=== PATIENT | female | born 1930 | race Caucasian/White ===

== ENCOUNTER 2016-10-27 22:32 | Emergency (ER) | payer OTHER ==
[~2016-10-27] VITALS: Ht 154.9 cm; Wt 76.1 kg
[~2016-10-27 22:32] MED LIST: ALPR-411 PO; ASPCH81X PO; CHLORTHALIDONE 25 MG PO; LISI10TA PO; [UNRECOGNIZED DRUG - MIXTURE] PO
[2016-10-27 22:42] VITALS: Ht 154.9 cm; Wt 76.1 kg
[2016-10-27 22:43] VITALS: O2SAT 94
[2016-10-27] MEDS ORDERED: HYG/25 PO (23:09)
[2016-10-27] MEDS ORDERED: CHOL2000 PO (23:09)
[2016-10-27] MEDS ORDERED: CALC-20 PO (23:09)
[2016-10-27] MEDS ORDERED: FSMD/70 PO (23:09)
[2016-10-27 23:35] LABS: BASO % 0.2 %; BASO ABS # 0.01 K/uL (0-0.2); COMPLETE YES; EOS % 1.1 %; HEMATOCRIT 37.3 % (37-47); IG% 0.2 %; LYMPH % 27.5 %; LYMPH ABS # 1.71 K/uL (1.2-3.4); MEAN CORPUSCULAR HEMOGLOBIN 29.6 pg (25-34); MEAN CORPUSCULAR HGB CONC 34.9 g/dl (32-36); MEAN PLATELET VOLUME 11.2 fL (7.4-10.4); MONO % 2.3 %; NEUT % 68.7 %; PLATELET COUNT 210 K/uL (130-400); RED BLOOD COUNT 4.39 M/uL (4.2-5.4); WHITE BLOOD COUNT 6.21 K/uL (4.8-10.8)
[2016-10-27 23:46] LABS: INR 0.9 (0.9-1.1); PROTHROMBIN TIME (PATIENT) 9.7 SECONDS (9.0-12.0)
[2016-10-27 23:59] LABS: ALT/SGPT 21 U/L (12-78); BLOOD UREA NITROGEN 12 mg/dl (7-18); CALCIUM 8.9 mg/dl (8.5-10.1); CARBON DIOXIDE 27 mmol/L (21-32); CHLORIDE 102 mmol/L (98-107); CREATININE 0.73 mg/dl (0.60-1.20); GLUCOSE 110 mg/dl (70-99); POTASSIUM 3.9 mmol/L (3.5-5.1); SODIUM 139 mmol/L (136-145)
[2016-10-28 00:10] LABS: ALKALINE PHOSPHATASE 144 U/L (45-117); AST/SGOT 22 U/L (15-37); CKMB/CK RATIO 1.2 (0-3.0)
[2016-10-28 00:40] LABS: URINE APPEARANCE CLEAR (CLEAR); URINE BILIRUBIN NEG (NEG); URINE COLOR YELLOW; URINE EPITHELIAL CELL AUTO 20-30 /lpf (0-5); URINE NITRITE NEG (NEG); URINE SPECIFIC GRAVITY 1.012 (1.000-1.030); UROBILINOGEN NEG (NEG)
[2016-10-28 00:41] LABS: MANUAL MICROSCOPIC REQUIRED? NO; REVIEW REQ? NO
[2016-10-28] MEDS ORDERED: LEVOFLOXACIN 250 MG TAB PO STA (00:53)
[2016-10-28] MEDS ORDERED: CEFTRIAXONE SOD INJ 1 GM ADDVIAL IV STA (00:53)
[2016-10-28] MEDS ORDERED: LEVO-366 PO (01:21)
--- NOTE | 2016-10-28 01:21 | EMERGENCY ROOM VISIT NOTE ---
History Report prepared by James: Irineo Brock Under the Supervision of: Dr. Dung Horn D.O. First contact with patient: 23:27 Chief Complaint: CARDIAC ASSESSMENT Stated Complaint: CARDIAC ASSESMENT Nursing Triage Summary: ABOUT 2144 GOT OUT OF CHAIR HAD "SHAKING " AND SUDDEN SOB. SOB WENT AWAT, FELT BETTER. DENIES CP. DENIES COUGH, HAVING SLIGHT NAUSEA THINKS IT IS HER NERVES. [facility] History of Present Illness The patient is an 86 year old female who presents to the Emergency Room for an acute cardiac assessment. The patient states that around 2144 tonight she started shaking and became short of breath. The patient is no longer short of breath and the shaking has improved. The patient's family notes that the shaking in the patient's arms was very obvious. She had some diarrhea yesterday. The patient denies recent cough, congestion, sore throat, chest pain , abdominal pain, urinary symptoms, or rashes. Per nursing staff, the patient was febrile upon arrival to the ED. Source of History: patient, family, nursing staff Onset: 2144 tonight Position: other (global) Quality: other (cardiac assessment) Timing: other (acute) Associated Symptoms: + fevers, + SOB, + diarrhea, No sorethroat, No cough, No chest pain, No abdominal pain, No urinary symptoms, No rash Review of Systems See HPI for pertinent positives & negatives. A total of 10 systems reviewed and were otherwise negative. Past Medical & Surgical Medical Problems: (1) HTN (hypertension) (2) Osteoporosis Family History Diabetes mellitus Heart disease Social History Smoking Status: Never Smoker Alcohol Use: none Current/Historical Medications Scheduled Alendronate/Cholecalciferol (Fosamax+D 70MG/2800 Iu), 1 TABLET PO WK Aspirin (Aspirin Chewable), 81 MG PO DAILY Calcium Carbonate-Vitamin D (Calcium 600 + D), 1 TAB PO DAILY Chlorthalidone (Hygroton), 12.5 MG PO DAILY Cholecalciferol (Vitamin D3), 1 CAP PO DAILY Levofloxacin (Levaquin), 500 MG PO DAILY Allergies Coded Allergies: No Known Allergies (Verified , 10/27/16) Physical Exam Vital Signs Date Time Temp Pulse Resp B/P (MAP) Pulse Ox O2 Delivery O2 Flow Rate FiO2 10/28/16 00:32 78 20 155/86 96 Room Air 10/27/16 22:43 86 10/27/16 22:43 94 Room Air 10/27/16 22:42 38.5 87 20 163/89 95 Room Air 10/27/16 22:34 94 Room Air Physical Exam CONSTITUTIONAL/VITAL SIGNS: Reviewed / noted above. GENERAL: Non-toxic in appearance. INTEGUMENTARY: Warm, dry, and [place]. HEAD: Normocephalic. EYES: without scleral icterus or trauma. ENT/OROPHARYNX: clear and moist. LYMPHADENOPATHY/NECK: Is supple without lymphadenopathy or meningismus. RESPIRATORY: Lungs clear and equal. CARDIOVASCULAR: Regular rate and rhythm. GI/ABDOMEN: Soft and nontender. No organomegaly or pulsatile mass. No rebound or guarding. Normal bowel sounds. EXTREMITIES: Warm and well perfused. BACK: No CVA tenderness. NEUROLOGICAL: Intact without focal deficits. PSYCHIATRIC: normal affect. MUSCULOSKELETAL: Normally developed with good muscle tone. Medical Decision & Procedures ER Provider Diagnostic Interpretation: X ray results and stated below per my interpretation. Chest One View Portable: No active disease, no pneumothorax or pneumonia. Laboratory Results 10/27/16 22:43 Red Blood Count 4.39, Mean Corpuscular Volume 85.0, Mean Corpuscular Hemoglobin 29.6, Mean Corpuscular Hemoglobin Concent 34.9, Mean Platelet Volume 11.2, Neutrophils (%) (Auto) 68.7, Lymphocytes (%) (Auto) 27.5, Monocytes (%) (Auto) 2.3, Eosinophils (%) (Auto) 1.1, Basophils (%) (Auto) 0.2, Neutrophils # (Auto) 4.27, Lymphocytes # (Auto) 1.71, Monocytes # (Auto) 0.14, Eosinophils # (Auto) 0.07, Basophils # (Auto) 0.01 10/27/16 22:43 Test 10/27/16 22:43 10/27/16 23:01 10/27/16 23:03 10/28/16 00:25 White Blood Count 6.21 K/uL (4.8-10.8) Red Blood Count 4.39 M/uL (4.2-5.4) Hemoglobin 13.0 g/dL (12.0-16.0) Hematocrit 37.3 % (37-47) Mean Corpuscular Volume 85.0 fL (80-100) Mean Corpuscular Hemoglobin 29.6 pg (25-34) Mean Corpuscular Hemoglobin Concent 34.9 g/dl (32-36) Platelet Count 210 K/uL (130-400) Mean Platelet Volume 11.2 fL (7.4-10.4) Neutrophils (%) (Auto) 68.7 % Lymphocytes (%) (Auto) 27.5 % Monocytes (%) (Auto) 2.3 % Eosinophils (%) (Auto) 1.1 % Basophils (%) (Auto) 0.2 % Neutrophils # (Auto) 4.27 K/uL (1.4-6.5) Lymphocytes # (Auto) 1.71 K/uL (1.2-3.4) Monocytes # (Auto) 0.14 K/uL (0.11-0.59) Eosinophils # (Auto) 0.07 K/uL (0-0.5) Basophils # (Auto) 0.01 K/uL (0-0.2) RDW Standard Deviation 39.4 fL (36.4-46.3) RDW Coefficient of Variation 12.7 % (11.5-14.5) Immature Granulocyte % (Auto) 0.2 % Immature Granulocyte # (Auto) 0.01 K/uL (0.00-0.02) Prothrombin Time 9.7 SECONDS (9.0-12.0) Prothromb Time International Ratio 0.9 (0.9-1.1) Activated Partial Thromboplast Time 25.9 SECONDS (21.0-31.0) Partial Thromboplastin Ratio 1.0 Anion Gap 10.0 mmol/L (3-11) Est Creatinine Clear Calc Drug Dose 53.5 ml/min Estimated GFR () 87.7 Estimated GFR (Non- 75.6 BUN/Creatinine Ratio 16.0 (10-20) Calcium Level 8.9 mg/dl (8.5-10.1) Total Bilirubin 0.3 mg/dl (0.2-1) Direct Bilirubin < 0.1 mg/dl (0-0.2) Aspartate Amino Transf (AST/SGOT) 22 U/L (15-37) Alanine Aminotransferase (ALT/SGPT) 21 U/L (12-78) Alkaline Phosphatase 144 U/L (45-117) Total Creatine Kinase 68 U/L (26-192) Creatine Kinase MB 0.8 ng/ml (0.5-3.6) Creatine Kinase MB Ratio 1.2 (0-3.0) Troponin I < 0.015 ng/ml (0-0.045) Total Protein 7.7 gm/dl (6.4-8.2) Albumin 3.5 gm/dl (3.4-5.0) Lipase 88 U/L (73-393) Thyroid Stimulating Hormone (TSH) 2.100 uIu/ml (0.300-4.500) Bedside Lactic Acid Venous 1.54 mmol/L (0.90-1.70) Bedside Glucose 132 mg/dl (70-90) Urine Color YELLOW Urine Appearance CLEAR (CLEAR) Urine pH 7.0 (4.5-7.5) Urine Specific [place] 1.012 (1.000-1.030) Urine Protein NEG (NEG) Urine Glucose (UA) NEG (NEG) Urine Ketones NEG (NEG) Urine Occult Blood TRACE (NEG) Urine Nitrite NEG (NEG) Urine Bilirubin NEG (NEG) Urine Urobilinogen NEG (NEG) Urine Leukocyte Esterase MODERATE (NEG) Urine WBC (Auto) 10-30 /hpf (0-5) Urine RBC (Auto) 0-4 /hpf (0-4) Urine Hyaline Casts (Auto) 0 /lpf (0-5) Urine Epithelial Cells (Auto) 20-30 /lpf (0-5) Urine Bacteria (Auto) NEG (NEG) Laboratory results as stated above per my review. Medications Administered Medications (Trade) Dose Ordered Sig/Nick Route Start Time Stop Time Status Last Admin Dose Admin Ceftriaxone Sodium (Rocephin Inj) 1 gm NOW STAT IV 10/28/16 00:53 10/28/16 00:55 DC 10/28/16 01:04 1 GM Levofloxacin (Levaquin Tab) 500 mg NOW STAT PO 10/28/16 00:53 10/28/16 00:55 DC 10/28/16 01:04 500 MG ECG Indication: SOB/dyspnea Rate (beats per minute): 86 Rhythm: normal sinus Findings: no acute ischemic change, no ectopy ED Course 0014: Previous medical records were reviewed. The patient was evaluated in room B6. A complete history and physical examination was performed. 0053: Levofloxacin 500 mg PO, Rocephin 1 gm IV. 0120: Reassessed the patient. Discussed the workup with her and the family. They verbalized understanding and agreement with the discharge instructions. The patient is ready for discharge. Medical Decision Differential includes acute coronary syndrome, myocardial infarction, CVA, TIA, anemia, infection, pneumonia, UTI, pyelonephritis, poor nutrition, dehydration, electrolyte disturbance,hypoglycemia. Medication Reconciliation: I attest that I have personally reviewed the patient' s current medication list. Blood pressure Screening: Patient was found to have an elevated blood pressure and was referred to their primary doctor for recheck and further treatment. This is an 86-year-old female who presents to the ED with a chief complaint of shaking and shivering. The patient states that she had some uncontrollable shaking shortly prior to arrival. She also reported some mild shortness of breath during the episode. She was transported here by EMS. Upon her arrival, her symptoms seemed to resolve. She did not receive treatment. The patient has no complaints right now other than feeling a little tired. She denies any upper respiratory complaints. Denies any chest pains or shortness of breath. No fever or cough. She did have a few loose bowel movements yesterday but did not have any loose bowel movements today. She denies any urinary symptoms. She has no rashes. Temperature here was 38.5. Blood pressure was elevated. Exam did not reveal any abnormalities. Chest x-ray is negative for acute disease, per my interpretation. CBC is normal. PRP is normal. Lactate level is normal. LFTs are normal. Troponin was negative. Urine is somewhat suggestive of UTI. The patient was given IV Rocephin. She was discharged on Levaquin. She was given a dose here. She is felt to be stable for discharge and outpatient follow-up. Impression Primary Impression: UTI (urinary tract infection) Scribe Attestation The scribe's documentation has been prepared under my direction and personally reviewed by me in its entirety. I confirm that the note above accurately reflects all work, treatment, procedures, and medical decision making performed by me. Departure Information Dispostion Home / Self-Care Prescriptions Levofloxacin (Levaquin) 500 Mg Tab 500 MG PO DAILY for 7 Days, #7 TAB Prov: Dung Horn D.O. 10/28/16 Referrals Jossue Camara M.D. (PCP) Forms IMPORTANT VISIT INFORMATION Patient Instructions [facility], UTI Additional Instructions Levaquin as prescribed. Follow-up with your doctor for further care and evaluation in 1-2 days. Return to the emergency department for worsening or new symptoms or any concerns. You have been examined and treated today on an emergency basis only. This is not a substitute for, or an effort to provide, complete comprehensive medical care. It is impossible to recognize and treat all injuries or illnesses in a single emergency department visit. It is therefore important that you follow up closely with your doctor. Call as soon as possible for an appointment. Problem Qualifiers Primary Impression: UTI (urinary tract infection) Indwelling urinary catheter type: unspecified Encounter type: initial encounter
[2016-10-28 01:56] VITALS: BP 134/90; PULSE 78; TEMP 37; O2SAT 96
--- NOTE | 2016-10-28 07:08 | DIAGNOSTIC IMAGING REPORT ---
CHEST ONE VIEW PORTABLE CLINICAL HISTORY: Fever. Sepsis. COMPARISON STUDY: Chest radiograph and chest CT September 18, 2012. FINDINGS: Lung volumes are at the lower limits of normal. Mild cardiomegaly is unchanged. There is no evidence of pulmonary edema. There is no consolidation to suggest pneumonia. Mild bibasilar opacities favor atelectasis. There is no consolidation to suggest pneumonia. Appearance of the chest is unchanged. IMPRESSION: No acute cardiopulmonary findings. Electronically signed by: Connor Cardenas M.D. 10/28/2016 7:07 AM Dictated Date/Time: 10/28/2016 7:05 AM
== END 2016-10-28 01:59 | disposition home or self-care (01) ==
LOC: EDBD 22:32 → C.EDB 22:33
DX: N39.0 Urinary tract infection, site not specified (principal); I10 Essential (primary) hypertension; M81.0 Age-related osteoporosis without current pathological fracture; Z79.82 Long term (current) use of aspirin

== ENCOUNTER → 2017-01-07 | Outpatient (CLI) | payer OTHER ==
[~2017-01-07] MED LIST changes: -ALPR-411 PO; +CALC-20 PO; -CHLORTHALIDONE 25 MG PO; +CHOL2000 PO; +FSMD/70 PO; +HYG/25 PO; -LISI10TA PO; -[UNRECOGNIZED DRUG - MIXTURE] PO
--- NOTE | 2017-01-07 12:39 | MAMMOGRAPHY REPORT ---
BILATERAL DIGITAL SCREENING MAMMOGRAM WITH CAD: 01/07/2017 CLINICAL HISTORY: Routine screening. Patient has no complaints. TECHNIQUE: Bilateral CC and MLO views were obtained. A repeat left cc view was performed for a skin fold. Current study was also evaluated with a Computer Aided Detection (CAD) system. COMPARISON: Comparison is made to exams dated: 01/03/2016 mammogram, 12/30/2014 mammogram, 12/14/2013 m ammogram, 12/03/2012 mammogram, 11/26/2011 mammogram, and 11/22/2010 mammogram - [facility] nter. BREAST COMPOSITION: There are scattered areas of fibroglandular density in both breasts. FINDINGS: There are moderate vascular calcifications in the breasts. Stable punctate benign-appearin g left breast microcalcifications. No new suspicious mass, architectural distortion or cluster of mi crocalcifications is seen. IMPRESSION: ACR BI-RADS CATEGORY 1: NEGATIVE There is no mammographic evidence of malignancy. A 1 year screening mammogram is recommended. The pa tient will receive written notification of the results. Approximately 10% of breast cancers are not detected with mammography. A negative mammographic report should not delay biopsy if a clinically suggestive mass is present. Yen Kwan M.D. ay/:01/07/2017 10:55:26 [employer]othermal Electrical Engineer: Angelina GRAFF)(Lazaro)([place]), [facility] letter sent: Normal 1/2 BI-RADS Code: ACR BI-RADS Category 1: Negative
== END | disposition home or self-care (01) ==
LOC: C.MAMM 09:01
PROVIDERS: ATTEND Family Medicine
DX: Z12.31 Encounter for screening mammogram for malignant neoplasm of breast (principal)

== ENCOUNTER 2021-11-19 18:34 | Inpatient (IN) ==
--- NOTE | 2021-11-19 19:10 | Emergency Department Note ---
Impression & Plan Hypoxia, SOB (shortness of breath), Hypomagnesemia, Hypercalcemia, Metastatic lung carcinoma, Hypokalemia ED Provider Note INFORMANT: Patient and family ED PROVIDER(S): Pawel Dominguez MD CHIEF COMPLAINT: Shortness of breath PLAN: Disposition: Admitted Condition: Good Outpatient prescription management: none Referral: None MEDICAL DECISION MAKING: Patient presented because of shortness of breath. Work-up initiated. She was requiring supplemental oxygen and she was mildly hypoxic. She did feel better with this. Patient had a chest x-ray performed as was very concerning with m ultiple metastatic appearing lesions. She had a unremarkable CBC. Coags were negative. Potassium was mildly low as well as magnesium. Her calcium was elevated. An ECG was performed and did show some changes inferiorly as well as Q waves septally and laterally. The patient was hydrated. She was given oral potassium as well as IV magnesium. CT imaging was performed and revealed no evidence of thromboembolic disease. There was no infiltrate noted. The patient has what appears to be extensive metastatic disease. This was described to the patient and family. Further management in the hospital will be necessary. [facility] Patient was evaluated in the ER and admitted for further management. Triage Nursing notes reviewed and agree them. Vital Signs: reviewed and remarkable for hypoxia Differential diagnosis: Reactive airway disease, pneumonia, pneumothorax, COPD, CHF, infections, cardiac ischemia, pulmonary embolism, musculoskeletal, gastrointestinal, as well as other pathologies. Diagnostics interpreted by me: ECG: Twelve-lead ECG revealed sinus tachycardia at 103 bpm. Left atrial enlargement. There are lateral Q waves as well as septal Q waves present. There is a nonspecific inferior T wave changes. No ST elevation. Cardiac Monitoring: Cardiac monitoring ordered by me: The patient was placed on continuous cardiac monitoring and observed. It revealed a tachycardic rhythm at 105 bpm. Imaging studies: Chest x-ray and CT scan as above. HPI: The patient is a 89year old female who presents to the Emergency Room with complaints of shortness of breath. This started several weeks ago and is noticeably worse over the last few days. The patient also notes the following associated symptoms, dyspnea on exertion, generalized weakness occasional cough and back pains.. The patient has found no relieving factors. Current pain is rated as 0/10. Patient has a history of throat cancer and was going through chemotherapy. She states a scan was done recently and she was found to have lung cancer. Denies any leg pain or swelling. Pt denies LOC, headache, fevers, chills, diaphoresis, visual changes, neck pain, chest pain, nausea, vomiting, abdominal pain, melena, hematochezia, urinary symptoms, numbness, lymphadenop athy, rash, or other complaints. ROS: See above HPI for pertinent positives & negatives. A total of 10 systems reviewed and were otherwise negative. PAST MEDICAL HISTORY:See Below , throat cancer PAST SURGICAL HISTORY:See Below, FAMILY HISTORY:See Below SOCIAL HISTORY:See Below, retired HOME MEDICATIONS:See Below ALLERGIES:See Below VITALS:See Below PHYSICAL EXAMINATION: GENERAL: Awake, alert, dyspneic-appearing, in no distress HENT: Normocephalic, atraumatic. Oropharynx unremarkable. EYES: Normal conjunctiva. Sclera non-icteric. NECK: Inspection normal. Non-tender. Supple. No nuchal rigidity. FROM. No masses. RESPIRATORY: Clear to auscultation. No wheezes. No rales. Increased respiratory effort. Tachypnea. CARDIAC: Normal rate. Normal rhythm. Systolic ejection murmur murmurs. No rubs. Extremities warm and well perfused. Pulses equal. No JVD. GI: Soft, non-distended. No tenderness to palpation. No rebound or guarding. No masses. RECTAL: Deferred. MUSCULOSKELETAL: Atraumatic. Chest examination reveals no tenderness. The back is symmetrical on inspection without obvious abnormality. There is no CVA tenderness to palpation. No joint edema. LOWER EXTREMITIES: Calves are equal size bilaterally and non-tender. 1+ edema. No discoloration. NEURO: Normal sensorium. No sensory or motor deficits noted. SKIN: No rash or jaundice noted. Critical CARE: I have personally spent greater than 32 minutes of critical care time in the direct management of this patient. This includes bedside care, interpretation of diagnostic studies, and testing, discussion with consultants, patient, and family members, and other required patient management activities. These minutes are in excess of all separately billable procedures. Pawel Dominguez MD Past Med/Surg History Social History Smoking Status: Never smoker Feels Safe at Home: Yes Allergies Allergies Allergy/AdvReac Type Severity Reaction Status Date / Time No Known Allergies Allergy Verified 06/25/17 23:08 Home Meds Home Medications Medication Instructions Recorded Confirmed ASPIRIN (ASPIRIN CHEWABLE) 81 mg PO DAILY ##0 06/16/09 Alendronate/Cholecalciferol 1 tab PO WK ##0 10/27/16 (Fosamax+D 70MG/2800 Iu) CALCIUM CARBONATE-VITAMIN D 1 tab PO DAILY ##0 10/27/16 (CALCIUM 600 + D) CHLORTHALIDONE (HYGROTON) 12.5 mg PO DAILY #0 tabs 10/27/16 CHOLECALCIFEROL (VITAMIN D3) 1 cap PO DAILY 90 days #90 caps 10/27/16 Results & Data (ED) Vital Signs Vital Signs - 24 hr 11/19/21 18:37 11/19/21 18:43 11/19/21 20:20 Temperature 36.8 C Temperature Source Temporal Artery Scan Pulse Rate 109 H Pulse Rate [Apical] 105 H Respiratory Rate 18 39 H Respiratory Effort / Characteristics Non-Labored Spontaneous Respiratory Depth Normal Respiratory Pattern Regular Blood Pressure 135/79 Blood Pressure [Right Arm] 168/103 H Blood Pressure Mean 97 Blood Pressure Mean [Right Arm] 124 Pulse Oximetry 87 L 87 L 93 Oxygen Delivery Method Room Air Nasal Cannula Nasal Cannula Oxygen Flow Rate 0 2 Sepsis Recent Fever Within 48 Hours No Sepsis New/Unexplained Change in Mental Status No Sepsis Action Taken by Nursing No Action Required Oxygen Flow Rate - Titration 3 Pulse Oximetry Post Tiitration 93 Laboratory Data Result diagrams: 11/19/21 19:15 11/19/21 19:15 Lab Results 11/19/21 11/19/21 11/19/21 Range/Units 16:13 19:15 19:15 WBC 9.83 (4.8-10.8) K/ul RBC 4.79 (3.93-5.22) M/uL Hgb 13.4 (12.0-16.0) g/dl Hct 40.3 (34.1-44.9) % MCV 84.1 (80.0-100.0) fL MCH 28.0 (25.0-34.0) pg MCHC 33.3 (32.0-36.0) g/dL RDW Std Deviation 45.3 (36.4-46.3) fL RDW Coeff of Darnell 14.9 H (11.5-14.5) % Plt Count 208 (130-400) K/uL MPV 11.0 (9.4-12.3) fL Immature Gran % (Auto) 0.7 % Neut % (Auto) 77.7 % Lymph % (Auto) 9.8 % Emanuel % (Auto) 11.1 % Eos % (Auto) 0.6 % Baso % (Auto) 0.1 % Neut # (Auto) 7.64 H (1.4-6.5) K/uL Lymph # (Auto) 0.96 L (1.2-3.4) K/uL Emanuel # (Auto) 1.09 H (0.24-0.82) K/uL Eos # (Auto) 0.06 (0-0.50) K/uL Baso # (Auto) 0.01 (0-0.2) K/uL Immature Gran # (Auto) 0.07 H (0.00-0.02) K/uL PT 10.2 (9.0-12.0) Seconds INR 1.0 (0.9-1.1) APTT 22.5 (21.0-31.0) Seconds PTT Ratio 0.8 Sodium (136-145) mmol/L Potassium (3.5-5.1) mmol/L Chloride (98-107) mmol/L Carbon Dioxide (21-32) mmol/L Anion Gap (3-11) BUN (6-23) mg/dl Creatinine (0.6-1.2) mg/dl Est Cr Clr Drug Dosing Est GFR ( Amer) ml/min Est GFR (Non-Af Amer) ml/min BUN/Creatinine Ratio (10-20) Glucose (70-99(Fasting)) mg/dl Calcium (8.5-10.1) mg/dl Magnesium (1.7-2.4) mg/dl Total Bilirubin (0.2-1.0) mg/dl AST (13-39) U/L ALT (7-52) U/L Alkaline Phosphatase (34-104) U/L Total Protein (6.0-8.3) gm/dl Albumin (3.4-5.0) gm/dl Globulin (2.5-4.0) gm/dl Albumin/Globulin Ratio (0.9-2) SARS-CoV-2, RNA, NAAT NEGATIVE (NEGATIVE) 11/19/21 Range/Units 19:15 WBC (4.8-10.8) K/ul RBC (3.93-5.22) M/uL Hgb (12.0-16.0) g/dl Hct (34.1-44.9) % MCV (80.0-100.0) fL MCH (25.0-34.0) pg MCHC (32.0-36.0) g/dL RDW Std Deviation (36.4-46.3) fL RDW Coeff of Darnell (11.5-14.5) % Plt Count (130-400) K/uL MPV (9.4-12.3) fL Immature Gran % (Auto) % Neut % (Auto) % Lymph % (Auto) % Emanuel % (Auto) % Eos % (Auto) % Baso % (Auto) % Neut # (Auto) (1.4-6.5) K/uL Lymph # (Auto) (1.2-3.4) K/uL Emanuel # (Auto) (0.24-0.82) K/uL Eos # (Auto) (0-0.50) K/uL Baso # (Auto) (0-0.2) K/uL Immature Gran # (Auto) (0.00-0.02) K/uL PT (9.0-12.0) Seconds INR (0.9-1.1) APTT (21.0-31.0) Seconds PTT Ratio Sodium 137 (136-145) mmol/L Potassium 3.1 L (3.5-5.1) mmol/L Chloride 96 L (98-107) mmol/L Carbon Dioxide 31 (21-32) mmol/L Anion Gap 10 (3-11) BUN 18 (6-23) mg/dl Creatinine 0.84 (0.6-1.2) mg/dl Est Cr Clr Drug Dosing Not Reportable Est GFR ( Amer) 71.4 ml/min Est GFR (Non-Af Amer) 61.6 ml/min BUN/Creatinine Ratio 21.4 H (10-20) Glucose 178 H (70-99(Fasting)) mg/dl Calcium 11.3 H (8.5-10.1) mg/dl Magnesium 1.3 L (1.7-2.4) mg/dl Total Bilirubin 0.8 (0.2-1.0) mg/dl AST 21 (13-39) U/L ALT 10 (7-52) U/L Alkaline Phosphatase 121 H (34-104) U/L Total Protein 6.6 (6.0-8.3) gm/dl Albumin 3.6 (3.4-5.0) gm/dl Globulin 3.0 (2.5-4.0) gm/dl Albumin/Globulin Ratio 1.2 (0.9-2) SARS-CoV-2, RNA, NAAT (NEGATIVE) Administered Medications Magnesium Sulfate/Dextrose (Magnesium Sulfate / D5w) 1 gm in 100 mls @ 100 mls/hr IV NOW STA Stop: 11/19/21 21:15 Last Admin: 11/19/21 20:49 Dose: 100 mls/hr Documented By: MED Discontinued Medications Sodium Chloride (Nss 1000ml) 500 mls @ 999 mls/hr IV .Q31M ONE Stop: 11/19/21 20:48 Last Admin: 11/19/21 20:53 Dose: 999 mls/hr Documented By: ANNIE Ioversol (Optiray 320 125ml) 118 ml IV ONCE ONE Stop: 11/19/21 19:51 Last Admin: 11/19/21 19:52 Dose: 118 ml Documented By: [facility] Potassium Chloride (Potassium Chloride Crtab 20 Meq Tabcr) 20 meq PO NOW STA Stop: 11/19/21 20:17 Last Admin: 11/19/21 20:50 Dose: 20 meq Documented By: ANNIE Imaging Data Radiologist's Impression: Chest X-Ray 11/19/21 18:45 SINGLE VIEW CHEST CLINICAL HISTORY: Dyspnea FINDINGS: An AP, portable, upright chest radiograph is compared to study dated 10/27/2016 and correlated with chest CT dated 09/18/2012. The heart is enlarged noting atherosclerotic calcification of the thoracic aorta. The pulmonary vasculature is noncongested. The mitral annulus is densely calcified. Large mass lesions are seen throughout both lungs, typical for multifocal metastatic disease. There is a layering left pleural effusion with associated consolidation. Scarring/atelectasis is noted at the right lung base. No pneumothorax is seen. The skeletal structures are osteopenic. The bony thorax is grossly intact. Calcific tendinopathy is noted in the right shoulder. IMPRESSION: 1. Large pulmonary mass lesions or new from previous and typical for multifocal metastatic disease. Correlate with the patient's oncological history. 2. Layering left pleural effusion with associated consolidation. 3. Cardiomegaly without radiographic evidence of congestive failure.. ACT 112: Negative or not required by law. Electronically signed by: Ludwin Merino M.D. 11/19/2021 7:48 PM Chest CTA 11/19/21 19:07 CT ANGIOGRAM OF THE CHEST CLINICAL HISTORY: Dyspnea COMPARISON STUDY: Chest x-ray dated 11/19/2021. Chest CT dated 09/18/2012. TECHNIQUE: Following the IV administration of 118 cc of Optiray 320, CT angiogram of the chest was performed from the upper abdomen to the thoracic inlet utilizing the pulmonary embolus protocol. Images are reviewed in the axial, sagittal, and coronal planes. 3-D MIPS images are created and assessed. IV contrast was administered without complication. A dose lowering technique was utilized adhering to the principles of ALARA. CT DOSE: 228.58 mGy.cm FINDINGS: Thyroid: Heterogeneous thyroid goiter is similar to 2013. Thoracic aorta: There is mild atherosclerotic calcification of the thoracic aorta, which is normal in caliber and demonstrates standard 3-vessel arch anatomy. No dissection is seen. Pulmonary vasculature: The main pulmonary arteries are dilated indicating pulmon juancarlos artery hypertension. There are no filling defects identified in main, lobar, or segmental pulmonary branches to suggest pulmonary embolus. Heart: The heart is enlarged and without pericardial effusion. The coronary arteries and mitral annulus are densely calcified. Lungs and pleural spaces: There is complete atelectasis of the left upper lobe and a small left pleural effusion. There are large mass lesions seen throughout both lungs consistent with multifocal metastatic disease, with greater than 20 lesions identified. The largest lesion in the right lung is seen in the upper lobe on image #193 and measures up to 6 cm. The largest lesion in the left lung as seen on image 132 and measures 4 cm. Upper lobe lesions cannot be evaluated due to atelectasis. There is complete occlusion of the left upper lobe bronchus. The trachea and mainstem bronchi are patent. Mediastinum: There is no mediastinal lymphadenopathy. Susana: The left hilum is partially obscured. No hilar adenopathy is clearly identified. Axillae: There is no axillary lymphadenopathy. Upper abdomen: A 2.2 cm left adrenal nodule has not significant changed dating back to 2012. There is a small hiatal hernia. Skeletal structures: The skeletal structures are osteopenic. No lytic or blastic bony lesions are seen. An 11 mm sclerotic focus in the left humeral head is unchanged from 2013. IMPRESSION: 1. There is no evidence of pulmonary embolus in the main, lobar, or segmental pulmonary arteries. 2. Findings of extensive/diffuse multifocal pulmonary metastatic disease as above. Correlate with the patient's oncological history. 3. There is complete atelectasis of the left upper lobe and a small left pleural effusion. 4. Cardiomegaly with evidence of pulmonary artery hypertension. 5. Additional findings as above. ACT 112: Negative or not required by law. Electronically signed by: Ludwin Merino M.D. 11/19/2021 8:10 PM Discharge Plan Visit Data Chief Complaint: Shortness of Breath/Dyspnea Stated Complaint: HAS LUNG CANCER. SOB ED Provider: Pawel Dominguez Discharge Problem: Hypoxia, SOB (shortness of breath), Hypomagnesemia, Hypercalcemia, Metastatic lung carcinoma, Hypokalemia Forms Stand Alone Forms: My [facility] Card Prescriptions Prescriptions: No Action ASPIRIN (ASPIRIN CHEWABLE) 81 MG CHEWABLE TAB 81 mg PO DAILY Qty: 0 Alendronate/Cholecalciferol (Fosamax+D 70MG/2800 Iu) 70 MG tablet 1 tab PO WK Qty: 0 Label Comments: TAKE DAILY ON SATURDAYS CALCIUM CARBONATE-VITAMIN D (CALCIUM 600 + D) 1 TAB tablet 1 tab PO DAILY Qty: 0 CHLORTHALIDONE (HYGROTON) 25 MG tablet 12.5 mg PO DAILY Qty: 0 CHOLECALCIFEROL (VITAMIN D3) 2,000 UNIT capsule 1 cap PO DAILY 90 Days Qty: 90 Referrals Referrals: Jossue Camara MD [Primary Care Provider] -
[2021-11-19 19:44] LABS: Basophils # (auto) 0.01 K/uL (0-0.2); Basophils % (auto) 0.1 %; Eosinophils # (auto) 0.06 K/uL (0-0.50); Eosinophils % (auto) 0.6 %; Hematocrit (blood only) 40.3 % (34.1-44.9); Hemoglobin 13.4 g/dl (12.0-16.0); Immature Granulocytes # (auto) 0.07 K/uL (0.00-0.02); Immature Granulocytes % (auto) 0.7 %; Lymphocytes # (auto) 0.96 K/uL (1.2-3.4); Lymphocytes % (auto) 9.8 %; Mean Corpuscular Hgb Conc 33.3 g/dL (32.0-36.0); Mean Corpuscular Volume 84.1 fL (80.0-100.0); Monocytes # (auto) 1.09 K/uL (0.24-0.82); Monocytes % (auto) 11.1 %; Neutrophils # (auto) 7.64 K/uL (1.4-6.5); Neutrophils % (auto) 77.7 %; Platelet Count 208 K/uL (130-400); RDW Coefficient of Variation 14.9 % (11.5-14.5); RDW Standard Deviation 45.3 fL (36.4-46.3); Red Blood Count 4.79 M/uL (3.93-5.22); White Blood Count 9.83 K/ul (4.8-10.8)
--- NOTE | 2021-11-19 19:49 | XRay Report ---
SINGLE VIEW CHEST CLINICAL HISTORY: Dyspnea FINDINGS: An AP, portable, upright chest radiograph is compared to study dated 10/27/2016 and correlat ed with chest CT dated 09/18/2012. The heart is enlarged noting atherosclerotic calcification of the t horacic aorta. The pulmonary vasculature is noncongested. The mitral annulus is densely calcified. La rge mass lesions are seen throughout both lungs, typical for multifocal metastatic disease. There is a layering left pleural effusion with associated consolidation. Scarring/atelectasis is noted at the right lung base. No pneumothorax is seen. The skeletal structures are osteopenic. The bony thorax is grossly intact. Calcific tendinopathy is noted in the right shoulder. IMPRESSION: 1. Large pulmonary mass lesions or new from previous and typical for multifocal metastatic disease. C orrelate with the patient's oncological history. 2. Layering left pleural effusion with associated consolidation. 3. Cardiomegaly without radiographic evidence of congestive failure.. ACT 112: Negative or not required by law. Electronically signed by: Ludwin Merino M.D. 11/19/2021 7:48 PM
[2021-11-19] MEDS ORDERED: OPTIRAY 320 125ml IV ONE (19:50)
[2021-11-19 19:56] LABS: Partial Thromboplastin Ratio 0.8; Partial Thromboplastin Time 22.5 Seconds (21.0-31.0); Prothrombin Time 10.2 Seconds (9.0-12.0)
--- NOTE | 2021-11-19 20:12 | CT Scan Report ---
CT ANGIOGRAM OF THE CHEST CLINICAL HISTORY: Dyspnea COMPARISON STUDY: Chest x-ray dated 11/19/2021. Chest CT dated 09/18/2012. TECHNIQUE: Following the IV administration of 118 cc of Optiray 320, CT angiogram of the chest was pe rformed from the upper abdomen to the thoracic inlet utilizing the pulmonary embolus protocol. Images are reviewed in the axial, sagittal, and coronal planes. 3-D MIPS images are created and assessed. I V contrast was administered without complication. A dose lowering technique was utilized adhering to the principles of ALARA. CT DOSE: 228.58 mGy.cm FINDINGS: Thyroid: Heterogeneous thyroid goiter is similar to 2013. Thoracic aorta: There is mild atherosclerotic calcification of the thoracic aorta, which is normal in caliber and demonstrates standard 3-vessel arch anatomy. No dissection is seen. Pulmonary vasculature: The main pulmonary arteries are dilated indicating pulmonary artery hypertensi on. There are no filling defects identified in main, lobar, or segmental pulmonary branches to sugges t pulmonary embolus. Heart: The heart is enlarged and without pericardial effusion. The coronary arteries and mitral annul us are densely calcified. Lungs and pleural spaces: There is complete atelectasis of the left upper lobe and a small left pleur al effusion. There are large mass lesions seen throughout both lungs consistent with multifocal metas tatic disease, with greater than 20 lesions identified. The largest lesion in the right lung is seen in the upper lobe on image #193 and measures up to 6 cm. The largest lesion in the left lung as seen on image 132 and measures 4 cm. Upper lobe lesions cannot be evaluated due to atelectasis. There is c omplete occlusion of the left upper lobe bronchus. The trachea and mainstem bronchi are patent. Mediastinum: There is no mediastinal lymphadenopathy. Susana: The left hilum is partially obscured. No hilar adenopathy is clearly identified. Axillae: There is no axillary lymphadenopathy. Upper abdomen: A 2.2 cm left adrenal nodule has not significant changed dating back to 2012. There is a small hiatal hernia. Skeletal structures: The skeletal structures are osteopenic. No lytic or blastic bony lesions are see n. An 11 mm sclerotic focus in the left humeral head is unchanged from 2013. IMPRESSION: 1. There is no evidence of pulmonary embolus in the main, lobar, or segmental pulmonary arteries. 2. Findings of extensive/diffuse multifocal pulmonary metastatic disease as above. Correlate with the patient's oncological history. 3. There is complete atelectasis of the left upper lobe and a small left pleural effusion. 4. Cardiomegaly with evidence of pulmonary artery hypertension. 5. Additional findings as above. ACT 112: Negative or not required by law. Electronically signed by: Ludwin Merino M.D. 11/19/2021 8:10 PM
[2021-11-19 20:13] LABS: Alanine Aminotransferase 10 U/L (7-52); Albumin Globulin Ratio 1.2 (0.9-2); Albumin Level 3.6 gm/dl (3.4-5.0); Alkaline Phosphatase 121 U/L (34-104); Anion Gap 10 (3-11); Aspartate Aminotransferase 21 U/L (13-39); BUN Creatinine Ratio 21.4 (10-20); Bilirubin,Total 0.8 mg/dl (0.2-1.0); Blood Urea Nitrogen 18 mg/dl (6-23); Calcium 11.3 mg/dl (8.5-10.1); Carbon Dioxide 31 mmol/L (21-32); Chloride 96 mmol/L (98-107); Est GFR (African American) 71.4 ml/min; Est GFR (Non-African American) 61.6 ml/min; Glucose 178 mg/dl (70-99(Fasting)); Magnesium 1.3 mg/dl (1.7-2.4); Potassium 3.1 mmol/L (3.5-5.1); Sodium 137 mmol/L (136-145); Total Protein 6.6 gm/dl (6.0-8.3)
[2021-11-19] MEDS ORDERED: POTASSIUM CHLORIDE CRTAB 20 MEQ TABCR PO STA (20:16)
[2021-11-19] MEDS ORDERED: MAGNESIUM SULFATE / D5W 1 GM/100 ML BAG IV STA (20:16)
[2021-11-19] MEDS ORDERED: SODIUM CHLORIDE 0.9% 1000ML 1,000 ML IV STA (20:18)
[2021-11-19] MEDS ORDERED: SODIUM CHLORIDE 0.9% 1000ML 500 ML IV ONE (20:18)
[2021-11-19] MEDS ORDERED: LABETALOL HCL IV 5 MG/ML 20ML IV STA (22:56)
[2021-11-20] MEDS ORDERED: NITROGLYCERIN SL 0.4 MG/TAB TAB SL PRN (01:13)
[2021-11-20] MEDS ORDERED: POLYETHYLENE (MIRALAX) 17 GM PACK PO PRN (01:13)
--- NOTE | 2021-11-20 01:56 | History and Physical Report ---
DATE OF ADMISSION: 11/19/2021. CHIEF COMPLAINT: Shortness of breath. 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 The patient was diagnosed with large cell B-cell lymphoma in August of 2020. She received 6 cycles of mini R-CHOP treatment, last cycle was given in February 2021. It looks like recent PET scan is showing lung involvement and as per the daughter who is in the room patient was supposed to follow with hem/onc, but comes to the ER because of shortness of breath and CT scan showing multiple lung lesions. She was 87% on room air, on 2 liters she is saturating okay, somewhat tachycardic, and blood pressure is high. Potassium was 3.1, magnesium was 1.3, calcium was 11.3. Denies any headache, denies any dizziness, no blurred visions, no earache, no runny nose, no sore throat. Has cough for some time. Appetite is poor. No difficulty swallowing. No chest pain. Has some shortness of breath on exertion. No nausea, no abdominal pain. Normal bowel and bladder movements. Has some swelling in the legs, and lately ambulating with a cane but doesn't ambulate much.. Lives with her daughter. ALLERGIES: No known drug allergies. PAST MEDICAL HISTORY: As mentioned above. PAST SURGICAL HISTORY: Colonoscopy, melanoma skin cancer removed, insertion of tunneled venous access, tonsillectomy and adenoidectomy, sigmoidoscopy. MEDICATIONS: The patient is on alendronate 70 mg p.o. weekly, alprazolam 0.25 mg p.o. at bedtime, aspirin 81 mg p.o. daily, calcium plus vitamin D one tablet p.o. daily, chlorthalidone 12.5 mg p.o. daily, vitamin D 50 mcg p.o. q. 2 days, MiraLax 17 g p.o. daily p.r.n. FAMILY HISTORY: Significant for father has diabetes, heart disorder; mother has heart disorder. SOCIAL HISTORY: . No smoking, no alcohol, no drug use. REVIEW OF SYSTEMS: As per HPI. Rest of review of systems is negative. PHYSICAL EXAMINATION: GENERAL: The patient is old and frail, not in acute distress. VITAL SIGNS: Temperature 36.8, pulse 105, respiratory rate currently in 20s, blood pressure 168/103, oxygen 93% on 2 liters. HEENT: Pupils equal, round and reactive to light. Oral mucosa moist. NECK: No JVD, no neck masses. CARDIOVASCULAR: S1 and S2 heard. Tachycardia. No murmurs. RESPIRATORY SYSTEM: Normal AP diameter. No accessory muscle use. No wheezing, no crackles. ABDOMEN: Soft, bowel sounds present, nontender, no distention. CENTRAL NERVOUS SYSTEM: Cranial nerves II-XII grossly intact, nonfocal. EXTREMITIES: Bilateral lower extremity edema present, no erythema seen. LABORATORY DATA: WBC 9.8, hemoglobin 13.4, hematocrit 40.3, platelets 208. PT 10.5, INR 1, APTT 22.5. Sodium 137, potassium 3.1, chloride 96, bicarbonate 31, BUN 18, creatinine 0.8, serum glucose 178, calcium 11.3, magnesium 1.3, total bilirubin 0.8, AST 21, ALT 10, alkaline phosphatase 121. Troponin I high sensitivity 23.5. BNP 145. SARS-CoV-2 rapid test negative. IMAGING DATA: CTA of the chest is showing no PE. Findings of extensive diffuse multifocal pulmonary metastatic disease. Complete atelectasis of the left upper lobe and small left pleural effusion. Cardiomegaly with evidence of pulmonary arterial hypertension. Chest x-ray, large pulmonary mass lesions, new from previous and multifocal metastatic disease, layering left pleural effusion with associated consolidation. EKG: Sinus tachycardia at a rate of 103, possible left atrial enlargement. st and t wave abnormalities seen. ASSESSMENT AND PLAN: This is an 89-year-old female who presents with shortness of breath and having metastatic lung disease. 1. Shortness of breath, most likely from extensive metastatic lung disease. History of diffuse large B-cell lymphoma, seems to be high grade, status post chemo. Recent PET scan showed lung involvement, supposed to follow with hem/onc. Will give a dose of steroid and nebs p.r.n. Continue oxygen supplementation. Consult pulmonary in the a.m. Discuss with hem/onc in the morning. 2. Electrolyte abnormalities, hypokalemia and hypomagnesemia: Will replace. 3. Hypercalcemia: Getting fluids. Will follow the repeat labs in the a.m. 4. Hypertension: Holding the chlorthalidone. Will place on IV labetalol p.r.n. 5. History of glucose intolerance: Follow A1c levels. 6. Deep venous thrombosis prophylaxis: Lovenox for now. DISPOSITION: Closely monitor in the med tele. PT/OT prior to discharge. Social service to help with discharge planning. Two step Oxygen at discharge. CODE STATUS: DNR/DNI as per discussion with the daughter and the patient. Daughter works in [employer]. Job ID: [id number] [facility]
[2021-11-20] MEDS ORDERED: dexAMETHasone 8 MG in SYRINGE 0 ML IV ONE (02:00)
[2021-11-20] MEDS ORDERED: Patient's HEIGHT &/or WEIGHT Needed SCH (02:00)
[2021-11-20] MEDS: ALPRAZolam 0.25 MG TABLET PO SCH ×2 (02:41→20:53)
[2021-11-20] MEDS: SODIUM CHLORIDE 0.9% 1000ML 1,000 ML IV SCH ×3 (02:41→18:50)
[2021-11-20] MEDS: ACETAMINOPHEN 325 MG TAB PO PRN (02:41)
[2021-11-20 06:11] LABS: Hematocrit (blood only) 34.4 % (34.1-44.9); Hemoglobin 11.4 g/dl (12.0-16.0); Mean Corpuscular Hemoglobin 28.1 pg (25.0-34.0); Mean Corpuscular Hgb Conc 33.1 g/dL (32.0-36.0); Mean Corpuscular Volume 84.9 fL (80.0-100.0); Mean Platelet Volume 10.9 fL (9.4-12.3); Platelet Count 176 K/uL (130-400); RDW Standard Deviation 45.5 fL (36.4-46.3); Red Blood Count 4.05 M/uL (3.93-5.22); White Blood Count 8.88 K/ul (4.8-10.8)
[2021-11-20 06:36] LABS: Calcium 9.5 mg/dl (8.5-10.1); Est GFR (African American) 81.9 ml/min; Est GFR (Non-African American) 70.7 ml/min; Magnesium 1.5 mg/dl (1.7-2.4); Phosphorus 3.3 mg/dl (2.5-4.9); Potassium 4.3 mmol/L (3.5-5.1)
[2021-11-20 06:55] LABS: Basophils # (auto) 0.01 K/uL (0-0.2); Basophils % (auto) 0.1 %; Eosinophils # (auto) 0.02 K/uL (0-0.50); Eosinophils % (auto) 0.2 %; Immature Granulocytes # (auto) 0.06 K/uL (0.00-0.02); Immature Granulocytes % (auto) 0.7 %; Lymphocytes # (auto) 0.44 K/uL (1.2-3.4); Monocytes # (auto) 0.34 K/uL (0.24-0.82); Monocytes % (auto) 3.8 %; Neutrophils # (auto) 8.01 K/uL (1.4-6.5); Neutrophils % (auto) 90.2 %
[2021-11-20] MEDS ORDERED: MAGNESIUM SULFATE / D5W 1 GM/100 ML BAG IV ONE (07:24)
--- NOTE | 2021-11-20 07:26 | Hospitalist Progress Note ---
Date of Service November 20, 2021 Assessment & Plan Admission and Anticipated Discharge Date Admission Date: November 19, 2021 Subjective Patient seen in follow-up of shortness of breath, in the setting of diffuse larg e B cell lymphoma Results & Data Results & Data ([facility]) Vital Signs (Past 12 Hours) Vital Signs Temp Pulse Pulse Resp BP Pulse Ox O2 Del Method 11/20/21 02:57 36.5 C 93 H 20 147/83 H 96 Nasal Cannula 11/20/21 01:20 98 H 11/20/21 01:00 Nasal Cannula 11/20/21 01:00 36.8 C 100 H 24 156/87 H Nasal Cannula 11/20/21 00:54 94 Nasal Cannula 11/19/21 23:24 134/82 11/19/21 23:01 101 H 27 H 159/89 H 99 Nasal Cannula 11/19/21 20:20 105 H 39 H 168/103 H 93 Nasal Cannula O2 Flow Rate 11/20/21 02:57 11/20/21 01:20 11/20/21 01:00 3.5 11/20/21 01:00 3.5 11/20/21 00:54 3 11/19/21 23:24 11/19/21 23:01 3 11/19/21 20:20 2 Laboratory Results 11/20/21 11/20/21 11/20/21 Range/Units 05:46 05:46 05:46 WBC 8.88 (4.8-10.8) K/ul RBC 4.05 (3.93-5.22) M/uL Hgb 11.4 L (12.0-16.0) g/dl Hct 34.4 (34.1-44.9) % MCV 84.9 (80.0-100.0) fL MCH 28.1 (25.0-34.0) pg MCHC 33.1 (32.0-36.0) g/dL RDW Std Deviation 45.5 (36.4-46.3) fL RDW Coeff of Darnell 15.0 H (11.5-14.5) % Plt Count 176 (130-400) K/uL MPV 10.9 (9.4-12.3) fL Immature Gran % (Auto) 0.7 % Neut % (Auto) 90.2 % Lymph % (Auto) 5.0 % Knott % (Auto) 3.8 % Eos % (Auto) 0.2 % Baso % (Auto) 0.1 % Neut # (Auto) 8.01 H (1.4-6.5) K/uL Lymph # (Auto) 0.44 L (1.2-3.4) K/uL Knott # (Auto) 0.34 (0.24-0.82) K/uL Eos # (Auto) 0.02 (0-0.50) K/uL Baso # (Auto) 0.01 (0-0.2) K/uL Immature Gran # (Auto) 0.06 H (0.00-0.02) K/uL PT (9.0-12.0) Seconds INR (0.9-1.1) APTT (21.0-31.0) Seconds PTT Ratio Sodium 136 (136-145) mmol/L Potassium 4.3 D (3.5-5.1) mmol/L Chloride 101 (98-107) mmol/L Carbon Dioxide 30 (21-32) mmol/L Anion Gap 5 (3-11) BUN 15 (6-23) mg/dl Creatinine 0.75 (0.6-1.2) mg/dl Est Cr Clr Drug Dosing 45.0 Est GFR ( Amer) 81.9 ml/min Est GFR (Non-Af Amer) 70.7 ml/min BUN/Creatinine Ratio 20.0 (10-20) Glucose 162 H (70-99(Fasting)) mg/dl Estimat Average Glucose Pending Hemoglobin A1c Pending Calcium 9.5 (8.5-10.1) mg/dl Phosphorus 3.3 (2.5-4.9) mg/dl Magnesium 1.5 L (1.7-2.4) mg/dl Total Bilirubin (0.2-1.0) mg/dl AST (13-39) U/L ALT (7-52) U/L Alkaline Phosphatase (34-104) U/L Troponin I High Sens (0-14) pg/ml B-Natriuretic Peptide (0-100) pg/ml Total Protein (6.0-8.3) gm/dl Albumin (3.4-5.0) gm/dl Globulin (2.5-4.0) gm/dl Albumin/Globulin Ratio (0.9-2) SARS-CoV-2, RNA, NAAT (NEGATIVE) 11/19/21 11/19/21 11/19/21 Range/Units 20:48 20:48 19:15 WBC (4.8-10.8) K/ul RBC (3.93-5.22) M/uL Hgb (12.0-16.0) g/dl Hct (34.1-44.9) % MCV (80.0-100.0) fL MCH (25.0-34.0) pg MCHC (32.0-36.0) g/dL RDW Std Deviation (36.4-46.3) fL RDW Coeff of Darnell (11.5-14.5) % Plt Count (130-400) K/uL MPV (9.4-12.3) fL Immature Gran % (Auto) % Neut % (Auto) % Lymph % (Auto) % Knott % (Auto) % Eos % (Auto) % Baso % (Auto) % Neut # (Auto) (1.4-6.5) K/uL Lymph # (Auto) (1.2-3.4) K/uL Knott # (Auto) (0.24-0.82) K/uL Eos # (Auto) (0-0.50) K/uL Baso # (Auto) (0-0.2) K/uL Immature Gran # (Auto) (0.00-0.02) K/uL PT (9.0-12.0) Seconds INR (0.9-1.1) APTT (21.0-31.0) Seconds PTT Ratio Sodium 137 (136-145) mmol/L Potassium 3.1 L (3.5-5.1) mmol/L Chloride 96 L (98-107) mmol/L Carbon Dioxide 31 (21-32) mmol/L Anion Gap 10 (3-11) BUN 18 (6-23) mg/dl Creatinine 0.84 (0.6-1.2) mg/dl Est Cr Clr Drug Dosing Not Reportable Est GFR ( Amer) 71.4 ml/min Est GFR (Non-Af Amer) 61.6 ml/min BUN/Creatinine Ratio 21.4 H (10-20) Glucose 178 H (70-99(Fasting)) mg/dl Estimat Average Glucose Hemoglobin A1c Calcium 11.3 H (8.5-10.1) mg/dl Phosphorus (2.5-4.9) mg/dl Magnesium 1.3 L (1.7-2.4) mg/dl Total Bilirubin 0.8 (0.2-1.0) mg/dl AST 21 (13-39) U/L ALT 10 (7-52) U/L Alkaline Phosphatase 121 H (34-104) U/L Troponin I High Sens 23.5 H (0-14) pg/ml B-Natriuretic Peptide 145 H (0-100) pg/ml Total Protein 6.6 (6.0-8.3) gm/dl Albumin 3.6 (3.4-5.0) gm/dl Globulin 3.0 (2.5-4.0) gm/dl Albumin/Globulin Ratio 1.2 (0.9-2) SARS-CoV-2, RNA, NAAT (NEGATIVE) 11/19/21 11/19/21 11/19/21 Range/Units 19:15 19:15 16:13 WBC 9.83 (4.8-10.8) K/ul RBC 4.79 (3.93-5.22) M/uL Hgb 13.4 (12.0-16.0) g/dl Hct 40.3 (34.1-44.9) % MCV 84.1 (80.0-100.0) fL MCH 28.0 (25.0-34.0) pg MCHC 33.3 (32.0-36.0) g/dL RDW Std Deviation 45.3 (36.4-46.3) fL RDW Coeff of Darnell 14.9 H (11.5-14.5) % Plt Count 208 (130-400) K/uL MPV 11.0 (9.4-12.3) fL Immature Gran % (Auto) 0.7 % Neut % (Auto) 77.7 % Lymph % (Auto) 9.8 % Knott % (Auto) 11.1 % Eos % (Auto) 0.6 % Baso % (Auto) 0.1 % Neut # (Auto) 7.64 H (1.4-6.5) K/uL Lymph # (Auto) 0.96 L (1.2-3.4) K/uL Knott # (Auto) 1.09 H (0.24-0.82) K/uL Eos # (Auto) 0.06 (0-0.50) K/uL Baso # (Auto) 0.01 (0-0.2) K/uL Immature Gran # (Auto) 0.07 H (0.00-0.02) K/uL PT 10.2 (9.0-12.0) Seconds INR 1.0 (0.9-1.1) APTT 22.5 (21.0-31.0) Seconds PTT Ratio 0.8 Sodium (136-145) mmol/L Potassium (3.5-5.1) mmol/L Chloride (98-107) mmol/L Carbon Dioxide (21-32) mmol/L Anion Gap (3-11) BUN (6-23) mg/dl Creatinine (0.6-1.2) mg/dl Est Cr Clr Drug Dosing Est GFR ( Amer) ml/min Est GFR (Non-Af Amer) ml/min BUN/Creatinine Ratio (10-20) Glucose (70-99(Fasting)) mg/dl Estimat Average Glucose Hemoglobin A1c Calcium (8.5-10.1) mg/dl Phosphorus (2.5-4.9) mg/dl Magnesium (1.7-2.4) mg/dl Total Bilirubin (0.2-1.0) mg/dl AST (13-39) U/L ALT (7-52) U/L Alkaline Phosphatase (34-104) U/L Troponin I High Sens (0-14) pg/ml B-Natriuretic Peptide (0-100) pg/ml Total Protein (6.0-8.3) gm/dl Albumin (3.4-5.0) gm/dl Globulin (2.5-4.0) gm/dl Albumin/Globulin Ratio (0.9-2) SARS-CoV-2, RNA, NAAT NEGATIVE (NEGATIVE) Medications Administered Current Inpatient Medications Acetaminophen (Acetaminophen 325 Mg Tab) 650 mg PO Q4H PRN PRN Reason: Pain or Fever Stop: 12/20/21 01:12 Last Admin: 11/20/21 02:41 Dose: 650 mg Alprazolam (Alprazolam 0.25 Mg Tablet) 0.25 mg PO HS JAMIE Stop: 12/20/21 01:12 Last Admin: 11/20/21 02:41 Dose: 0.25 mg Aspirin (Aspirin 81 Mg Ectab) 81 mg PO DAILY [facility] Stop: 12/20/21 08:59 Enoxaparin Sodium (Enoxaparin Inj 40 Mg/0.4 Ml Syr) 40 mg SQ Q24H [facility] Stop: 12/20/21 08:59 Sodium Chloride (Nss 1000ml) 1,000 mls @ 150 mls/hr IV .Q6H40M [facility] Stop: 12/20/21 01:12 Last Admin: 11/20/21 02:41 Dose: 150 mls/hr Magnesium Sulfate/Dextrose (Magnesium Sulfate / D5w) 1 gm in 100 mls @ 50 mls/hr IV ONE ONE Stop: 11/20/21 09:23 Labetalol HCl (Labetalol Hcl Iv 5 Mg/Ml 20ml) 10 mg IV Q4H PRN PRN Reason: Hypertension Stop: 12/20/21 01:12 Levalbuterol HCl (Levalbuterol Hcl 1.25 Mg/3 Ml Neb) 1.25 mg NEB Q4H PRN; Protocol PRN Reason: Shortness Of Breath Or Wheezing Stop: 12/20/21 01:49 Multivitamins/Minerals (Calcium 600mg + Vit D 400 Iu Tab) 1 tab PO DAILY [facility] Stop: 12/20/21 08:59 Nitroglycerin (Nitroglycerin Sl 0.4 Mg/Tab Tab) 0.4 mg SL UD PRN PRN Reason: Chest Pain Stop: 12/20/21 01:12 Ondansetron HCl (Ondansetron Inj 2 Mg/Ml 2 Ml Vial) 4 mg IV Q6H PRN PRN Reason: Nausea Stop: 12/20/21 01:12 Polyethylene Glycol (Polyethylene (Miralax) 17 Gm Pack) 17 gm PO DAILY PRN PRN Reason: Constipation Stop: 12/20/21 01:12 Vitamin D (Cholecalciferol 1,000 Units 25 Mcg Tab) 2,000 units PO [id number] [facility] Stop: 12/21/21 08:59
[2021-11-20 08:02] LABS: Estimated Average Glucose 123 mg/dl; Hemoglobin A1C 5.9 % (4.5-5.6)
[2021-11-20] MEDS: ENOXAPARIN INJ 40 MG/0.4 ML SYR SQ SCH (08:10)
[2021-11-20] MEDS: ASPIRIN 81 MG ECTAB PO SCH (08:10)
[2021-11-20] MEDS: CALCIUM 600MG + VIT D 400 IU TAB PO SCH (08:10)
[2021-11-20] MEDS: MAGNESIUM SULFATE / D5W 1 GM/100 ML BAG IV SCH ×2 (09:53→12:07)
--- NOTE | 2021-11-20 13:46 | Pulmonary Consultation ---
Date of Consultation November 20, 2021 Assessment & Plan (1) Metastatic cancer: Patient with likely metastatic lymphoma. Recommend discussion with the patient's oncologist given that the PET scans and CT scans have been all completed in the [facility] system. I do not think a bronchoscopy will alter the course of her prognosis. Nor do I think that she would tolerate a bronchoscopy at this time. I placed a consult to palliative care and discussed the case with the palliative care physician. The patient's daughter and the patient were receptive to discussing the potential of hospice and palliative care. I would be happy reconsidering pursuing a biopsy of the lung if that should alter her treatment course significantly. (2) Mass of lung: Some areas of necrosis noted in many of these lung masses, particularly in the left upper lobe. Consider the addition of antibiotics for possible necrotic pulmonary infection. (3) SOB (shortness of breath): Secondary to patient's advanced age, metastatic disease and deconditioning. (4) Hypoxia: Secondary to advanced metastatic disease to her lungs. Continue to maintain oxygen saturations of 88 to 92%. (5) Goals of care, counseling/discussion: Palliative care consult placed due to the patient's advanced disease and poor performance status. Patient is currently DNR/DNI. Plan Pulmonary will sign off at this time. Please call with questions. Thank you for allowing us to participate in the care of this patient. 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 She completed mini R-CHOP treatment in February 2021 per the hospitalist note. I do not have the images of old PET scans or CT scans to review. She did have a CT on arrival to the hospital this admission which revealed bilateral large pulmonary masses and the left upper lobe consolidation with areas of necrosis. These areas are presumed to be related to her lymphoma. Patient is accompanied by her daughter today who is at bedside. The daughter notes that the patient lives with her in her house and stays on 1 floor. She becomes very short of breath with walking 5 to 10 feet. Her mobility and activity level is very limited. Over the last 3 to 4 weeks she has had increasing shortness of breath. The patient has conversational dyspnea present. No fevers or chills. Allergies Allergy/AdvReac Type Severity Reaction Status Date / Time No Known Allergies Allergy Verified 11/19/21 22:13 Home Medications Medication Instructions Recorded Confirmed Type alendronate 70 mg tablet 70 mg PO WK 11/19/21 11/19/21 History alprazolam 0.5 mg tablet 0.25 mg PO HS 11/19/21 11/19/21 History aspirin 81 mg tablet,delayed 81 mg PO DAILY 11/19/21 11/19/21 History release calcium carbonate 500 mg-vitamin 1 tab PO DAILY 11/19/21 11/19/21 History D3 5 mcg (200 unit) tablet (Calcium 500 + D) chlorthalidone 25 mg tablet 12.5 mg PO DAILY 11/19/21 11/19/21 History cholecalciferol (vitamin D3) 50 50 mcg PO Q2D 11/19/21 11/19/21 History mcg (2,000 unit) tablet polyethylene glycol 3350 17 17 g PO DAILY PRN Constipation 11/19/21 11/19/21 History gram/dose oral powder (Miralax) Patient History Medical History (Updated 11/20/21 @ 13:45 by Abner Pacheco MD) Goals of care, counseling/discussion Mass of lung Metastatic cancer Social History Smoking Status: Never smoker Hx Alcohol Use: No Hx Substance Use: No Preferred Language: Guinean Communication Ability: Effective Industrial Custodian Required: No Beliefs That Will Affect Care: None marital status: / Current Living Situation: Family Current Living Situation Comment: With daughter and son in law How many Children do You have: 4 Feels Safe at Home: Yes Safety Concerns: Feels Safe At This Time Assistive Devices: Cane and Walker Assistive Devices Comment: Pt does not need/use cane/walker but they are in the house. Review of Systems Review of Systems: All systems reviewed & are unremarkable except as noted in HPI & below Physical Exam Physical Exam: Constitutional: Elderly appearing female who is chronically ill. Eyes: Pupils are equal round and reactive to light. Conjunctivae are normal. Anicteric sclera. Ears nose, mouth and throat: Deferred. Neck: Trachea is midline. Visual inspection is normal. Respiratory: Increased work of breathing with conversational dyspnea. Rhonchi bilaterally. Cardiovascular: Regular rate and rhythm. No murmurs. No edema. Gastrointestinal: Normal bowel sounds, soft, nontender and nondistended. No hepatosplenomegaly noted. Musculoskeletal: No cyanosis. Patient is able to move all extremities. Skin: No rashes, warm dry and intact. Neurologic: No obvious focal neurological deficits seen. Psychiatric: Alert and oriented x3 with an anxious mood. Results & Data Results & Data ([facility]) Vital Signs (Past 12 Hours) Vital Signs Temp Pulse Pulse Resp BP Pulse Ox O2 Del Method 11/20/21 11:45 36.7 C 91 H 18 152/89 H 94 Nasal Cannula 11/20/21 08:05 36.4 C L 93 H 18 133/91 100 Nasal Cannula 11/20/21 02:57 36.5 C 93 H 20 147/83 H 96 Nasal Cannula O2 Flow Rate 11/20/21 11:45 3 11/20/21 08:05 3 11/20/21 02:57 PG Care Time/CCT Total # of Minutes Spent Total Time Spent with Patient: Total time spent is greater than 50% in coordination of care (as documented) at patient's floor/unit and/or counseling patient: Coding Level of Care Code 88255 Initial Inpt Care Lvl 3 Diagnoses Metastatic cancer C79.9 Mass of lung R91.8 SOB (shortness of breath) R06.02 Hypoxia R09.02 Goals of care, counseling/discussion Z71.89
--- NOTE | 2021-11-20 17:03 | Hospitalist Progress Note ---
Date of Service November 20, 2021 Assessment & Plan (1) Metastatic cancer: Plan 89-year-old lady with PMH of diffuse large B-cell lymphoma of multiple recent status post chemo, HLD, glucose intolerance, HTN, vitamin D deficiency, osteoporosis, plantar fasciitis presented 11/19 to our ED with complaint of shortness of breath. 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 She received 6 cycles of mini R-CHOP treatment, last cycle was given in February 2021. She had a recent PET scan done in [place] which showed lung involvement. She was saturating 87% on room air in the ED. She is being managed for the following: Acute hypoxemic respiratory failure, most likely from extensive metastatic lung disease: Patient saturating 87% on room air at presentation with tachypnea. History of diffuse large B-cell lymphoma: seems to be high-grade, status post chemo [see above] Patient had recent PET scan in the [facility] which showed lung involvement, and patient was supposed to follow-up with oncology on . Patient came into the ED 11/19 with complaint of shortness of breath. Was saturating 87% on room air, needed 2 L oxygen at presentation. Admitting CTA chest: No evidence of PE, suggestive of extensive/diffuse multifocal pulmonary metastatic disease. Complete atelectasis of the left upper lobe and a small left pleural effusion. LDH 396 and uric acid 7.6 Patient reports feeling comfortable on 2 to 3 L oxygen, denies any chest pain or sore throat or cough. Pulmonology on board, recs noted. WBC wnl, afebrile, will get procal Palliative care consulted, Dr Eason reached out, decadron 40 mg daily for 4 days to ease her breathing. Will use PPI Px BID for the same duration. Supplemental oxygen, titrate down as tolerated. Electrolyte abnormalities: Monitor and replete as appropriate. Hypercalcemia: Resolved with IV fluids Other chronic medical conditions: HTN, glucose intolerance Continue with/resume home meds as and when appropriate DVT prophylaxis: Lovenox DNR/DNI Disposition: Palliative care consulted, PT/OT, CM to assist with DC planning. Admission and Anticipated Discharge Date Admission Date: November 19, 2021 Subjective Patient seen and examined at bedside as a follow-up of shortness of breath most likely from extensive metastatic lung disease. Of note, patient has history of diffuse large B-cell lymphoma high-grade status post chemo. Patient was lying in bed, on 3 L nasal cannula oxygen, NAD, no new acute events overnight. Patient reports eating okay and moving bowels okay. Patient reports sensation of some shortness of breath but is saturating okay. Patient denies headache/dizziness/cough/chest pain/sore throat/palpitation/belly pain/acute changes in bowel or bladder habits/other review of symptoms. Physical Exam Physical Exam: GENERAL: Alert and oriented x3. NAD, on 3L NC O2 HEENT: No pallor, no icterus. Pupils equal, round and reactive to light. Oral mucosa moist. NECK: No JVD, no neck masses. HEART: S1 and S2 heard. Regular rate and rhythm. Systolic murmur at Aortic > Pulmonic area, no gallop. RESPIRATORY SYSTEM: Normal AP diameter. No accessory muscle use. No wheezing, no crackles. ABDOMEN: Soft, bowel sounds present, nontender, no distention. CENTRAL NERVOUS SYSTEM: No facial droop. Speech is clear. Obeys simple commands. Moves extremities. EXTREMITIES: Trace BLE edema, no erythema seen. Results & Data Results & Data ([facility]) Vital Signs (Past 12 Hours) Vital Signs Temp Pulse Pulse Resp BP Pulse Ox O2 Del Method 11/20/21 15:55 36.6 C 89 20 173/106 H 95 Nasal Cannula 11/20/21 08:00 Nasal Cannula 11/20/21 11:45 36.7 C 91 H 18 152/89 H 94 Nasal Cannula 11/20/21 08:05 36.4 C L 93 H 18 133/91 100 Nasal Cannula O2 Flow Rate 11/20/21 15:55 3 11/20/21 08:00 3 11/20/21 11:45 3 11/20/21 08:05 3
--- NOTE | 2021-11-20 17:08 | Electrocardiogram Report ---
Test Reason : Blood Pressure : / mmHG Vent. Rate : 103 BPM Atrial Rate : 103 BPM P-R Int : 156 ms QRS Dur : 094 ms QT Int : 398 ms P-R-T Axes : 048 011 054 degrees QTc Int : 521 ms Sinus tachycardia Left atrial enlargement Possible Lateral infarct , age undetermined Abnormal ECG When compared with ECG of 27-OCT-2016 22:45, Significant changes have occurred Confirmed by Thad Sierra ([id number]) on 11/20/2021 5:07:47 PM Referred By: REFERRED SELF Confirmed By:Thad Sierra
[2021-11-20] MEDS: LEVALBUTEROL HCL 1.25 MG/3 ML NEB NEB PRN ×2 (18:22→22:16)
[2021-11-20] MEDS: CEFEPIME 2,000 MG in SYRINGE 0 ML IV SCH (19:33)
[2021-11-20] MEDS: PANTOprazole 40 MG TAB PO SCH (20:53)
[2021-11-21 06:32] LABS: Hematocrit (blood only) 33.1 % (34.1-44.9); Hemoglobin 10.8 g/dl (12.0-16.0); Mean Corpuscular Hemoglobin 27.6 pg (25.0-34.0); Mean Corpuscular Hgb Conc 32.6 g/dL (32.0-36.0); Mean Corpuscular Volume 84.4 fL (80.0-100.0); Mean Platelet Volume 10.8 fL (9.4-12.3); Platelet Count 177 K/uL (130-400); RDW Coefficient of Variation 15.1 % (11.5-14.5); RDW Standard Deviation 46.3 fL (36.4-46.3); Red Blood Count 3.92 M/uL (3.93-5.22); White Blood Count 9.12 K/ul (4.8-10.8)
[2021-11-21] MEDS: CEFEPIME 2,000 MG in SYRINGE 0 ML IV SCH ×2 (06:35→18:34)
[2021-11-21 06:55] LABS: Creatinine Clr Calc Pharmacy 59.2 ml/min; Est GFR (African American) 94.7 ml/min; Est GFR (Non-African American) 81.7 ml/min; Magnesium 1.4 mg/dl (1.7-2.4); Phosphorus 2.8 mg/dl (2.5-4.9); Potassium 3.3 mmol/L (3.5-5.1)
[2021-11-21] MEDS: LEVALBUTEROL HCL 1.25 MG/3 ML NEB NEB PRN ×4 (07:20→22:28)
[2021-11-21] MEDS ORDERED: FUROSEMIDE INJ 20 MG/2 ML VIAL IV ONE (07:42)
[2021-11-21] MEDS ORDERED: POTASSIUM CHLORIDE CRTAB 20 MEQ TABCR PO STA (08:18)
[2021-11-21] MEDS: ASPIRIN 81 MG ECTAB PO SCH (08:47)
[2021-11-21] MEDS: ENOXAPARIN INJ 40 MG/0.4 ML SYR SQ SCH (08:47)
[2021-11-21] MEDS: CALCIUM 600MG + VIT D 400 IU TAB PO SCH (08:47)
[2021-11-21] MEDS: CHOLECALCIFEROL 1,000 UNITS 25 MCG TAB PO SCH (08:47)
[2021-11-21] MEDS: PANTOprazole 40 MG TAB PO SCH ×2 (08:48→20:30)
[2021-11-21] MEDS ORDERED: dexAMETHasone 40 MG in DEXTROSE 5% 25 ML IV SCH (09:00)
[2021-11-21] MEDS: SODIUM CHLORIDE 0.9% 1000ML 1,000 ML IV SCH (09:18)
[2021-11-21] MEDS: MAGNESIUM SULFATE / D5W 1 GM/100 ML BAG IV SCH ×3 (10:05→16:24)
[2021-11-21] MEDS: LABETALOL HCL IV 5 MG/ML 20ML IV PRN ×2 (12:35→20:00)
--- NOTE | 2021-11-21 18:19 | Hospitalist Progress Note ---
Date of Service November 21, 2021 Assessment & Plan (1) Metastatic cancer: Plan 89-year-old lady with PMH of diffuse large B-cell lymphoma of multiple recent status post chemo, HLD, glucose intolerance, HTN, vitamin D deficiency, osteoporosis, plantar fasciitis presented 11/19 to our ED with complaint of shortness of breath. 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 She received 6 cycles of mini R-CHOP treatment, last cycle was given in February 2021. She had a recent PET scan done in [place] which showed lung involvement. She was saturating 87% on room air in the ED. She is being managed for the following: Acute hypoxemic respiratory failure, most likely from extensive metastatic lung disease: Patient saturating 87% on room air at presentation with tachypnea. History of diffuse large B-cell lymphoma: seems to be high-grade, status post chemo [see above] Patient had recent PET scan in the [facility] which showed lung involvement, and patient was supposed to follow-up with oncology on . Patient came into the ED 11/19 with complaint of shortness of breath. Was saturating 87% on room air, needed 2 L oxygen at presentation. Admitting CTA chest: No evidence of PE, suggestive of extensive/diffuse multifocal pulmonary metastatic disease. Complete atelectasis of the left upper lobe and a small left pleural effusion. LDH 396 and uric acid 7.6 Patient requires 4L O2 today, denies any chest pain or sore throat or cough. Pulmonology on board, recs noted. Pt started on cefepime 11/20 for possible necrotic pulmonary infection. WBC wnl, afebrile, Palliative care consulted, Dr Eason reached out 11/20, decadron 40 mg daily for 4 days to ease her breathing. Will use PPI Px BID for the same duration. Supplemental oxygen, titrate down as tolerated. Electrolyte abnormalities: Monitor and replete as appropriate. Hypercalcemia: Resolved with IV fluids Other chronic medical conditions: HTN, glucose intolerance Continue with/resume home meds as and when appropriate DVT prophylaxis: Lovenox DNR/DNI Disposition: Palliative care consulted, PT/OT, CM to assist with DC planning. Will need 2 step prior to DC. Prognosis Guarded. Pt's dtr updated at bedside 11/21. Admission and Anticipated Discharge Date Admission Date: November 19, 2021 Subjective Patient seen and examined at bedside as a follow-up of shortness of breath most likely from extensive metastatic lung disease. Of note, patient has history of diffuse large B-cell lymphoma high-grade status post chemo. Patient was lying in bed, on 4 L nasal cannula oxygen, NAD, no new acute events overnight but in the morning patient had shortness of breath and some crackles which improved after nebulization and small dose of IV Lasix. IV fluid has been stopped. Apparently patient has very poor appetite but minimally improved. Patient denies headache/dizziness/cough/chest pain/sore throat/palpitation/belly pain/acute changes in bowel or bladder habits/other review of symptoms. Physical Exam Physical Exam: GENERAL: Alert and oriented x3. NAD, on 4L NC O2 HEENT: No pallor, no icterus. Pupils equal, round and reactive to light. Oral mucosa moist. NECK: No JVD, no neck masses. HEART: S1 and S2 heard. Regular rate and rhythm. Systolic murmur at Aortic > Pulmonic area, no gallop. RESPIRATORY SYSTEM: Normal AP diameter. No accessory muscle use. No wheezing, no crackles. Decreased breath sounds b/l ABDOMEN: Soft, bowel sounds present, nontender, no distention. CENTRAL NERVOUS SYSTEM: No facial droop. Speech is clear. Obeys simple commands. Moves extremities. EXTREMITIES: Trace BLE edema, no erythema seen. Results & Data Results & Data ([facility]) Vital Signs (Past 12 Hours) Vital Signs Temp Pulse Pulse Pulse Resp BP BP 11/21/21 16:10 75 11/21/21 15:45 36.4 C L 86 16 164/102 H 11/21/21 13:05 123/77 11/21/21 08:00 78 11/21/21 12:46 78 18 11/21/21 12:16 94 H 183/94 H 11/21/21 11:22 36.4 C L 91 H 24 189/98 H 11/21/21 08:01 11/21/21 07:57 36.5 C 94 H 24 168/96 H 11/21/21 07:21 98 H 16 Pulse Ox O2 Del Method O2 Flow Rate 11/21/21 16:10 11/21/21 15:45 91 Nasal Cannula 4 11/21/21 13:05 11/21/21 08:00 11/21/21 12:46 95 Nasal Cannula 4 11/21/21 12:16 11/21/21 11:22 96 Nasal Cannula 4 11/21/21 08:01 Nasal Cannula 4.5 11/21/21 07:57 95 Nasal Cannula 4 11/21/21 07:21 95 Nasal Cannula 4
[2021-11-21] MEDS: ALPRAZolam 0.25 MG TABLET PO SCH (20:30)
[2021-11-22] MEDS: LEVALBUTEROL HCL 1.25 MG/3 ML NEB NEB PRN ×5 (02:21→23:10)
[2021-11-22] MEDS: CEFEPIME 2,000 MG in SYRINGE 0 ML IV SCH ×3 (06:08→22:29)
[2021-11-22 06:43] LABS: Hematocrit (blood only) 31.7 % (34.1-44.9); Hemoglobin 10.5 g/dl (12.0-16.0); Mean Corpuscular Hemoglobin 27.4 pg (25.0-34.0); Mean Corpuscular Hgb Conc 33.1 g/dL (32.0-36.0); Mean Corpuscular Volume 82.8 fL (80.0-100.0); Mean Platelet Volume 10.8 fL (9.4-12.3); Platelet Count 216 K/uL (130-400); RDW Standard Deviation 45.1 fL (36.4-46.3); Red Blood Count 3.83 M/uL (3.93-5.22); White Blood Count 11.21 K/ul (4.8-10.8)
[2021-11-22 07:07] LABS: BUN Creatinine Ratio 21.8 (10-20); Creatinine Clr Calc Pharmacy 62.4 ml/min; Est GFR (African American) 96.4 ml/min; Est GFR (Non-African American) 83.2 ml/min; Magnesium 1.7 mg/dl (1.7-2.4); Phosphorus 2.5 mg/dl (2.5-4.9); Potassium 3.9 mmol/L (3.5-5.1)
[2021-11-22] MEDS: PANTOprazole 40 MG TAB PO SCH ×2 (08:40→20:38)
[2021-11-22] MEDS: ASPIRIN 81 MG ECTAB PO SCH (08:40)
[2021-11-22] MEDS: CALCIUM 600MG + VIT D 400 IU TAB PO SCH (08:40)
[2021-11-22] MEDS: ENOXAPARIN INJ 40 MG/0.4 ML SYR SQ SCH (08:41)
[2021-11-22] MEDS: CHLORTHALIDONE 25 MG TAB PO SCH (11:00)
--- NOTE | 2021-11-22 12:03 | Hospitalist Progress Note ---
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 She received 6 cycles of mini R-CHOP treatment, last cycle was given in February 2021. She had a recent PET scan done in [place] which showed lung involvement. She was saturating 87% on room air in the ED. She is being managed for the following: Acute hypoxemic respiratory failure, most likely from extensive metastatic lung disease: Patient saturating 87% on room air at presentation with tachypnea. History of diffuse large B-cell lymphoma: seems to be high-grade, status post chemo see above Patient had recent PET scan in the [facility] which showed lung involvement, and patient was supposed to follow-up with oncology on . Patient came into the ED 11/19 with complaint of shortness of breath. Was saturating 87% on room air, needed 2 L oxygen at presentation. Admitting CTA chest: No evidence of PE, suggestive of extensive/diffuse multifocal pulmonary metastatic disease. Complete atelectasis of the left upper lobe and a small left pleural effusion. LDH 396 and uric acid 7.6 Patient requires 4L O2 today, denies any chest pain or sore throat or cough. Pulmonology on board, recs noted. Pt started on cefepime 11/20 for possible necrotic pulmonary infection. WBC wnl, afebrile, Palliative care consulted, Dr Eason reached out 11/20, decadron 40 mg daily for 4 days to ease her breathing. Will use PPI Px BID for the same duration. Supplemental oxygen, titrate down as tolerated. 11/22: now on 2 L NC states she feels better today received IV Lasix 20mg one dose yesterday continue Dexamethasone 40mg IV Day 3/[address] Eason- will discuss further Chemotherapy with patient as outpatient, recommend Radiation Onc evaluation Rad Onco consult placed- discussed with Dr. Eason continue Cefepime IV 2g IV q12h HTN elevated likely from Decadron on Chlorthalidone, PRN Labetalol monitor Leg Edema, BL Lasix 20mg IV today monitor closely Electrolyte abnormalities: Monitor and replete as appropriate. Hypercalcemia: Resolved with IV fluids Other chronic medical conditions: HTN, glucose intolerance resumed Chlorthalidone BSG 133-134 DVT prophylaxis: Lovenox DNR/DNI Disposition: Palliative care consulted, PT/OT, CM to assist with DC planning. Will need 2 step prior to DC. Prognosis Guarded. plan of care discussed with patient in detail and at length all questions answered she is understanding, agreeable, comfortable with the plan of care Admission and Anticipated Discharge Date Admission Date: November 19, 2021 Subjective ff up for acute hypoxic respiratory failure, lung mets, etc seen resting in bed, on 2 L NC sleeping but easily awakened states she feels much better compared to previous days still has some dyspnea, mostly with inspiration no cough, sputum, hemoptysis, chest pain no abdominal pain, nausea/vomiting no other symptoms Review of Systems Review of Systems: all noted and negative except for above Physical Exam Physical Exam: General- oriented x 3, not in distress, speaks in sentences with no effort or accessory muscle use Head- atraumatic Eyes- PERRL, EOMI, anicteric ENT- oropharynx clear Neck- supple, no JVD, no adenopathy, no thyromegaly; carotids +2/2, no bruits appreciated Lungs- somewhat diminished but clear to auscultation bilaterally, no rales/wheezes Heart- normal rate, regular rhythm; no murmur, no gallop, no rub appreciated Abdomen- normal bowel sounds, nondistended, soft, nontender, no masses or hepatosplenomegaly Extremities-grade 1 lower leg edema, no calf tenderness; peripheral pulses intact Neuro- alert, oriented x 3; CN 2-12 grossly intact; motor 5/5 bilaterally;sensation 100% on all extremities; no other gross focal neurologic deficits Skin- warm & dry Results & Data Results & Data ([facility]) Vital Signs (Past 12 Hours) Vital Signs Temp Pulse Pulse Pulse Resp BP BP 11/22/21 11:05 36.4 C L 80 22 145/81 H 11/22/21 08:00 11/22/21 07:35 36.5 C 84 24 147/76 H 11/22/21 07:14 86 11/22/21 07:10 86 16 07/21/22 02:22 85 15 11/22/21 01:00 11/22/21 02:13 36.6 C 81 18 144/82 H Pulse Ox Pulse Ox O2 Del Method O2 Del Method O2 Flow Rate O2 Flow Rate 11/22/21 11:05 94 Nasal Cannula 2 11/22/21 08:00 Nasal Cannula 2 11/22/21 07:35 92 Nasal Cannula 2 11/22/21 07:14 11/22/21 07:10 92 Nasal Cannula 2 11/22/21 02:22 94 Nasal Cannula 2 11/22/21 01:00 91 Nasal Cannula 2 11/22/21 02:13 91 Nasal Cannula 2 all noted and reviewed including below
--- NOTE | 2021-11-22 13:45 | Palliative Care Consultation ---
Date of Consultation November 22, 2021 Assessment & Plan (1) Dyspnea: With pulmonary metastatic disease. Symptoms improved. (2) Palliative care encounter: I talked with Mrs. Gillette about her understanding of her illness. She tells me that she is not aware of the PET results but does know that she has cancer in her lungs. She expressed concern about having further chemotherapy. "I just got my hair back". She did not have much problem with symptoms during her prior treatment. She is meeting with Dr. Hand to discuss whether radiation therapy may be an option. She has an appointment to see Dr. Eason as an outpatient on 11/26. I asked her if she had worries about her cancer. She told me that "what will be, will be". She mentioned that she is ready to go and be with her who 4 years ago. She denies fears or worries about her dying time. She told me that it is very important to her that her son who lives in [place] be here at her dying time. She asked me about prognosis. I told her that there is some uncertainty about that as she considers further treatment but with metastatic disease and effusions, her prognosis is likely months at best. We talked about how she felt about further treatment. She realizes that this is not curative but if she tolerated it as well as she did her prior treatment, she feels that she would want to at least try. I assured her that she was able to stop treatment at any time if she felt that the burden outweighed the benefit. She does tell me that she would not want resuscitation or to be kept alive on machines. She has designated her daugher, Paige Sunshine, as her surrogate decision maker. I spoke with Paige on the phone. She tells me that this discussion is consistent with what her mother has said in the past. They are anxious to talk with Dr. Eason about what the potential options would be for treatment. I also mentioned to Paige that Jovana may benefit from seeing Dr. Loredo as an outpatient to continue goals of care discussion and support after discharge. History of Present Illness Reason for Consultation: goals of care Requesting Physician: Dr. Pacheco Attending Physician: Surinder Packer MD History of Present Illness 89 yo lady who was diagnosed with B cell lymphoma in August of last year after finding a lump on her left neck. She is followed by Dr. Eason and completed six cycles of mini R-CHOP until February 2021. She had been having increased shortness of breath at home and presented to ER. CT done on admission shows diffuse pulmonary metastatic disease, complete atelectasis of RAGHU and small left pleural effusion. She had been having increased weakness and poor appetite at home. She lives with her daughter, Paige, and son in law. She has had some improvement with diuresis and steroids and is now on 2L with no complaint of dyspnea. She is sitting in the chair at bedside. She denies pain or nausea. Allergies Allergy/AdvReac Type Severity Reaction Status Date / Time No Known Allergies Allergy Verified 11/19/21 22:13 Home Medications Medication Instructions Recorded Confirmed Type alendronate 70 mg tablet 70 mg PO WK 11/19/21 11/19/21 History alprazolam 0.5 mg tablet 0.25 mg PO HS 11/19/21 11/19/21 History aspirin 81 mg tablet,delayed 81 mg PO DAILY 11/19/21 11/19/21 History release calcium carbonate 500 mg-vitamin 1 tab PO DAILY 11/19/21 11/19/21 History D3 5 mcg (200 unit) tablet (Calcium 500 + D) chlorthalidone 25 mg tablet 12.5 mg PO DAILY 11/19/21 11/19/21 History cholecalciferol (vitamin D3) 50 50 mcg PO Q2D 11/19/21 11/19/21 History mcg (2,000 unit) tablet polyethylene glycol 3350 17 17 g PO DAILY PRN Constipation 11/19/21 11/19/21 History gram/dose oral powder (Miralax) Patient History Medical History Goals of care, counseling/discussion Mass of lung Metastatic cancer Social History Smoking Status: Never smoker Hx Alcohol Use: No Hx Substance Use: No Preferred Language: Bahraini Communication Ability: Effective Survey Research Teacher Required: No Beliefs That Will Affect Care: None marital status: / Current Living Situation: Family Current Living Situation Comment: With daughter and son in law How many Children do You have: 4 Feels Safe at Home: Yes Safety Concerns: Feels Safe At This Time Assistive Devices: Cane and Walker Assistive Devices Comment: Pt does not need/use cane/walker but they are in the house. Review of Systems Review of Systems: ESAS Pain 0/3 Dyspnea 1/3 Fatigue 2/3 Nausea 0/3 Anxiety 0/3 Anorexia 1/3 Drowsiness 0/3 PPS 50% Physical Exam Constitutional: no acute distress Respiratory: normal respiratory effort; no labored breathing Musculoskeletal: Extremities: extremities normal to inspection Skin: warm and dry Neurologic: Speech / Cognition: normal cognition does have some difficulty recalling events over the weekend Psychiatric: Orientation: oriented x 3 Results & Data ([facility]) Vital Signs (Past 12 Hours) Vital Signs Temp Pulse Pulse Pulse Resp BP BP 11/22/21 11:05 97.5 F L 80 22 145/81 H 11/22/21 08:00 11/22/21 07:35 97.7 F 84 24 147/76 H 11/22/21 07:14 86 11/22/21 07:10 86 16 11/22/21 02:22 85 15 11/22/21 02:13 97.9 F 81 18 144/82 H Pulse Ox O2 Del Method O2 Flow Rate 11/22/21 11:05 94 Nasal Cannula 2 11/22/21 08:00 Nasal Cannula 2 11/22/21 07:35 92 Nasal Cannula 2 11/22/21 07:14 11/22/21 07:10 92 Nasal Cannula 2 11/22/21 02:22 94 Nasal Cannula 2 11/22/21 02:13 91 Nasal Cannula 2 PG Care Time/CCT Total # of Minutes Spent Total Time Spent: 55 Total Time Spent with Patient: Total time spent is greater than 50% in coordination of care (as documented) at patient's floor/unit and/or counseling patient: goals of care, code status, surrogate decision maker, prognosis, patient and family education and support Coding Level of Care Code 40736 Initial Inpt Care Lvl 2 Diagnoses Dyspnea R06.00 Palliative care encounter Z51.5
--- NOTE | 2021-11-22 14:00 | Radiation OncologyConsultation ---
Date of Consultation November 22, 2021 Assessment & Plan (1) Diffuse large B-cell lymphoma: Assessment: 89-year-old female who presented in August of last year with diffuse large B-cell lymphoma with a large left base of tongue mass, neck and chest adenopathy. She ultimately was treated with 6 cycles of mini R-CHOP completing on February 02, 2021 which she tolerated well. Follow-up scans showed complete response with Deauville 1 findings. Patient was subsequently followed and in October of this year was noted to have recurrent pulmonary masses which ultimately led to her presenting to the emergency department with shortness of breath hypoxia. She initially required 4 L of oxygen. This was subsequently's decreased to 2 L and treatment with high-dose steroids with improvement in the patient's status. Scans showed multiple large pulmonary nodules in both lungs with left upper lobe atelectasis. The scan showed over [address] scan continues to show no evidence of dissemination. Treatment Options: 1. Systemic chemotherapy 2. Local radiation to the left upper lung. 3. Observation. Recommendations: Reinitiation of systemic chemotherapy in light of the significant pulmonary recurrence. Plan: 1. I will discussed the case with Dr. Eason. 2. I see no significant role for palliative radiation at this time though that may change based on patient's status 3. Patient is scheduled to see Dr. Eason as an outpatient this coming Friday. Rationale/Explanation of Treatment: The patient has over 20 pulmonary nodules which are causing significant pulmonary symptoms. There is obvious evidence of obstruction of the left upper lobe bronchus causing atelectasis. She was admitted with significant shortness of breath and hypoxia. This has since improved from requiring 4 L of oxygen to 2 L of oxygen following initiation of dexamethasone 40 mg IV daily for 3 of planned 4 days. I reviewed her latest scan with radiology. She has multiple large pulmonary lesions. The left upper lobe lesion is obstructing the left upper lobe bronchus causing atelectasis. This is undoubtedly part of the components increasing her shortness of breath and hypoxia. It is theoretically possible to treat this area with a rapid course of palliative radiation with some potential improvement. This however would not address the vast majority of her pulmonary disease. That would only be addressed with the reassumption of systemic chemotherapy. The patient has a appointment with Dr. Eason this Friday assuming she will be discharged at that time. I will contact Dr. Jenaro to discuss the potential role of limited radiation to see if he thinks this would at all benefit the patient or might adjust delaying the initiation of her much-needed systemic chemotherapy. The patient had multiple questions which were answered to her full satisfaction. Thank you for allowing us to participate in the care of this patient. This chart was completed in part utilizing [employer] Speech Voice Recognition software. Grammatical errors, random word insertions, pronoun errors and incomplete sentences are occasional consequence of this system due to software limitations, ambient noise and hardware issues. Any formal questions or concerns about the content, text or information contained within the body of this dictation should be directly addressed to the provider for clarification. Chu Hand MD Department of Radiation Oncology [facility] History of Present Illness Reason for Consultation: Potential role for radiation oncology treatments. Attending Physician: Surinder Packer MD History of Present Illness Ms. Gillette is an 89-year-old female who was diagnosed with a non-Hodgkin's lymphoma who recently presented to the emergency department with increasing shortness of breath. 08/22/2020. Patient presented with a lump in the left side of her neck after receiving the second dose of COVID-19 vaccine. Patient also noted increasing difficulty in swallowing for the prior 2 months and change in her voice. She underwent an ultrasound of the neck which revealed an enlarged left cervical lymph node measuring 2.1 x 1.4 x 1.6 cm in the superior cervical lymph node measuring 1.5 x 1.2 x 1.6 cm. 09/18/2020. Patient undergoes CT of the neck which confirmed a 3.3 x 1.8 cm left tongue base mass with extensive invasion of the epiglottis and retropharyngeal spaces left greater than right. This was consistent with a malignancy. Biopsies were recommended. Multiple left neck lymphadenopathy larger than 1 cm and a 0.5 cm pulmonary nodules particularly in the right upper lobe are suspicious for metastatic disease. Staging PET CT scan performed. This showed metabolically active mass centered in the left base of tongue with local regional mendoza metastasis at the left cervical levels 2 and 3. Metabolically active foci in bilateral retropharyngeal space could represent additional mendoza metastasis. 8.9 cm metabolically active pulmonary nodule in the anterior right upper lobe is suspicious for distant mets. A few additional tiny nodules in the left lower lobe are below PET resolution and therefore indeterminate. Patient undergoes FNA and subsequent core biopsy. Pathology confirmed lymphoma with partially necrotic tissue. The cells are positive for CD79 and PAX5 and lack CD5, T DT, CD34, CD43 and EBV. Ki-67 is 90% with partial/subset expression of PAX5, BCL6, Bcl-2 and MUM1. These are highly suspicious for large cell lymphoma 10/05/2020. Patient undergoes core needle biopsy showing an aggressive (large) B- cell lymphoma (non-germinal center like subtype) consistent with a high-grade large B-cell lymphoma. FISH did not detect BL 6 rearrangement, MYC rearrangement, Bcl-2 rearrangement. Patient was started on mini R-CHOP. 12/20/2020. Patient completed 3 cycles of mini R-CHOP. Repeat PET CT scan showed no abnormal FDG activity present to suggest active lymphoma and was given a Deauville classification 1. The previous large mass at the left base of the tongue and left cervical lymphadenopathy at all resolved. Patient completed 6 cycles of mini R-CHOP with good tolerance. February 2021. Patient completes her 6 cycles of mini R-CHOP. She tolerated chemotherapy well with complete disappearance of disease. She remains at high risk for recurrence. 09/28/2021. Patient is seen by Kelley PONCE. Patient complained of onset of cough for about a month COVID was ruled out. She recommended to surveillance CT of the chest abdomen and pelvis and neck and to return for follow-up with Dr. Eason in 4 months. 10/18/2021. CT of the neck with and without contrast was performed. This showed interval appearance of multiple masses in the visualized bilateral upper lobes highly concerning for progressive lymphoma. CT scan is recommended for further evaluation. Patient undergoes CT of the chest abdomen and pelvis with contrast IV and oral. This shows interval development of multiple bilateral pulmonary nodules and masses in the lungs with the largest on the right upper lobe measuring 4.8 x 3.9 cm. A confluent mass is noted in the left upper lobe extending into the hilum measuring 6.7 x 10.5 cm. There is a stable left adrenal nodule measuring 2.1 x 2.6 cm compatible with adenoma. There were no evidence of metastasis in the abdomen or pelvis. 11/16/2021. Patient undergoes restaging PET CT scan. This showed an increase in the size and number of intensely hypermetabolic pulmonary nodules/masses with diffuse involvement of the left upper lobe with activity up to 44.7 SUV. There was no metabolically active hilar, axillary or mediastinal adenopathy. In the abdomen and pelvis there was low-level activity associated with left adrenal adenoma but no metabolically active abdominal or pelvic lymphadenopathy. No abnormal bony findings appreciated and no abnormal head neck findings. Considering the intense activity and patient history they favor lymphomatous involvement Deauville 5. 11/19/2021. Patient presents to the emergency department with complaint of hypoxia, shortness of breath, hypomagnesemia, hyperkalemia, metastatic lung carcinoma and hypokalemia. CT angiogram of the chest was performed. This revealed complete atelectasis of the left upper lobe with a small left pleural effusion. There were large mass lesions seen throughout both lungs consistent with multifocal metastatic disease with greater than 20 lesions identified. The largest lesion in the right lobe is seen in the upper lobe measuring up to 6 cm. The largest lesion in the left lung measured 4 cm. Upper lobe lesions cannot be evaluated due to atelectasis. There was complete occlusion of the left upper lobe bronchus. There is no mediastinal lymphadenopathy. The left hilum is partially obscured but no hilar adenopathy is clearly identified. No axillary adenopathy noted. A 2.2 cm left adrenal nodule is stable dating back to 2012. Skeletal structures are osteopenic with no lytic or blastic lesions noted. A stable 11 mm sclerotic focus in the left humeral head is unchanged since 2012. 11/20/2021. Dr. Eason recommended Decadron 40 mg daily for 4 days to ease her breathing. Clinically this has helped the patient. 11/22/2021. Patient seen by palliative care, Dr. Bañuelos. 11/22/2021. Patient seen by radiation oncology for evaluation of potential role of radiation as palliation. This chart was completed in part utilizing [employer] Speech Voice Recognition software. Grammatical errors, random word insertions, pronoun errors and incomplete sentences are occasional consequence of this system due to software limitations, ambient noise and hardware issues. Any formal questions or concerns about the content, text or information contained within the body of this dictation should be directly addressed to the provider for clarification. Chu Hand MD Department of Radiation Oncology [facility] Irina Hester [facility] Allergies Allergy/AdvReac Type Severity Reaction Status Date / Time No Known Allergies Allergy Verified 11/19/21 22:13 Home Medications Medication Instructions Recorded Confirmed Type alendronate 70 mg tablet 70 mg PO WK 11/19/21 11/19/21 History alprazolam 0.5 mg tablet 0.25 mg PO HS 11/19/21 11/19/21 History aspirin 81 mg tablet,delayed 81 mg PO DAILY 11/19/21 11/19/21 History release calcium carbonate 500 mg-vitamin 1 tab PO DAILY 11/19/21 11/19/21 History D3 5 mcg (200 unit) tablet (Calcium 500 + D) chlorthalidone 25 mg tablet 12.5 mg PO DAILY 11/19/21 11/19/21 History cholecalciferol (vitamin D3) 50 50 mcg PO Q2D 11/19/21 11/19/21 History mcg (2,000 unit) tablet polyethylene glycol 3350 17 17 g PO DAILY PRN Constipation 11/19/21 11/19/21 History gram/dose oral powder (Miralax) Patient History Medical History Goals of care, counseling/discussion Mass of lung Metastatic cancer Social History Smoking Status: Never smoker Hx Alcohol Use: No Hx Substance Use: No Preferred Language: Hungarian Communication Ability: Effective Strategic Account Director Required: No Beliefs That Will Affect Care: None marital status: / Current Living Situation: Family Current Living Situation Comment: With daughter and son in law How many Children do You have: 4 Feels Safe at Home: Yes Safety Concerns: Feels Safe At This Time Assistive Devices: Cane and Walker Assistive Devices Comment: Pt does not need/use cane/walker but they are in the house. Physical Exam Eyes: PERRL, conjunctivae normal, anicteric sclerae Neck: There is no palpable cervical or supraclavicular adenopathy. No thyroid enlargement is noted. No carotid bruits appreciated. Respiratory: There is mildly distant breath sounds but basically clear to auscultation without rales or wheezes appreciated. Cardiovascular: Regular rhythm without murmurs appreciated. Gastrointestinal (Abdomen): Soft nontender no masses or organomegaly. Musculoskeletal: Mild bilateral lower extremity edema appreciated. Skin: Warm and dry with no rashes. Neurologic: Patient is alert and oriented with no abnormal cranial nerve f indings no motor weakness or sensory changes appreciated. Psychiatric: A+Ox3, euthymic affect Results (Rad Onc) Laboratory Results: were reviewed and pertinent findings noted in HPI Pathology Results: were reviewed and pertinent findings noted in HPI Imaging Studies: were reviewed and pertinent findings noted in HPI Time Spent Attending This documentation has been prepared in full by Dr. Hand. I have personally reviewed the services described and have reviewed the documentation to ensure its accuracy. I spent 20 minutes with direct face to face interaction with the patient which included obtaining clinical information, recommending a plan of action and answering questions. I spent 20 minutes in discussion with referring physicians, review of scans with radiology and preparation of this document. SUSANA
[2021-11-22] MEDS: ALPRAZolam 0.25 MG TABLET PO SCH (20:38)
[2021-11-23] MEDS: LEVALBUTEROL HCL 1.25 MG/3 ML NEB NEB PRN ×5 (03:08→22:49)
[2021-11-23] MEDS: CEFEPIME 2,000 MG in SYRINGE 0 ML IV SCH ×3 (06:11→21:43)
[2021-11-23 06:30] LABS: Basophils # (auto) 0.01 K/uL (0-0.2); Basophils % (auto) 0.1 %; Eosinophils # (auto) 0.01 K/uL (0-0.50); Eosinophils % (auto) 0.1 %; Hematocrit (blood only) 31.1 % (34.1-44.9); Hemoglobin 10.5 g/dl (12.0-16.0); Immature Granulocytes # (auto) 0.09 K/uL (0.00-0.02); Immature Granulocytes % (auto) 0.8 %; Lymphocytes # (auto) 0.69 K/uL (1.2-3.4); Lymphocytes % (auto) 6.1 %; Mean Corpuscular Hemoglobin 27.6 pg (25.0-34.0); Mean Corpuscular Hgb Conc 33.8 g/dL (32.0-36.0); Mean Corpuscular Volume 81.8 fL (80.0-100.0); Monocytes # (auto) 1.02 K/uL (0.24-0.82); Neutrophils # (auto) 9.54 K/uL (1.4-6.5); Neutrophils % (auto) 83.9 %; Platelet Count 207 K/uL (130-400); RDW Coefficient of Variation 15.1 % (11.5-14.5); White Blood Count 11.36 K/ul (4.8-10.8)
[2021-11-23 06:52] LABS: BUN Creatinine Ratio 33.3 (10-20); Calcium 9.4 mg/dl (8.5-10.1); Creatinine Clr Calc Pharmacy 59.1 ml/min; Est GFR (African American) 95.3 ml/min; Est GFR (Non-African American) 82.2 ml/min; Potassium 3.6 mmol/L (3.5-5.1)
[2021-11-23] MEDS ORDERED: FUROSEMIDE INJ 20 MG/2 ML VIAL IV ONE (08:28)
[2021-11-23] MEDS: ASPIRIN 81 MG ECTAB PO SCH (08:38)
[2021-11-23] MEDS: CHLORTHALIDONE 25 MG TAB PO SCH (08:38)
[2021-11-23] MEDS: CALCIUM 600MG + VIT D 400 IU TAB PO SCH (08:38)
[2021-11-23] MEDS: ENOXAPARIN INJ 40 MG/0.4 ML SYR SQ SCH (08:39)
[2021-11-23] MEDS: CHOLECALCIFEROL 1,000 UNITS 25 MCG TAB PO SCH (08:39)
[2021-11-23] MEDS: PANTOprazole 40 MG TAB PO SCH ×2 (08:39→21:50)
[2021-11-23] MEDS: amLODIPine BESYLATE 5 MG TAB PO SCH (09:25)
--- NOTE | 2021-11-23 12:25 | Hospitalist Progress Note ---
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 She received 6 cycles of mini R-CHOP treatment, last cycle was given in February 2021. She had a recent PET scan done in [place] which showed lung involvement. She was saturating 87% on room air in the ED. She is being managed for the following: Acute hypoxemic respiratory failure, most likely from extensive metastatic lung disease: Patient saturating 87% on room air at presentation with tachypnea. History of diffuse large B-cell lymphoma: seems to be high-grade, status post chemo see above Patient had recent PET scan in the [facility] which showed lung involvement, and patient was supposed to follow-up with oncology on . Patient came into the ED 11/19 with complaint of shortness of breath. Was saturating 87% on room air, needed 2 L oxygen at presentation. Admitting CTA chest: No evidence of PE, suggestive of extensive/diffuse multifocal pulmonary metastatic disease. Complete atelectasis of the left upper lobe and a small left pleural effusion. LDH 396 and uric acid 7.6 Patient requires 4L O2 today, denies any chest pain or sore throat or cough. Pulmonology on board, recs noted. Pt started on cefepime 11/20 for possible necrotic pulmonary infection. WBC wnl, afebrile, Palliative care consulted, Dr Eason reached out 11/20, decadron 40 mg daily for 4 days to ease her breathing. Will use PPI Px BID for the same duration. Supplemental oxygen, titrate down as tolerated. 11/23 from 2 L now on 1 L NC continue Dexamethasone 40mg IV Day 08/[address] Eason- will discuss further Chemotherapy with patient as outpatient, recommend Radiation Onc evaluation Rad Onco consult placed- discussed with Dr. Hand- to start with Radiation of L upper lobe mass Friday (total of 5 sessions) continue Cefepime IV 2g IV q12h HTN elevated likely from Decadron on Chlorthalidone, PRN Labetalol Amlodipine 2.5mg po daily started monitor Leg Edema, BL Lasix 20mg IV today monitor closely Electrolyte abnormalities: Monitor and replete as appropriate. Hypercalcemia: Resolved with IV fluids Other chronic medical conditions: HTN, glucose intolerance resumed Chlorthalidone BSG 192 DVT prophylaxis: Lovenox DNR/DNI Disposition: Palliative care consulted, PT/OT, CM to assist with DC planning. Will need 2 step prior to DC. Prognosis Guarded. plan of care discussed with patient in detail and at length all questions answered she is understanding, agreeable, comfortable with the plan of care Admission and Anticipated Discharge Date Admission Date: November 19, 2021 Subjective ff up for acute hypoxic respiratory failure, etc seen resting in bed, comfortable on 1 L NC not in distress states she feels weak today breathing is improving no chest pain, dyspnea, palpitations, dizziness appetite is ok no other symptoms Review of Systems Review of Systems: all noted and negative except for above Physical Exam Physical Exam: General- oriented x 3, not in distress, speaks in sentences with no effort or accessory muscle use Eyes- anicteric Neck- no JVD Lungs- clear BS bilaterally, no rales/wheezes Heart- normal rate, regular rhythm; no murmurs Abdomen- normal bowel sounds, nondistended, soft, nontender Extremities-grade 2 lower leg edema, no erythema/warmth/calf tenderness Neuro- alert, oriented x 3; no gross focal neurologic deficits Skin- warm & dry Results & Data Results & Data ([facility]) Vital Signs (Past 12 Hours) Vital Signs Temp Pulse Pulse Resp BP Pulse Ox O2 Del Method 11/23/21 08:00 Nasal Cannula 11/23/21 08:26 36.6 C 93 H 18 158/89 H 93 Nasal Cannula 11/23/21 08:00 92 H 11/23/21 07:10 86 18 92 Nasal Cannula 11/23/21 03:37 36.5 C 93 H 18 168/95 H 93 Nasal Cannula 11/23/21 03:09 97 H 20 92 Nasal Cannula O2 Flow Rate 11/23/21 08:00 1 11/23/21 08:26 1 11/23/21 08:00 11/23/21 07:10 1 11/23/21 03:37 1 11/23/21 03:09 1 all noted and reviewed including below
[2021-11-23] MEDS: ALPRAZolam 0.25 MG TABLET PO SCH (21:43)
[2021-11-24] MEDS: LEVALBUTEROL HCL 1.25 MG/3 ML NEB NEB PRN ×6 (02:42→23:12)
[2021-11-24] MEDS: CEFEPIME 2,000 MG in SYRINGE 0 ML IV SCH ×2 (05:58→18:31)
[2021-11-24 09:10] LABS: Calcium 10.5 mg/dl (8.5-10.1); Creatinine Clr Calc Pharmacy 51.5 ml/min; Est GFR (African American) 91.2 ml/min; Est GFR (Non-African American) 78.7 ml/min; Potassium 3.5 mmol/L (3.5-5.1)
[2021-11-24] MEDS: PANTOprazole 40 MG TAB PO SCH ×2 (09:42→20:35)
[2021-11-24] MEDS: CHLORTHALIDONE 25 MG TAB PO SCH (09:42)
[2021-11-24] MEDS: CALCIUM 600MG + VIT D 400 IU TAB PO SCH (09:42)
[2021-11-24] MEDS: ENOXAPARIN INJ 40 MG/0.4 ML SYR SQ SCH (09:42)
[2021-11-24] MEDS: amLODIPine BESYLATE 5 MG TAB PO SCH (09:42)
[2021-11-24] MEDS: ASPIRIN 81 MG ECTAB PO SCH (09:42)
[2021-11-24] MEDS ORDERED: FUROSEMIDE INJ 20 MG/2 ML VIAL IV ONE (16:35)
--- NOTE | 2021-11-24 16:39 | Hospitalist Progress Note ---
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 She received 6 cycles of mini R-CHOP treatment, last cycle was given in February 2021. She had a recent PET scan done in [place] which showed lung involvement. She was saturating 87% on room air in the ED. She is being managed for the following: Acute hypoxemic respiratory failure, most likely from extensive metastatic lung disease: Patient saturating 87% on room air at presentation with tachypnea. History of diffuse large B-cell lymphoma: seems to be high-grade, status post chemo see above Patient had recent PET scan in the [facility] which showed lung involvement, and patient was supposed to follow-up with oncology on . Patient came into the ED 11/19 with complaint of shortness of breath. Was saturating 87% on room air, needed 2 L oxygen at presentation. Admitting CTA chest: No evidence of PE, suggestive of extensive/diffuse multifocal pulmonary metastatic disease. Complete atelectasis of the left upper lobe and a small left pleural effusion. LDH 396 and uric acid 7.6 Patient requires 4L O2 today, denies any chest pain or sore throat or cough. Pulmonology on board, recs noted. Pt started on cefepime 11/20 for possible necrotic pulmonary infection. WBC wnl, afebrile, Palliative care consulted, Dr Eason reached out 11/20, decadron 40 mg daily for 4 days to ease her breathing. Will use PPI Px BID for the same duration. Supplemental oxygen, titrate down as tolerated. 11/24 Remains on 2 L of nasal cannula Patient has completed recommended 4-day course of dexamethasone 40mg IV by oncologist Dr. Eason discussed with Dr. Eason- will discuss further Chemotherapy with patient as outpatient, recommend Radiation Onc evaluation Rad Onco consult placed- discussed with Dr. Hand- to start with Radiation of L upper lobe mass Friday (total of 5 sessions) continue Cefepime IV 2g IV q12h HTN elevated likely from Decadron on Chlorthalidone, PRN Labetalol Amlodipine 2.5mg po daily started Improving Leg Edema, BL Lasix 20mg IV today monitor closely Electrolyte abnormalities: Monitor and replete as appropriate. Hypercalcemia: Resolved with IV fluids Other chronic medical conditions: HTN, glucose intolerance resumed Chlorthalidone BSG 158 DVT prophylaxis: Lovenox DNR/DNI Disposition: Palliative care consulted, PT/OT, CM to assist with DC planning. Will need 2 step prior to DC. Prognosis Guarded. plan of care discussed with patient in detail and at length all questions answered she is understanding, agreeable, comfortable with the plan of care Admission and Anticipated Discharge Date Admission Date: November 19, 2021 Subjective Follow-up for acute hypoxic respiratory failure, lung metastasis, etc. Seen sitting up in bed, comfortable, not in distress Appears somewhat anxious States she just feels tired Breathing is okay, no cough, no fevers or chills Abdominal pain, nausea vomiting No other symptoms Later in the afternoon, patient was noted to be somewhat confused per national facilities manager of Systems Review of Systems: all noted and negative except for above Physical Exam Physical Exam: General- oriented x 2, not in distress, speaks in sentences with no effort or accessory muscle use Eyes- anicteric Neck- no JVD Lungs-clear breath sounds bilaterally, no rales or wheezing noted Heart- normal rate, regular rhythm; no murmurs Abdomen- normal bowel sounds, nondistended, soft, nontender Extremities-grade 1 through 2 lower extremity edema, no erythema/warmth, no calf tenderness Neuro- alert, oriented x 3; no gross focal neurologic deficits Skin- warm & dry Results & Data Results & Data ([facility]) Vital Signs (Past 12 Hours) Vital Signs Temp Pulse Pulse Resp BP Pulse Ox O2 Del Method 11/24/21 15:15 82 11/24/21 14:35 79 18 97 Nasal Cannula 11/24/21 11:16 36.5 C 82 138/76 99 Nebulizer 11/24/21 11:05 81 16 95 Nasal Cannula 11/24/21 08:00 83 11/24/21 10:00 Nasal Cannula 11/24/21 08:03 36.8 C 88 18 155/80 H 93 Nasal Cannula 11/24/21 07:15 87 19 94 Nasal Cannula O2 Flow Rate 11/24/21 15:15 11/24/21 14:35 2 11/24/21 11:16 11/24/21 11:05 2 11/24/21 08:00 11/24/21 10:00 2 11/24/21 08:03 2 11/24/21 07:15 2 all noted and reviewed including below
[2021-11-24] MEDS: ALPRAZolam 0.25 MG TABLET PO SCH (20:35)
[2021-11-25] MEDS: LEVALBUTEROL HCL 1.25 MG/3 ML NEB NEB PRN ×4 (03:15→14:46)
[2021-11-25] MEDS: CEFEPIME 2,000 MG in SYRINGE 0 ML IV SCH ×2 (06:26→18:07)
[2021-11-25 07:39] LABS: BUN Creatinine Ratio 42.9 (10-20); Calcium 11.1 mg/dl (8.5-10.1); Creatinine Clr Calc Pharmacy 43.7 ml/min; Est GFR (African American) 79.3 ml/min; Est GFR (Non-African American) 68.5 ml/min; Potassium 3.5 mmol/L (3.5-5.1)
[2021-11-25] MEDS: amLODIPine BESYLATE 5 MG TAB PO SCH (08:19)
[2021-11-25] MEDS: CHOLECALCIFEROL 1,000 UNITS 25 MCG TAB PO SCH (08:20)
[2021-11-25] MEDS: PANTOprazole 40 MG TAB PO SCH (08:20)
[2021-11-25] MEDS: ASPIRIN 81 MG ECTAB PO SCH (08:21)
[2021-11-25] MEDS: CALCIUM 600MG + VIT D 400 IU TAB PO SCH (08:21)
[2021-11-25] MEDS: CHLORTHALIDONE 25 MG TAB PO SCH (08:22)
[2021-11-25] MEDS: ENOXAPARIN INJ 40 MG/0.4 ML SYR SQ SCH (08:23)
--- NOTE | 2021-11-25 10:40 | Nephrology Consultation ---
Date of Consultation November 25, 2021 Assessment & Plan (1) Hypercalcemia: Calcium was 11.4 on 11/19 which improved to normal levels while she was on Decadron and fluids. This is again started rising, 11.4 today. She had got bilateral pedal edema and has received 1 dose of IV Lasix 20 mg on the last 2 days. - She has been both on Chlorthalidone and lasix, regino has element of volume depletion - Would start her on 75 mls normal saline, - Would consider calcitonin tmrw if still elevated. -Assess response today, to decide future course of action. -Would go for zoledronic acid if her calcium continues to be high, as her renal functions are not bad. 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 She received 6 cycles of mini R-CHOP treatment, last cycle was given in February 2021. She had a recent PET scan done in [place] which showed lung involvement. She has got extensive lung mets and has been on antibiotics for possible necrotic pulmonary infarction .She has completed 4-day course of Decadron as per hematology oncology recs. She remains on 1 to 2 L of oxygen via nasal cannula maintaining saturations more than 92%. She is DNR and has been reviewed by Palliative care, and wants to explore the choices avaliable to her. Allergies Allergy/AdvReac Type Severity Reaction Status Date / Time No Known Allergies Allergy Verified 11/19/21 22:13 Home Medications Medication Instructions Recorded Confirmed Type alendronate 70 mg tablet 70 mg PO WK 11/19/21 11/19/21 History alprazolam 0.5 mg tablet 0.25 mg PO HS 11/19/21 11/19/21 History aspirin 81 mg tablet,delayed 81 mg PO DAILY 11/19/21 11/19/21 History release calcium carbonate 500 mg-vitamin 1 tab PO DAILY 11/19/21 11/19/21 History D3 5 mcg (200 unit) tablet (Calcium 500 + D) chlorthalidone 25 mg tablet 12.5 mg PO DAILY 11/19/21 11/19/21 History cholecalciferol (vitamin D3) 50 50 mcg PO Q2D 11/19/21 11/19/21 History mcg (2,000 unit) tablet polyethylene glycol 3350 17 17 g PO DAILY PRN Constipation 11/19/21 11/19/21 History gram/dose oral powder (Miralax) Patient History Medical History Goals of care, counseling/discussion Mass of lung Metastatic cancer Social History Smoking Status: Never smoker Hx Alcohol Use: No Hx Substance Use: No Preferred Language: [place] Communication Ability: Effective Steam Flattener Required: No Beliefs That Will Affect Care: None marital status: / Current Living Situation: Family Current Living Situation Comment: With daughter and son in law How many Children do You have: 4 Feels Safe at Home: Yes Safety Concerns: Feels Safe At This Time Assistive Devices: Cane and Walker Assistive Devices Comment: Pt does not need/use cane/walker but they are in the house. Review of Systems Review of Systems: No shortness of breath , trace pedal edema. No cough. chest pain, No dysuria. Physical Exam Physical Exam: GENERAL: Alert and oriented x3. NAD, on room air. HEENT: No pallor, no icterus. Pupils equal, round and reactive to light. Oral mucosa moist. NECK: No JVD, no neck masses. HEART: S1 and S2 heard. Regular rate and rhythm. Systolic murmur at Aortic > Pulmonic area, no gallop. RESPIRATORY SYSTEM: Normal AP diameter. No accessory muscle use. No wheezing, no crackles. Decreased breath sounds b/l ABDOMEN: Soft, bowel sounds present, nontender, no distention. CENTRAL NERVOUS SYSTEM: No facial droop. Speech is clear. Obeys simple commands. Moves extremities. EXTREMITIES: Trace BLE edema, no erythema seen. Results & Data ([facility]) Vital Signs (Past 12 Hours) Vital Signs Temp Pulse Pulse Resp BP BP Pulse Ox 11/25/21 08:45 85 11/25/21 08:43 36.9 C 95 H 18 125/75 92 11/25/21 07:06 73 17 94 11/25/21 04:00 36.7 C 87 18 143/84 H 97 11/25/21 03:15 76 18 94 11/25/21 01:00 11/24/21 23:13 78 20 95 11/24/21 23:02 36.8 C 83 16 117/64 91 Pulse Ox O2 Del Method O2 Del Method O2 Flow Rate O2 Flow Rate 11/25/21 08:45 11/25/21 08:43 Nasal Cannula 1 11/25/21 07:06 Nasal Cannula 1 11/25/21 04:00 Nasal Cannula 2 11/25/21 03:15 Nasal Cannula 2 11/25/21 01:00 95 Nasal Cannula 2 11/24/21 23:13 Nasal Cannula 2 11/24/21 23:02 Nasal Cannula 2 Laboratory Results 11/23/21 05:40 11/25/21 05:56
--- NOTE | 2021-11-25 13:56 | Hospitalist Progress Note ---
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 She received 6 cycles of mini R-CHOP treatment, last cycle was given in February 2021. She had a recent PET scan done in [place] which showed lung involvement. She was saturating 87% on room air in the ED. She is being managed for the following: Acute hypoxemic respiratory failure, most likely from extensive metastatic lung disease: Patient saturating 87% on room air at presentation with tachypnea. History of diffuse large B-cell lymphoma: seems to be high-grade, status post chemo see above Patient had recent PET scan in [facility] which showed lung involvement, and patient was supposed to follow-up with oncology on . Patient came into the ED 11/19 with complaint of shortness of breath. Was saturating 87% on room air, needed 2 L oxygen at presentation. Admitting CTA chest: No evidence of PE, suggestive of extensive/diffuse multifocal pulmonary metastatic disease. Complete atelectasis of the left upper lobe and a small left pleural effusion. LDH 396 and uric acid 7.6 Patient requires 4L O2 today, denies any chest pain or sore throat or cough. Pulmonology on board, recs noted. Pt started on cefepime 11/20 for possible necrotic pulmonary infection. WBC wnl, afebrile, Palliative care consulted, Dr Eason reached out 11/20, decadron 40 mg daily for 4 days to ease her breathing. Will use PPI Px BID for the same duration. Supplemental oxygen, titrate down as tolerated. 11/25 Remains on 1-2 L of nasal cannula Patient has completed recommended 4-day course of dexamethasone 40mg IV by oncologist Dr. Eason discussed with Dr. Eason- will discuss further Chemotherapy with patient as outpatient, recommend Radiation Onc evaluation Rad Onco consult placed- discussed with Dr. Hand- to start with Radiation of L upper lobe mass Friday (total of 5 sessions) continue Cefepime IV 2g IV q12h HTN elevated likely from Decadron on Chlorthalidone, PRN Labetalol Amlodipine 2.5mg po daily started Improving Leg Edema, BL Lasix 20mg IV given x 2 doses 11/23, 11/24 monitor closely Electrolyte abnormalities: Monitor and replete as appropriate. Hypercalcemia: Ca rising again, today [address] Aguilar- Dhruv stop Chlorthalidone, start NSS at 75cc/hr Other chronic medical conditions: HTN, glucose intolerance hold Chlorthalidone as Ca elevated BSG 146 DVT prophylaxis: Lovenox DNR/DNI Disposition: Palliative care consulted, PT/OT, CM to assist with DC planning. Will need 2 step prior to DC. Prognosis Guarded. plan of care discussed with patient in detail and at length all questions answered she is understanding, agreeable, comfortable with the plan of care Admission and Anticipated Discharge Date Admission Date: November 19, 2021 Subjective ff up for respiratory failure, lung mets, etc seen resting in bed, comfortable oriented x 2 states she feels ok breathing is alright no cough, fever/chills, chest pain no abdominal pain, nausea/vomiting appetite is ok no other symptoms Review of Systems Review of Systems: all noted and negative except for above Physical Exam Physical Exam: General- oriented x 3, not in distress, speaks in sentences with no effort or accessory muscle use Eyes- anicteric Neck- no JVD Lungs- somewhat diminished but clear breath sounds bilaterally Heart- normal rate, regular rhythm; no murmurs Abdomen- normal bowel sounds, nondistended, soft, nontender Extremities- no pretibial edema, no calf tenderness Neuro- alert, oriented x 3; no gross focal neurologic deficits Skin- warm & dry Results & Data Results & Data ([facility]) Vital Signs (Past 12 Hours) Vital Signs Temp Pulse Pulse Resp BP Pulse Ox O2 Del Method 11/25/21 12:35 36.9 C 94 H 20 128/79 94 Room Air 11/25/21 11:52 Nasal Cannula 11/25/21 11:07 89 17 94 Nasal Cannula 11/25/21 08:45 85 11/25/21 08:43 36.9 C 95 H 18 125/75 92 Nasal Cannula 11/25/21 07:06 73 17 94 Nasal Cannula 11/25/21 04:00 36.7 C 87 18 143/84 H 97 Nasal Cannula 11/25/21 03:15 76 18 94 Nasal Cannula O2 Flow Rate 11/25/21 12:35 11/25/21 11:52 2 11/25/21 11:07 1 11/25/21 08:45 11/25/21 08:43 1 11/25/21 07:06 1 11/25/21 04:00 2 11/25/21 03:15 2 all noted and reviewed including below
[2021-11-25] MEDS: SODIUM CHLORIDE 0.9% 1000ML 1,000 ML IV SCH (14:43)
[2021-11-25] MEDS: ACETAMINOPHEN 325 MG TAB PO PRN (18:12)
[2021-11-25] MEDS: ALPRAZolam 0.25 MG TABLET PO SCH (21:48)
[2021-11-26] MEDS: CEFEPIME 2,000 MG in SYRINGE 0 ML IV SCH ×2 (05:45→21:15)
[2021-11-26] MEDS: SODIUM CHLORIDE 0.9% 1000ML 1,000 ML IV SCH (05:46)
[2021-11-26] MEDS: LEVALBUTEROL HCL 1.25 MG/3 ML NEB NEB PRN ×2 (07:28→20:03)
[2021-11-26 07:35] LABS: BUN Creatinine Ratio 42.9 (10-20); Calcium 10.9 mg/dl (8.5-10.1); Creatinine Clr Calc Pharmacy 47.4 ml/min; Est GFR (Non-African American) 76.8 ml/min; Potassium 3.5 mmol/L (3.5-5.1)
[2021-11-26] MEDS: CALCIUM 600MG + VIT D 400 IU TAB PO SCH (08:14)
[2021-11-26] MEDS: amLODIPine BESYLATE 5 MG TAB PO SCH (08:14)
[2021-11-26] MEDS: CHOLECALCIFEROL 1,000 UNITS 25 MCG TAB PO SCH (08:14)
[2021-11-26] MEDS: ASPIRIN 81 MG ECTAB PO SCH (08:14)
[2021-11-26] MEDS: PANTOprazole 40 MG TAB PO SCH (08:14)
[2021-11-26] MEDS: ENOXAPARIN INJ 40 MG/0.4 ML SYR SQ SCH (08:15)
--- NOTE | 2021-11-26 14:49 | XRay Report ---
XR chest 1V portable CLINICAL HISTORY: shortness of breath. COMPARISON STUDY: 11/19/2021 TECHNIQUE: 1 view of the chest FINDINGS: Single frontal view of the chest demonstrates the heart to again be enlarged. Marked metastatic lung disease is again seen with large pulmonary nodules present throughout both lungs. No acute alveolar o pacities were bronchograms are seen the patient is in a more upright position with decreased left ple ural effusion. However, PA and lateral radiographs would be the study of choice for further evaluatio n. There is no evidence for vascular congestion. There is no acute osseous pathology. IMPRESSION: 1. Compared to previous study, marked metastatic lung disease is again seen with no definite acute ch est disease identified. 2. Probable left pleural effusion behind the left hemidiaphragm which would be better evaluated by PA and lateral radiographs. ACT 112: Negative or not required by law. Electronically signed by: Rell Mera M.D. 11/26/2021 2:48 PM
--- NOTE | 2021-11-26 15:07 | CT Scan Report ---
CT head/brain wo con CLINICAL HISTORY: 89 years-old Female with altered mental status. Acutely altered mental status TECHNIQUE: Multiple axial CT images of the head were obtained without contrast. A dose lowering tech nique was utilized adhering to the principles of ALARA. CT DOSE: 537.48 mGy.cm COMPARISON: Head CT 09/18/2012 FINDINGS: No acute intracranial hemorrhage, midline shift, intracranial mass, hydrocephalus, territorial ischem ia or abnormal extra-axial collection. Involutional changes of the brain parenchyma. Mild white matte r hypodensities suggest chronic microvascular ischemic disease. Cerebral vascular calcifications. The calvarium is intact. Prior bilateral lens repair. The paranasal sinuses, mastoid air cells, and m iddle ear cavities are clear. IMPRESSION: No acute intracranial abnormality. ACT 112: Negative or not required by law. The above report was generated using voice recognition software. It may contain grammatical, syntax o r spelling errors. Electronically signed by: Mayank Celestin M.D. 11/26/2021 3:06 PM
[2021-11-26 15:35] LABS: Base Excess ABG 9.7 mEq/L (-9-1.8); HCO3 ABG 34 mmol/L (19-24); Oxygen Saturation ABG 97.5 % (90-95); PCO2 ABG 45 mmHg (35-46); PO2 ABG 71 mmHg (80-95); pH ABG 7.49 (7.35-7.45)
[2021-11-26 16:00] LABS: Allen Test Pos (Pos)
--- NOTE | 2021-11-26 17:30 | Nephrology Progress Note ---
Date of Service November 26, 2021 Assessment & Plan (1) Hypercalcemia: Plan: Calcium was 11.4 on 11/19 which improved to normal levels while she was on Decadron and fluids. after stopping these, calcium started rising, 11.4 > 10.9 today after a few doses of low mg IV lasix mild respiratory distress today; ABG w/ hypoxemia, metabolic alkalosis - calcium too low to consider calcitonin - hold NS given breathing; diuretic prn only -may consider zolendronic acid if her calcium continues to be markedly elevated (2) Diffuse large B-cell lymphoma: (3) Metastatic lung carcinoma: (4) Palliative care encounter: Admission and Anticipated Discharge Date Admission Date: November 19, 2021 Subjective daughter at bedside; pt has XRT this am; has been very sleepy most of day today and yesterday; minimal po; denies pain or sob; tells me she's tired; no n/v Review of Systems Review of Systems: All systems reviewed & are unremarkable except as noted in Subjective Physical Exam Constitutional: well developed, + frail appearing and + lethargic; no acute distress Eyes: EOM intact bilaterally ENMT: Ears: no external ear abnormality Nose: no external nose abnormality Mouth: + dry oral mucous membranes Neck: no nuchal rigidity Respiratory: + labored breathing (slight) and + paradoxical thoraco-abdominal movement Auscultation: + diminished lung sounds Cardiovascular: Rate/Rhythm: regular rate and regular rhythm Extremities: + edema (trace pretibial) Gastrointestinal (Abdomen): Inspection/Auscultation: normal bowel sounds Percussion/Palpation: abdomen soft; abdomen nontender Musculoskeletal: Extremities: strength 5/5 throughout Skin: no rashes, warm and dry Neurologic: fine, fluent speech, no tremor Results & Data ([facility]) Vital Signs (Past 12 Hours) Vital Signs Temp Pulse Pulse Resp BP Pulse Ox O2 Del Method 11/26/21 16:11 36.7 C 89 20 158/89 H 94 Nasal Cannula 11/26/21 14:56 91 H 11/26/21 11:07 36.5 C 93 H 18 145/84 H 93 Nasal Cannula 11/26/21 08:30 Nasal Cannula 11/26/21 08:00 95 H 11/26/21 07:33 36.6 C 91 H 20 169/94 H 92 Nasal Cannula 11/26/21 07:29 99 H 18 93 Nasal Cannula O2 Flow Rate 11/26/21 16:11 2 11/26/21 14:56 11/26/21 11:07 1 11/26/21 08:30 2 11/26/21 08:00 11/26/21 07:33 1 11/26/21 07:29 1 Laboratory Results 11/23/21 05:40 11/26/21 06:19 Ca 10.9 ABG 1530 reviewed
--- NOTE | 2021-11-26 18:52 | Hospitalist Progress Note ---
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 She received 6 cycles of mini R-CHOP treatment, last cycle was given in February 2021. She had a recent PET scan done in [place] which showed lung involvement. She was saturating 87% on room air in the ED. She is being managed for the following: Acute hypoxemic respiratory failure, most likely from extensive metastatic lung disease: Patient saturating 87% on room air at presentation with tachypnea. History of diffuse large B-cell lymphoma: seems to be high-grade, status post chemo see above Patient had recent PET scan in the [facility] which showed lung involvement, and patient was supposed to follow-up with oncology on . Patient came into the ED 11/19 with complaint of shortness of breath. Was saturating 87% on room air, needed 2 L oxygen at presentation. Admitting CTA chest: No evidence of PE, suggestive of extensive/diffuse multifocal pulmonary metastatic disease. Complete atelectasis of the left upper lobe and a small left pleural effusion. LDH 396 and uric acid 7.6 Patient requires 4L O2 today, denies any chest pain or sore throat or cough. Pulmonology on board, recs noted. Pt started on cefepime 11/20 for possible necrotic pulmonary infection. WBC wnl, afebrile, Palliative care consulted, Dr Eason reached out 11/20, decadron 40 mg daily for 4 days to ease her breathing. Will use PPI Px BID for the same duration. Supplemental oxygen, titrate down as tolerated. 11/26 Remains on 1-2 L of nasal cannula continue Cefepime IV 2g IV q12h Day 7 Patient has completed recommended 4-day course of dexamethasone 40mg IV by oncologist Dr. Eason Rad Onco consult placed- discussed with Dr. Hand- to start with Radiation of L upper lobe mass today (total of 5 sessions) discussed with Dr. Eason- will discuss further Chemotherapy with patient as outp atient, recommend Radiation Onc evaluation Weakness, Confusion likely secondary to high dose steroids CT head: negative ABG: no hypercapnea CXR: no pulm congestion should improve after discontinuation of IV steroids will monitor HTN elevated likely from Decadron on Chlorthalidone, PRN Labetalol Amlodipine 2.5mg po daily started Improving Leg Edema, BL Lasix 20mg IV given x 2 doses 11/23, 11/24 monitor closely Electrolyte abnormalities: Monitor and replete as appropriate. Hypercalcemia: Ca 11--> 10.[address] Aguilar- Nephro stop Chlorthalidone, start NSS at 75cc/hr--> d/c today as patient having mild dyspnea and persistent leg edema monitor daily Other chronic medical conditions: HTN, glucose intolerance hold Chlorthalidone as Ca elevated DVT prophylaxis: Lovenox DNR/DNI Disposition: Palliative care consulted, PT/OT, CM to assist with DC planning. Will need 2 step prior to DC. Prognosis Guarded. plan of care discussed with patient in detail and at length all questions answered she is understanding, agreeable, comfortable with the plan of care Admission and Anticipated Discharge Date Admission Date: November 19, 2021 Subjective ff up for pulm mets, resp failure, etc seen resting in bed, comfortable appears very tired sleeping but easily awakened patient's daughter she was able to speak more with her grandkids patient states she feels alright maybe slight dyspnea no other symptoms Review of Systems Review of Systems: all noted and negative except for above Physical Exam Physical Exam: General- oriented x 3, not in distress, speaks in sentences with no effort or accessory muscle use drowsy Eyes- anicteric Neck- no JVD Lungs- clear BS bilaterally, no rales/wheezes Heart- normal rate, regular rhythm; no murmurs Abdomen- normal BS, nondistended, soft, nontender Extremities- BL lower leg pretibial edema, no calf tenderness Neuro- alert, oriented x 3; no gross focal neurologic deficits Skin- warm & dry Results & Data Results & Data ([facility]) Vital Signs (Past 12 Hours) Vital Signs Temp Pulse Pulse Resp BP Pulse Ox O2 Del Method 11/26/21 18:44 36.8 C 96 H 20 159/89 H 93 Nasal Cannula 11/26/21 16:11 36.7 C 89 20 158/89 H 94 Nasal Cannula 11/26/21 14:56 91 H 11/26/21 11:07 36.5 C 93 H 18 145/84 H 93 Nasal Cannula 11/26/21 08:30 Nasal Cannula 11/26/21 08:00 95 H 11/26/21 07:33 36.6 C 91 H 20 169/94 H 92 Nasal Cannula 11/26/21 07:29 99 H 18 93 Nasal Cannula O2 Flow Rate 11/26/21 18:44 2 11/26/21 16:11 2 11/26/21 14:56 11/26/21 11:07 1 11/26/21 08:30 2 11/26/21 08:00 11/26/21 07:33 1 11/26/21 07:29 1 all noted and reviewed including below
[2021-11-26] MEDS ORDERED: LEVALBUTEROL 1.25MG/0.5ML NEB NEB STA (19:39)
[2021-11-26] MEDS ORDERED: FUROSEMIDE INJ 20 MG/2 ML VIAL IV ONE (19:39)
[2021-11-26] MEDS: ALPRAZolam 0.25 MG TABLET PO SCH (21:12)
[2021-11-27 07:54] LABS: BUN Creatinine Ratio 36.1 (10-20); Creatinine Clr Calc Pharmacy 46.2 ml/min; Est GFR (African American) 86.1 ml/min; Est GFR (Non-African American) 74.3 ml/min; Potassium 3.2 mmol/L (3.5-5.1)
[2021-11-27] MEDS: CALCIUM 600MG + VIT D 400 IU TAB PO SCH (08:28)
[2021-11-27] MEDS: amLODIPine BESYLATE 5 MG TAB PO SCH (08:28)
[2021-11-27] MEDS: ASPIRIN 81 MG ECTAB PO SCH (08:28)
[2021-11-27] MEDS: ENOXAPARIN INJ 40 MG/0.4 ML SYR SQ SCH (08:28)
[2021-11-27] MEDS: PANTOprazole 40 MG TAB PO SCH (08:28)
--- NOTE | 2021-11-27 10:55 | Nephrology Progress Note ---
Date of Service November 27, 2021 Assessment & Plan (1) Hypercalcemia: Plan: likeliest from her lymphoma. hypercalcemia of Calcium was 11.4 on 11/19 presentation which improved to normal levels while she was on Decadron and fluids. after stopping these, calcium started rising, 11.4 > 10.9>11 today improved respiratory status today; ABG w/ hypoxemia, metabolic alkalosis; has low K now too - calcium too low to consider calcitonin or zometa; likely to climb though -will give low dose NS at 50 mL hourly and watch breathing -also will give K supplements 60 mEq po; if not tolerating will need IV -note she is still on calcium and D supplements and will hold these -will check calcium labs tomorrow am and consider next steps; some are reference labs but may be useful in follow up -daily bmp 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; hypoxic on presentation (3) Metastatic lung carcinoma: (4) Palliative care encounter: Admission and Anticipated Discharge Date Admission Date: November 19, 2021 Subjective daughter (?Sanket) at bedside; pt still somnolent, not taking po. denies sx to me but does say she has a bit of abd tenderness when asked Review of Systems Review of Systems: All systems reviewed & are unremarkable except as noted in Subjective Physical Exam Constitutional: well developed, + frail appearing and + lethargic (sleeping soundly; wakens briefly w/ stimulus repeatedly); no acute distress Eyes: EOM intact bilaterally ENMT: Ears: no external ear abnormality Nose: no external nose abnormality Mouth: + dry oral mucous membranes Neck: no nuchal rigidity Respiratory: normal respiratory effort Auscultation: + diminished lung sounds Cardiovascular: Rate/Rhythm: regular rate and regular rhythm Extremities: + edema (trace pretibial) Gastrointestinal (Abdomen): Inspection/Auscultation: normal bowel sounds Percussion/Palpation: + abdomen tender (L sided upper and danish lower abd TTP) and abdomen soft; no guarding Musculoskeletal: Extremities: strength 5/5 throughout Skin: no rashes, warm and dry Neurologic: fine, appropriate but limited speech, answers simple questions 1-2 appropriately Results & Data ([facility]) Vital Signs (Past 12 Hours) Vital Signs Temp Pulse Pulse Resp BP BP Pulse Ox 11/27/21 06:55 36.7 C 92 H 20 121/69 90 11/27/21 03:39 37.1 C 94 H 20 159/87 H 93 11/27/21 03:14 94 H 11/26/21 23:15 11/26/21 23:39 36.3 C L 60 18 136/73 95 11/26/21 23:33 37.4 C 97 H 20 121/76 92 11/26/21 22:42 O2 Del Method O2 Flow Rate 11/27/21 06:55 2 11/27/21 03:39 2 11/27/21 03:14 11/26/21 23:15 Room Air 11/26/21 23:39 2 11/26/21 23:33 2 11/26/21 22:42 Nasal Cannula 2 Laboratory Results 11/23/21 05:40 11/27/21 07:16
[2021-11-27] MEDS ORDERED: POTASSIUM CHLORIDE CRTAB 20 MEQ TABCR PO STA (10:57)
--- NOTE | 2021-11-27 14:27 | Palliative Care Progress Note ---
Date of Service November 27, 2021 Assessment & Plan (1) Palliative care encounter: Plan: I talked with Jovana and her daughter, Paige, at bedside. Her son was also present. We discussed how her radiation treatments are going. She tells me that she doesn't like having her arms over her head but that otherwise it is going ok. I asked her if she felt like she was able to continue treatment with feeling so weak. She told me that she would if it helps. I told her that we wanted to make sure that we understood what her wishes were so that we could provide the care and support that she needs. Before she could answer, her son spoke up and told me that she wanted whatever it would take. I asked Jovana if she remembered our conversation from last week and she was not able to recall. At that time, she told me that she would be agreeable to a course of palliative radiation therapy, knowing that the lymphoma would not be cured. She also told me that she would prefer not to have further chemotherapy at that time. I reviewed that with her and asked her how she felt about that. She told me that she would do "whatever I need to do". Her daughter, Paige, told me that they have spoken with Dr. Eason and are planning to meet with him after her discharge to discuss treatment options. Admission and Anticipated Discharge Date Admission Date: November 19, 2021 Subjective Feeling very weak today. Sleeping but easily arousable. Denies pain or dyspnea. Review of Systems Review of Systems: ESAS Pain 0/3 Dyspnea 0/3 Fatigue 2/3 Nausea 0/3 Drowsiness 1/3 PPS 40% Physical Exam Constitutional: + ill appearing; no acute distress Respiratory: normal respiratory effort; no labored breathing Neurologic: awake; not confused Results & Data ([facility]) Vital Signs (Past 12 Hours) Vital Signs Temp Pulse Pulse Resp BP Pulse Ox O2 Flow Rate 11/27/21 06:55 98.1 F 92 H 20 121/69 90 2 11/27/21 03:39 98.8 F 94 H 20 159/87 H 93 2 11/27/21 03:14 94 H PG Care Time/CCT Total # of Minutes Spent Total Time Spent with Patient: Total time spent is greater than 50% in coordination of care (as documented) at patient's floor/unit and/or counseling patient: Coding Level of Care Code 72955 Subseq Hosp Care Lvl 2 Diagnoses Palliative care encounter Z51.5
--- NOTE | 2021-11-27 18:47 | Hospitalist Progress Note ---
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 She received 6 cycles of mini R-CHOP treatment, last cycle was given in February 2021. She had a recent PET scan done in [place] which showed lung involvement. She was saturating 87% on room air in the ED. She is being managed for the following: Acute hypoxemic respiratory failure, most likely from extensive metastatic lung disease: Patient saturating 87% on room air at presentation with tachypnea. History of diffuse large B-cell lymphoma: seems to be high-grade, status post chemo see above Patient had recent PET scan in the [facility] which showed lung involvement, and patient was supposed to follow-up with oncology on . Patient came into the ED 11/19 with complaint of shortness of breath. Was saturating 87% on room air, needed 2 L oxygen at presentation. Admitting CTA chest: No evidence of PE, suggestive of extensive/diffuse multifocal pulmonary metastatic disease. Complete atelectasis of the left upper lobe and a small left pleural effusion. LDH 396 and uric acid 7.6 Patient requires 4L O2, denies any chest pain or sore throat or cough. Pulmonology on board, recs noted. Pt started on cefepime 11/20 for possible necrotic pulmonary infection. WBC wnl, afebrile, Palliative care consulted, Dr Eason reached out 11/20, decadron 40 mg daily for 4 days to ease her breathing. Will use PPI Px BID for the same duration. Supplemental oxygen, titrate down as tolerated. 11/26 Remains on 1-2 L of nasal cannula Has required intermittent Lasix IV for pulmonary congestion Completed cefepime IV 2g IV q12h x7 days 4-day course of dexamethasone IV Patient has completed recommended 4-day course of dexamethasone 40mg IV by oncologist Dr. Eason Rad Onco consult placed- discussed with Dr. Hand- to start with Radiation of L upper lobe mass -day 2 out of [address] Eason- will discuss further Chemotherapy with patient as outpatient, recommend Radiation Onc evaluation Patient progressively becoming weak, but very poor appetite since finishing Decadron course CT head: No acute process, ABG: No hypercapnia Likely from high-dose Decadron, extensive lung mets Message Dr. Eason regarding prognosis will discuss goals of care with her family given clinical deterioration Weakness, Confusion likely secondary to high dose steroids CT head: negative ABG: no hypercapnea CXR: no pulm congestion Management per above HTN elevated likely from Decadron on Chlorthalidone, PRN Labetalol Amlodipine 2.5mg po daily started Improving Leg Edema, BL Lasix 20mg IV given x 2 doses 11/23, 11/24 monitor closely Electrolyte abnormalities: Monitor and replete as appropriate. Hypercalcemia: Ca 11--> 10.9-->[address] Aguilar- Nephro stop Chlorthalidone, started NSS at 75cc/hr--> d/c as patient having mild dyspnea and persistent leg edema monitor daily Nephrology on board Other chronic medical conditions: HTN, glucose intolerance hold Chlorthalidone as Ca elevated DVT prophylaxis: Lovenox DNR/DNI Disposition: Palliative care consulted, PT/OT, CM to assist with DC planning. Will need 2 step prior to DC. Prognosis Guarded. plan of care discussed with patient in detail and at length all questions answered she is understanding, agreeable, comfortable with the plan of care Admission and Anticipated Discharge Date Admission Date: November 19, 2021 Subjective Follow-up for acute respiratory failure, extensive lung metastasis from B-cell lymphoma, etc. Seen with patient's daughter Sabi at the bedside Patient is sleeping but easily awakened, appears very tired, drowsy Poor appetite x2 days now States breathing is okay No chest pain, palpitations, headache, dizziness from home, abdominal pain, nausea vomiting no other symptoms Review of Systems Review of Systems: all noted and negative except for above Physical Exam Physical Exam: General- oriented x 2, not in distress, speaks in sentences with no effort or accessory muscle use Eyes- anicteric Neck- no JVD Lungs- clear breath sounds bilaterally, no rales/wheezes Heart- normal rate, regular rhythm; no murmurs Abdomen- normal bowel sounds, nondistended, soft, nontender Extremities- mild lower leg edema, no calf tenderness Neuro- alert, oriented x 2; no gross focal neurologic deficits Skin- warm & dry Results & Data Results & Data ([facility]) Vital Signs (Past 12 Hours) Vital Signs Temp Pulse Pulse Resp BP BP Pulse Ox 11/27/21 16:11 87 11/27/21 14:58 37.1 C 95 H 20 124/75 92 11/27/21 06:55 36.7 C 92 H 20 121/69 90 O2 Del Method O2 Flow Rate 11/27/21 16:11 11/27/21 14:58 Room Air 11/27/21 06:55 2 all noted and reviewed including below
[2021-11-28] MEDS: amLODIPine BESYLATE 5 MG TAB PO SCH (09:00)
[2021-11-28] MEDS: ASPIRIN 81 MG ECTAB PO SCH (09:01)
[2021-11-28] MEDS: PANTOprazole 40 MG TAB PO SCH (09:01)
[2021-11-28] MEDS: ENOXAPARIN INJ 40 MG/0.4 ML SYR SQ SCH (09:01)
[2021-11-28 09:30] LABS: BUN Creatinine Ratio 45.1 (10-20); Calcium 11.8 mg/dl (8.5-10.1); Creatinine Clr Calc Pharmacy 46.8 ml/min; Est GFR (African American) 87.5 ml/min; Est GFR (Non-African American) 75.5 ml/min; Potassium 3.8 mmol/L (3.5-5.1)
[2021-11-28] MEDS: ACETAMINOPHEN 325 MG TAB PO PRN (11:16)
--- NOTE | 2021-11-28 15:46 | Hospitalist Progress Note ---
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 She received 6 cycles of mini R-CHOP treatment, last cycle was given in February 2021. She had a recent PET scan done in [facility] which showed lung involvement. She was saturating 87% on room air in the ED. She is being managed for the following: Acute hypoxemic respiratory failure, most likely from extensive metastatic lung disease: Patient saturating 87% on room air at presentation with tachypnea. History of diffuse large B-cell lymphoma: seems to be high-grade, status post chemo see above Patient had recent PET scan in the [facility] which showed lung involvement, and patient was supposed to follow-up with oncology on . Patient came into the ED 11/19 with complaint of shortness of breath. Was saturating 87% on room air, needed 2 L oxygen at presentation. Admitting CTA chest: No evidence of PE, suggestive of extensive/diffuse multifocal pulmonary metastatic disease. Complete atelectasis of the left upper lobe and a small left pleural effusion. LDH 396 and uric acid 7.6 early in the admission Pulmonology evaluated, s/p cefepime 11/20 x 7days for possible necrotic pulmonary infection. Per d/w Dr. Eason 11/20, s/p decadron 40 mg QD x 4 days Pt progressively becoming weak since finishing decadron course, could be complicated by her current status and comorbidities. 11/26 CT Head w/ no acute process. Palliative care on board, appreciate recs Pt currently getting radiation day 3, plan to f/u w/ Dr. Eason as OP to discuss treatment options. Patient requires 2L O2, denies any chest pain or sore throat or cough. Has been on prn lasix for pul congestion. Pt remains weak and frail w/ poor appetite, prognosis guarded, dtr updated at bedside and made aware. Weakness likely secondary to high-dose steroid on the background progressive metastatic disease: 11/26 CT head negative, 11/26 CXR no pulmonary congestion. See above. Hypertension: Blood pressure elevated likely secondary from Decadron during hospital course, amlodipine 2.5 Mg daily was started on top of home chlorthalidone. Blood pressure better. Electrolyte abnormalities: Monitor and replete as appropriate. Hypercalcemia: Calcium level mostly uptrending since 11/24. Chlorthalidone stopped. Vitamin D and calcium supplements stopped. 11/27 vitamin D level: 53.6, PTH intact 3.8, PTH RP pending. Could be hypercalcemia of malignancy. IV fluid resuscitation is complicated with pulmonary congestion, nephrology on board, appreciate recommendation. Other chronic medical conditions: HTN, glucose intolerance ---> resume home meds as able. DVT prophylaxis: Lovenox DNR/DNI Disposition: Palliative care consulted, PT/OT, CM to assist with DC planning. Will need 2 step prior to DC. Prognosis Guarded. Admission and Anticipated Discharge Date Admission Date: November 19, 2021 Subjective Patient seen and examined at bedside as a follow-up of acute hypoxemic respiratory failure most likely from extensive metastatic lung disease on the background of diffuse large B-cell lymphoma and weakness/confusion likely seco ndary to high-dose steroids, iatrogenic. Patient was lying in bed, on 2 L nasal cannula oxygen, sleepy but arousable for exam, denies any acute events overnight, reports eating little which has been going on for a while, reports feeling tired and weak, was stating that " I do not want to go for radiation, my arms hurts", when asked where does it hurts she was not able to point specifically, non tender on exam and rage of motion at bedside. Patient denies headache or chest pain or other discomfort at bedside exam. Physical Exam Physical Exam: GENERAL: Alert and oriented x3. NAD, on 2L NC O2 HEENT: No pallor, no icterus. Pupils equal, round and reactive to light. Oral mucosa moist. NECK: No JVD, no neck masses. HEART: S1 and S2 heard. Regular rate and rhythm. Systolic murmur at Aortic > Pulmonic area, no gallop. RESPIRATORY SYSTEM: Normal AP diameter. No accessory muscle use. No wheezing, no crackles. ABDOMEN: Soft, bowel sounds present, nontender, no distention. CENTRAL NERVOUS SYSTEM: No facial droop. Speech is clear. Obeys simple commands. Moves extremities. EXTREMITIES: No edema, no erythema seen. Results & Data Results & Data ([facility]) Vital Signs (Past 12 Hours) Vital Signs Temp Pulse Resp BP Pulse Ox O2 Del Method O2 Flow Rate 11/28/21 10:07 Nasal Cannula 2 11/28/21 08:17 36.7 C 87 18 117/74 93 Nasal Cannula 2
--- NOTE | 2021-11-28 16:35 | Nephrology Progress Note ---
Date of Service November 28, 2021 Assessment & Plan (1) Hypercalcemia: Plan: likeliest from her lymphoma. hypercalcemia of Calcium was 11.4 on 11/19 presentation which improved to normal levels while she was on Decadron and fluids. after stopping these, calcium started rising, 11.4 > 10.9>11>11.8 today improved respiratory status today; ABG w/ hypoxemia, metabolic alkalosis; has low K now too. CXR 11/27 w/o vascular congestion/plm edema but extensive disease - moderate hypercalcemia>calcium climbing but too low to consider calcitonin or zometa; plan to give these when ca closer to 14 or depending on clinical course; eval if these can be given as OP -hold IV fluids -on 11/27, stopped calcium and D supplements; cont to hold -will check calcium labs tomorrow am and consider next steps; some are reference labs but may be useful in follow up -daily bmp and will check albumin in am 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; hypoxic on presentation (3) Metastatic lung carcinoma: (4) Palliative care encounter: Admission and Anticipated Discharge Date Admission Date: November 19, 2021 Subjective seen on rounds at about 1030; working w/ PT and sitting on sideof bed w/ effort. c/o sob; marked weakness generalized; more awake; apparently very chatty for a hfew hrs yesterday Review of Systems Review of Systems: All systems reviewed & are unremarkable except as noted in Subjective Physical Exam Constitutional: well developed and + frail appearing; no acute distress Eyes: EOM intact bilaterally ENMT: Ears: no external ear abnormality Nose: no external nose abnormality Mouth: + dry oral mucous membranes Neck: no nuchal rigidity Respiratory: normal respiratory effort and + tachypneic Auscultation: + diminished lung sounds and + crackles (bibasilar) Cardiovascular: Rate/Rhythm: regular rate and regular rhythm Extremities: + edema (trace pretibial) Gastrointestinal (Abdomen): Inspection/Auscultation: normal bowel sounds Percussion/Palpation: + abdomen tender (L sided upper and danish lower abd TTP) and abdomen soft; no guarding Musculoskeletal: Extremities: strength 5/5 throughout Skin: no rashes, warm and dry Neurologic: fine, very limited speech, no tremor Genitourinary: ivory present Results & Data ([facility]) Vital Signs (Past 12 Hours) Vital Signs Temp Pulse Resp BP BP Pulse Ox O2 Del Method 11/28/21 16:02 36.7 C 90 16 117/77 94 Nasal Cannula 11/28/21 10:07 Nasal Cannula 11/28/21 08:17 36.7 C 87 18 117/74 93 Nasal Cannula O2 Flow Rate 11/28/21 16:02 2 11/28/21 10:07 2 11/28/21 08:17 2 Laboratory Results 11/23/21 05:40 11/28/21 08:39
[2021-11-29] MEDS: ASPIRIN 81 MG ECTAB PO SCH (08:51)
[2021-11-29] MEDS: amLODIPine BESYLATE 5 MG TAB PO SCH (08:51)
[2021-11-29] MEDS: ENOXAPARIN INJ 40 MG/0.4 ML SYR SQ SCH (08:52)
[2021-11-29] MEDS: ACETAMINOPHEN 325 MG TAB PO PRN ×2 (09:03→21:46)
[2021-11-29 09:11] LABS: Hemoglobin 11.6 g/dl (12.0-16.0); Mean Corpuscular Hemoglobin 27.6 pg (25.0-34.0); Mean Corpuscular Hgb Conc 32.2 g/dL (32.0-36.0); Mean Corpuscular Volume 85.5 fL (80.0-100.0); Mean Platelet Volume 11.1 fL (9.4-12.3); Platelet Count 168 K/uL (130-400); RDW Coefficient of Variation 14.5 % (11.5-14.5); RDW Standard Deviation 45.2 fL (36.4-46.3); Red Blood Count 4.21 M/uL (3.93-5.22); White Blood Count 11.25 K/ul (4.8-10.8)
[2021-11-29 09:45] LABS: Albumin Level 3.1 gm/dl (3.4-5.0); BUN Creatinine Ratio 42.9 (10-20); Calcium 11.5 mg/dl (8.5-10.1); Creatinine Clr Calc Pharmacy 43.2 ml/min; Est GFR (African American) 79.3 ml/min; Est GFR (Non-African American) 68.5 ml/min; Magnesium 1.3 mg/dl (1.7-2.4); Phosphorus 2.4 mg/dl (2.5-4.9); Potassium 3.6 mmol/L (3.5-5.1)
[2021-11-29] MEDS: MAGNESIUM SULFATE / D5W 1 GM/100 ML BAG IV SCH ×3 (12:23→16:24)
[2021-11-29] MEDS: POT PHOSPHATE MONOBASIC W/ SOD TAB PO SCH ×3 (13:15→21:42)
--- NOTE | 2021-11-29 16:23 | Nephrology Progress Note ---
Date of Service November 29, 2021 Assessment & Plan (1) Hypercalcemia: Plan: likeliest from her lymphoma. hypercalcemia of Calcium was 11.4 on 11/19 presentation which improved to normal levels while she was on Decadron and fluids. after stopping these, calcium started rising, 11.4 > 10.9>11>11.8>11.5 (corrects to 12.1) today ABG w/ hypoxemia, metabolic alkalosis; has low K now too. CXR 11/27 w/o vascular congestion/plm edema but extensive disease - moderate hypercalcemia>calcium climbing but too low to consider calcitonin and only today could give zometa; plan to give calcitonin if needed when ca closer to 14 or depending on clinical course; can potentially be given as an OP by oncology -zometa 4 mg IV x 1 today -hold IV fluids d/t breathing -on 11/27, stopped calcium and D supplements; cont to hold -check bmp, mag daily -getting IV mag today; will start po as well -f/u pending calcium labs tomorrow am and consider next steps; some are reference labs but may be useful in follow up 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 very sleepy today; woke earlier today for a period; denies sob, denies n/v, denies uncontrolled pain; still very tired Review of Systems Review of Systems: All systems reviewed & are unremarkable except as noted in Subjective Physical Exam 2 Constitutional: well developed, + frail appearing and + lethargic (sleeping soundly; wakens briefly w/ stimulus repeatedly); no acute distress Eyes: EOM intact bilaterally ENMT: Ears: no external ear abnormality Nose: no external nose abnormality Mouth: + dry oral mucous membranes Neck: no nuchal rigidity Respiratory: normal respiratory effort, + tachypneic and + paradoxical thoraco-abdominal movement Auscultation: + diminished lung sounds and + crackles (bibasilar) Cardiovascular: Rate/Rhythm: regular rate and regular rhythm Extremities: + edema (trace pretibial) Gastrointestinal (Abdomen): Inspection/Auscultation: normal bowel sounds Percussion/Palpation: + abdomen tender (L sided upper and danish lower abd TTP) and abdomen soft; no guarding Musculoskeletal: Extremities: strength 5/5 throughout Skin: no rashes, warm and dry Neurologic: limited but appropriate speech Results & Data ([facility]) Vital Signs (Past 12 Hours) Vital Signs Temp Pulse Resp BP BP Pulse Ox O2 Del Method 11/29/21 14:51 36.7 C 88 16 119/77 91 Nasal Cannula 11/29/21 08:38 Nasal Cannula 11/29/21 06:58 37.2 C 100 H 18 116/76 97 Nasal Cannula O2 Flow Rate 11/29/21 14:51 2 11/29/21 08:38 2 11/29/21 06:58 2 Laboratory Results 11/29/21 08:41 11/29/21 08:41 ca 11.5 (corrects to 12.1)
[2021-11-29] MEDS ORDERED: ZOLEDRONIC ACID 4 MG in 0.9 % SODIUM CHLORIDE 100 ML IV ONE (17:00)
--- NOTE | 2021-11-29 20:06 | Hospitalist Progress Note ---
Date of Service November 29, 2021 Assessment & Plan (1) Metastatic cancer: Plan 89-year-old lady with PMH of diffuse large B-cell lymphoma of multiple recent status post chemo, HLD, glucose intolerance, HTN, vitamin D deficiency, osteoporosis, plantar fasciitis presented 11/19 to our ED with complaint of shortness of breath. 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 She received 6 cycles of mini R-CHOP treatment, last cycle was given in February 2021. She had a recent PET scan done in [facility] which showed lung involvement. She was saturating 87% on room air in the ED. She is being managed for the following: Acute hypoxemic respiratory failure, most likely from extensive metastatic lung disease: Patient saturating 87% on room air at presentation with tachypnea. History of diffuse large B-cell lymphoma: seems to be high-grade, status post chemo see above Patient had recent PET scan in the [facility] which showed lung involvement, and patient was supposed to follow-up with oncology on . Patient came into the ED 11/19 with complaint of shortness of breath. Was saturating 87% on room air, needed 2 L oxygen at presentation. Admitting CTA chest: No evidence of PE, suggestive of extensive/diffuse multifocal pulmonary metastatic disease. Complete atelectasis of the left upper lobe and a small left pleural effusion. LDH 396 and uric acid 7.6 early in the admission Pulmonology evaluated, s/p cefepime 11/20 x 7days for possible necrotic pulmonary infection. Per d/w Dr. Eason 11/20, s/p decadron 40 mg QD x 4 days Pt progressively becoming weak since finishing decadron course, could be complicated by her current status and comorbidities. 11/26 CT Head w/ no acute process. Palliative care on board, appreciate recs Pt currently getting radiation day 08/07, plan to f/u w/ Dr. Eason as OP to discuss treatment options. Patient requires 2L O2, denies any chest pain or sore throat or cough. Has been on prn lasix for pul congestion. Pt remains weak and frail w/ poor appetite, prognosis guarded, dtr updated at bedside and made aware. Weakness likely secondary to high-dose steroid on the background progressive metastatic disease and old age: 7/25 CT head negative, 11/26 CXR no pulmonary congestion. See above. Hypertension: Blood pressure elevated likely secondary from Decadron during hospital course, amlodipine 2.5 Mg daily was started on top of home chlorthalidone. Blood pressure better. Electrolyte abnormalities: Monitor and replete as appropriate. Hypercalcemia: Calcium level mostly uptrending since 11/24. Chlorthalidone stopped. Vitamin D and calcium supplements stopped. 11/27 vitamin D level: 53.6, PTH intact 3.8, PTHrP pending. Could be hypercalcemia of malignancy. IV fluid resuscitation is complicated with pulmonary congestion, nephrology on board, appreciate recommendation. Zometa x 1 dose 11/29. Other chronic medical conditions: HTN, glucose intolerance ---> resume home meds as able. DVT prophylaxis: Lovenox DNR/DNI Disposition: Palliative care consulted, PT/OT, CM to assist with DC planning. Will need 2 step prior to DC. Prognosis Guarded. Admission and Anticipated Discharge Date Admission Date: November 19, 2021 Subjective Patient seen and examined at bedside as a follow-up of acute hypoxemic respiratory failure most likely from extensive metastatic lung disease on the background of diffuse large B-cell lymphoma and weakness/confusion likely secondary to high-dose steroids, iatrogenic. Patient was lying in bed, on 2 L nasal cannula oxygen, awake, denies any acute events overnight, reports eating little which has been going on for a while, reports feeling tired and weak, reports no problem w/ radiation. Patient denies headache or chest pain or other discomfort at bedside exam. Dtr at bedside during exam, reports she ate little better today. Physical Exam Physical Exam: GENERAL: Alert and oriented x3. NAD, on 2L NC O2 HEENT: No pallor, no icterus. Pupils equal, round and reactive to light. Oral mucosa moist. NECK: No JVD, no neck masses. HEART: S1 and S2 heard. Regular rate and rhythm. Systolic murmur at Aortic > Pulmonic area, no gallop. RESPIRATORY SYSTEM: Normal AP diameter. No accessory muscle use. No wheezing, no crackles. ABDOMEN: Soft, bowel sounds present, nontender, no distention. CENTRAL NERVOUS SYSTEM: No facial droop. Speech is clear. Obeys simple commands. Moves extremities. EXTREMITIES: No edema, no erythema seen. Results & Data Results & Data ([facility]) Vital Signs (Past 12 Hours) Vital Signs Temp Pulse Resp BP Pulse Ox O2 Del Method O2 Flow Rate 11/29/21 14:51 36.7 C 88 16 119/77 91 Nasal Cannula 2 11/29/21 08:38 Nasal Cannula 2
[2021-11-29] MEDS: MAGNESIUM OXIDE 400 MG TAB PO SCH (21:42)
[2021-11-30 09:33] LABS: BUN Creatinine Ratio 38.6 (10-20); Calcium 11.1 mg/dl (8.5-10.1); Creatinine Clr Calc Pharmacy 40.1 ml/min; Est GFR (African American) 72.5 ml/min; Est GFR (Non-African American) 62.5 ml/min; Magnesium 1.7 mg/dl (1.7-2.4); Phosphorus 4.4 mg/dl (2.5-4.9); Potassium 3.4 mmol/L (3.5-5.1)
[2021-11-30] MEDS: amLODIPine BESYLATE 5 MG TAB PO SCH (09:54)
[2021-11-30] MEDS: ASPIRIN 81 MG ECTAB PO SCH (09:55)
[2021-11-30] MEDS: MAGNESIUM OXIDE 400 MG TAB PO SCH ×2 (09:56→20:43)
[2021-11-30] MEDS: POT PHOSPHATE MONOBASIC W/ SOD TAB PO SCH ×4 (09:57→20:43)
[2021-11-30] MEDS: ENOXAPARIN INJ 40 MG/0.4 ML SYR SQ SCH (09:57)
[2021-11-30] MEDS: ONDANSETRON INJ 2 MG/ML 2 ML VIAL IV PRN (10:13)
[2021-11-30] MEDS: ACETAMINOPHEN 325 MG TAB PO PRN (10:17)
[2021-11-30] MEDS ORDERED: POTASSIUM CHLORIDE 20 MEQ/15 ML UDC PO STA (10:17)
--- NOTE | 2021-11-30 11:19 | Nephrology Progress Note ---
Date of Service November 30, 2021 Assessment & Plan (1) Hypercalcemia: Plan: likeliest from her lymphoma. hypercalcemia of Calcium was 11.4 on 11/19 presentation which improved to normal levels while she was on Decadron and fluids. after stopping these, calcium started rising, 11.4 > 10.9>11>11.8>11.5. Calcium 11.1 today CXR 11/27 w/o vascular congestion/plm edema but extensive disease - moderate hypercalcemia>calcium climbing but too low to consider calcitonin and only today could give zometa; plan to give calcitonin if needed when ca closer to 14 or depending on clinical course; can potentially be given as an OP by oncology -Patient received zometa 4 mg IV x 1 on 11/21/2021 -We will give calcitonin 250 units bid -Patient can be discharged tomorrow if calcium is slightly better. She will need to get Zometa as an outpatient by her oncologist 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; hypoxic on presentation which is new Admission and Anticipated Discharge Date Admission Date: November 19, 2021 Subjective Seen in follow-up for hypercalcemia. Main complaint is weakness. She is going for radiation today. She is on oxygen nasal cannula. Review of Systems Review of Systems: All other systems were reviewed and negative except as noted in HPI Physical Exam Physical Exam: General exam: Mild respiratory distress with minimal exertion HEENT: Pupils are equal and reactive to light Neck: No JVD, neck is supple trachea is midline Respiratory system: Clear breath sounds bilaterally. Gastrointestinal: Abdomen is soft, non distended, non tender, bowel sounds are present CVS: Regular rate and rhythm. No murmurs, rubs or gallops Musculoskeletal: No joint or muscle tenderness Extremities: Non tender, no edema, peripheral pulses are present Neuro: Oriented, no tremors, no focal neurological deficits Skin: No rashes Results & Data ([facility]) Vital Signs (Past 12 Hours) Vital Signs Temp Pulse Resp BP Pulse Ox O2 Del Method O2 Flow Rate 11/30/21 10:01 Nasal Cannula 2 11/30/21 07:20 36.6 C 86 18 133/76 92 Nasal Cannula 2 Laboratory Results 11/30/21 07:54 11/30/21 07:54 Phosphorus 4.4 D
[2021-11-30] MEDS ORDERED: CALCITONIN SALMON 400 UNITS/2 ML SQ SCH (11:30)
[2021-11-30] MEDS: CALCITONIN SALMON 400 UNITS/2 ML SQ SCH ×2 (12:35→21:46)
--- NOTE | 2021-11-30 19:01 | Hospitalist Progress Note ---
Date of Service November 30, 2021 Assessment & Plan (1) Metastatic cancer: Plan 89-year-old lady with PMH of diffuse large B-cell lymphoma of multiple recent status post chemo, HLD, glucose intolerance, HTN, vitamin D deficiency, osteoporosis, plantar fasciitis presented 11/19 to our ED with complaint of shortness of breath. 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 She received 6 cycles of mini R-CHOP treatment, last cycle was given in February 2021. She had a recent PET scan done in [facility] which showed lung involvement. She was saturating 87% on room air in the ED. She is being managed for the following: Acute hypoxemic respiratory failure, most likely from extensive metastatic lung disease: Patient saturating 87% on room air at presentation with tachypnea. History of diffuse large B-cell lymphoma: seems to be high-grade, status post chemo see above Patient had recent PET scan in the [facility] which showed lung involvement, and patient was supposed to follow-up with oncology on . Patient came into the ED 11/19 with complaint of shortness of breath. Was saturating 87% on room air, needed 2 L oxygen at presentation. Admitting CTA chest: No evidence of PE, suggestive of extensive/diffuse multifocal pulmonary metastatic disease. Complete atelectasis of the left upper lobe and a small left pleural effusion. LDH 396 and uric acid 7.6 early in the admission Pulmonology evaluated, s/p cefepime 11/20 x 7days for possible necrotic pulmonary infection. Per d/w Dr. Eason 11/20, s/p decadron 40 mg QD x 4 days Pt progressively becoming weak since finishing decadron course, could be complicated by her current status and comorbidities. 11/26 CT Head w/ no acute process. Palliative care on board, appreciate recs Pt currently getting radiation day 09/06, plan to f/u w/ Dr. Eason as OP to discuss treatment options. Patient requires 2L O2, denies any chest pain or sore throat or cough. Has been on prn lasix for pul congestion. Pt remains weak and frail w/ poor appetite, prognosis guarded, son updated at bedside and made aware. Weakness likely secondary to high-dose steroid on the background progressive metastatic disease and old age: 7/25 CT head negative, 11/26 CXR no pulmonary congestion. See above. Hypertension: Blood pressure elevated likely secondary from Decadron during hospital course, amlodipine 2.5 Mg daily was started on top of home chlorthalidone. Blood pressure better. Electrolyte abnormalities: Monitor and replete as appropriate. Hypercalcemia: Ca 11.1 today. Calcium level mostly uptrending since 11/24. Chlorthalidone stopped. Vitamin D and calcium supplements stopped. 11/27 vitamin D level: 53.6, PTH intact 3.8, PTHrP pending. Could be hypercalcemia of malignancy. IV fluid resuscitation is complicated with pulmonary congestion, nephrology on board, appreciate recommendation. Zometa x 1 dose 11/29. Per Nephro on calcitonin, will need zometa per oncologist as OP. Other chronic medical conditions: HTN, glucose intolerance ---> resume home meds as able. DVT prophylaxis: Lovenox DNR/DNI Disposition: Palliative care consulted, PT/OT, CM to assist with DC planning. Will need 2 step prior to DC. Prognosis Guarded. Likely DC sofie if Ca improving. Will likely need placement, yet to be figured out. Admission and Anticipated Discharge Date Admission Date: November 19, 2021 Subjective Patient seen and examined at bedside as a follow-up of acute hypoxemic respiratory failure most likely from extensive metastatic lung disease on the background of diffuse large B-cell lymphoma and weakness/confusion likely secondary to high-dose steroids, iatrogenic. Patient was lying in bed, on 2 L nasal cannula oxygen, awake, denies any acute events overnight, reports eating little which has been going on for a while, reports feeling tired and weak, reports no problem w/ radiation. Patient denies headache or chest pain or other discomfort at bedside exam. Son at bedside during exam, updated. Physical Exam Physical Exam: GENERAL: Alert and oriented x3. NAD, on 2L NC O2 HEENT: No pallor, no icterus. Pupils equal, round and reactive to light. Oral mucosa moist. NECK: No JVD, no neck masses. HEART: S1 and S2 heard. Regular rate and rhythm. Systolic murmur at Aortic > Pulmonic area, no gallop. RESPIRATORY SYSTEM: Normal AP diameter. No accessory muscle use. No wheezing, no crackles. ABDOMEN: Soft, bowel sounds present, nontender, no distention. CENTRAL NERVOUS SYSTEM: No facial droop. Speech is clear. Obeys simple commands. Moves extremities. EXTREMITIES: No edema, no erythema seen. Results & Data Results & Data ([facility]) Vital Signs (Past 12 Hours) Vital Signs Temp Pulse Resp BP Pulse Ox O2 Del Method O2 Flow Rate 11/30/21 16:00 36.7 C 93 H 20 117/78 90 Nasal Cannula 3 11/30/21 11:47 Nasal Cannula 2 11/30/21 10:01 Nasal Cannula 2 11/30/21 07:20 36.6 C 86 18 133/76 92 Nasal Cannula 2
[2021-12-01 02:46] LABS: Vitamin D 1,25 85 pg/mL (18-72); Vitamin D3,1,25 85 pg/mL
[2021-12-01] MEDS: ONDANSETRON INJ 2 MG/ML 2 ML VIAL IV PRN ×2 (05:58→16:44)
[2021-12-01 07:51] LABS: BUN Creatinine Ratio 31.7 (10-20); Calcium 10.9 mg/dl (8.5-10.1); Est GFR (African American) 55.2 ml/min; Est GFR (Non-African American) 47.6 ml/min; Magnesium 1.5 mg/dl (1.7-2.4); Phosphorus 7.3 mg/dl (2.5-4.9); Potassium 3.7 mmol/L (3.5-5.1)
[2021-12-01] MEDS ORDERED: FUROSEMIDE INJ 20 MG/2 ML VIAL IV ONE (08:36)
[2021-12-01] MEDS: LEVALBUTEROL HCL 1.25 MG/3 ML NEB NEB PRN ×2 (08:44→17:22)
--- NOTE | 2021-12-01 08:49 | XRay Report ---
XR chest 1V portable HISTORY: 89 years-old Female f/u, crackles acute shortness of breath COMPARISON: Chest radiograph 11/26/2021, CTA chest 11/19/2021 TECHNIQUE: Portable AP view of the chest FINDINGS: Cardiac silhouette is enlarged. Atherosclerosis of the aorta. Multifocal large pulmonary metastasis r edemonstrated. No pneumothorax. Left pleural effusion redemonstrated. There is increased opacificatio n of the left hemithorax with associated volume loss and mild leftward midline shift. Degenerative ch anges of the shoulders and spine. Rotator cuff calcific tendinosis is again noted bilaterally. IMPRESSION: 1. Extensive pulmonary metastasis redemonstrated. 2. Left pleural effusion with progressive opacification and volume loss of the left lung. ACT 112: Negative or not required by law. The above report was generated using voice recognition software. It may contain grammatical, syntax o r spelling errors. Electronically signed by: Mayank Celestin M.D. 12/01/2021 8:47 AM
[2021-12-01 09:53] LABS: Base Excess ABG 16.9 mEq/L (-9-1.8); HCO3 ABG 43 mmol/L (19-24); Oxygen Saturation ABG 97.3 % (90-95); PCO2 ABG 55 mmHg (35-46); PO2 ABG 72 mmHg (80-95)
[2021-12-01 09:56] LABS: Allen Test Pos (Pos)
[2021-12-01] MEDS: amLODIPine BESYLATE 5 MG TAB PO SCH (10:05)
[2021-12-01] MEDS: ENOXAPARIN INJ 40 MG/0.4 ML SYR SQ SCH (10:06)
[2021-12-01] MEDS: MAGNESIUM SULFATE / D5W 1 GM/100 ML BAG IV SCH ×3 (10:06→14:26)
[2021-12-01] MEDS: ASPIRIN 81 MG ECTAB PO SCH (10:06)
[2021-12-01] MEDS: MAGNESIUM OXIDE 400 MG TAB PO SCH ×2 (10:07→21:15)
[2021-12-01] MEDS: CALCITONIN SALMON 400 UNITS/2 ML SQ SCH (11:55)
--- NOTE | 2021-12-01 17:47 | Hospitalist Progress Note ---
Date of Service December 01, 2021 Assessment & Plan (1) Metastatic cancer: Plan 89-year-old lady with PMH of diffuse large B-cell lymphoma of multiple recent status post chemo, HLD, glucose intolerance, HTN, vitamin D deficiency, osteoporosis, plantar fasciitis presented 11/19 to our ED with complaint of shortness of breath. 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 She received 6 cycles of mini R-CHOP treatment, last cycle was given in February 2021. She had a recent PET scan done in [facility] which showed lung involvement. She was saturating 87% on room air in the ED. She is being managed for the following: Acute hypoxemic respiratory failure, most likely from extensive metastatic lung disease: Patient saturating 87% on room air at presentation with tachypnea. History of diffuse large B-cell lymphoma: seems to be high-grade, status post chemo see above Patient had recent PET scan in the [facility] which showed lung involvement, and patient was supposed to follow-up with oncology on . Patient came into the ED 11/19 with complaint of shortness of breath. Was saturating 87% on room air, needed 2 L oxygen at presentation. Admitting CTA chest: No evidence of PE, suggestive of extensive/diffuse multifocal pulmonary metastatic disease. Complete atelectasis of the left upper lobe and a small left pleural effusion. LDH 396 and uric acid 7.6 early in the admission Pulmonology evaluated, s/p cefepime 11/20 x 7days for possible necrotic pulmonary infection. Per d/w Dr. Eason 11/20, s/p decadron 40 mg QD x 4 days Pt progressively becoming weak since finishing decadron course, could be complicated by her current status and comorbidities. 11/26 CT Head w/ no acute process. Palliative care on board, appreciate recs S/p Radiation 09/06. Re-discussed w/ Dr. Eason 12/01 am, since patient is not clinically stable despite radiation/high dose decadron, chemo would not be possible and prognosis is very poor. Patient requires 4-5L O2, denies any chest pain or sore throat or cough. Has been on prn lasix for pul congestion. Pt remains weak and frail w/ poor appetite, now even worsening prognosis guarded, family updated at bedside [ see subjective]. Weakness likely secondary to high-dose steroid on the background progressive metastatic disease and old age: 7/25 CT head negative, 12/01 CXR reviewed. See above. Hypertension: Blood pressure elevated likely secondary from Decadron during hospital course, on amlodipine 2.5 Mg daily. Blood pressure better. Electrolyte abnormalities: Monitor and replete as appropriate. Hypercalcemia: Ca 10.9 today. Calcium level mostly uptrending since 11/24. Chlorthalidone stopped. Vitamin D and calcium supplements stopped. 11/27 vitamin D level: 53.6, PTH intact 3.8, PTHrP pending. Could be hypercalcemia of malignancy. IV fluid resuscitation is complicated with pulmonary congestion, nephrology on board, appreciate recommendation. Zometa x 1 dose 11/29. Per Nephro on calcitonin, will need zometa per oncologist as OP. Other chronic medical conditions: HTN, glucose intolerance ---> resume home meds as able. DVT prophylaxis: Lovenox DNR/DNI Disposition: Palliative care consulted, PT/OT, CM to assist with DC planning. Prognosis Guarded. Family update, see subjective. Admission and Anticipated Discharge Date Admission Date: November 19, 2021 Subjective Patient seen and examined at bedside as a follow-up of acute hypoxemic respirat ory failure most likely from extensive metastatic lung disease on the background of diffuse large B-cell lymphoma and weakness/confusion likely secondary to high-dose steroids, iatrogenic. Patient was lying in bed, on 4 L nasal cannula oxygen, awake, had increased O2 requirement overnight, choked on pills in AM per RN, per RN eating very little to none and pt is extremely lethargic and tired. Pt made aware of the current status and she accepts the fact that prognosis is poor, wouldn't want chemo or aggressive measures and would like to wait for family regarding other decisions. Updated whole family members at bedside (2 sons, Dtrs, and son/dtr in laws), updated about current status and very poor prognosis. I had a discussion w/ Dr. Eason (pt's oncologist) in AM over the phone, due to her not improving despite high dose Decadron and 5 day of therapy w/ radiation, option of chemo is out of question due to poor health and she has very poor prognosis. Updated same discussion to family, answered all their questions, they seem to understand poor prognosis, and inquired what options they have, provided comfort care measures and hospice option; patient expressed interest to not stay in hospital initially and hence consulted CM for hospice and asked CM to provide further directions. Follow up conversation later in the evening, family remains undecided but appears they are leaning towards comfort care but location is not determined. Family to update RN, until then continue w/ current level of care. Physical Exam Physical Exam: GENERAL: lethargic and oriented x3. NAD, on 4L NC O2. Old, frail, sick appearing. HEENT: No pallor, no icterus. Pupils equal, round and reactive to light. Oral mucosa moist. NECK: No JVD, no neck masses. HEART: S1 and S2 heard. Regular rate and rhythm. Systolic murmur at Aortic > Pulmonic area, no gallop. RESPIRATORY SYSTEM: Normal AP diameter. No accessory muscle use. No wheezing, no crackles. ABDOMEN: Soft, bowel sounds present, nontender, no distention. CENTRAL NERVOUS SYSTEM: No facial droop. Speech is clear. Obeys simple commands. Moves extremities. EXTREMITIES: No edema, no erythema seen. Results & Data Results & Data ([facility]) Vital Signs (Past 12 Hours) Vital Signs Temp Pulse Pulse Resp BP Pulse Ox O2 Del Method 12/01/21 17:25 91 H 16 92 Nasal Cannula 12/01/21 16:00 37.3 C 97 H 22 110/69 93 Nasal Cannula 12/01/21 08:00 36.9 C 88 20 119/72 99 Nasal Cannula 12/01/21 08:47 87 16 92 Nasal Cannula 12/01/21 08:32 Nasal Cannula O2 Flow Rate 12/01/21 17:25 5 12/01/21 16:00 5 12/01/21 08:00 5 12/01/21 08:47 4 12/01/21 08:32 4
[2021-12-02] MEDS: ONDANSETRON INJ 2 MG/ML 2 ML VIAL IV PRN (06:11)
[2021-12-02] MEDS: LEVALBUTEROL HCL 1.25 MG/3 ML NEB NEB PRN ×2 (06:16→14:55)
[2021-12-02 07:38] LABS: Hematocrit (blood only) 33.6 % (34.1-44.9); Hemoglobin 10.7 g/dl (12.0-16.0); Mean Corpuscular Hemoglobin 27.6 pg (25.0-34.0); Mean Corpuscular Hgb Conc 31.8 g/dL (32.0-36.0); Mean Corpuscular Volume 86.8 fL (80.0-100.0); Mean Platelet Volume 11.4 fL (9.4-12.3); Platelet Count 159 K/uL (130-400); RDW Standard Deviation 47.5 fL (36.4-46.3); Red Blood Count 3.87 M/uL (3.93-5.22); White Blood Count 13.56 K/ul (4.8-10.8)
[2021-12-02 08:05] LABS: BUN Creatinine Ratio 28.6 (10-20); Calcium 10.2 mg/dl (8.5-10.1); Creatinine Clr Calc Pharmacy 29.7 ml/min; Est GFR (African American) 50.4 ml/min; Est GFR (Non-African American) 43.5 ml/min; Magnesium 2.3 mg/dl (1.7-2.4); Phosphorus 3.6 mg/dl (2.5-4.9)
[2021-12-02] MEDS: amLODIPine BESYLATE 5 MG TAB PO SCH (09:50)
[2021-12-02] MEDS: ASPIRIN 81 MG ECTAB PO SCH (09:50)
[2021-12-02] MEDS: MAGNESIUM OXIDE 400 MG TAB PO SCH (09:50)
[2021-12-02] MEDS: ENOXAPARIN INJ 40 MG/0.4 ML SYR SQ SCH (09:50)
--- NOTE | 2021-12-02 15:58 | Nephrology Progress Note ---
Date of Service December 02, 2021 Assessment & Plan (1) Hypercalcemia: Plan: likeliest from her lymphoma. hypercalcemia of Calcium was 11.4 on 11/19 presentation which improved to normal levels while she was on Decadron and fluids. after stopping these, calcium started rising, 11.4 > 10.9>11>11.8>11.5. Calcium in 10s today CXR 11/27 w/o vascular congestion/plm edema but extensive disease - moderate hypercalcemia improving -Patient received zometa 4 mg IV x 1 on 11/21/2021; also a few calcitonin doses will sign off; pls call if ? 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; hypoxic on presentation which is new and needing more 02 and more dypsneic now -defer to hsopitalist on whether how to work up dyspnea here; recommend comfort measures -too weak for CTX > so conservative measures/palliative approach in the works Admission and Anticipated Discharge Date Admission Date: November 19, 2021 Subjective pt c/o more dypsnea; events from yesterday noted - not a chemo candidate; pt and family making preparations for hospice; pt more sob today; no N; no pain Review of Systems Review of Systems: All systems reviewed & are unremarkable except as noted in Subjective Physical Exam Constitutional: well developed, + frail appearing and + lethargic (wakens briefly ); no acute distress Eyes: EOM intact bilaterally ENMT: Ears: no external ear abnormality Nose: no external nose abnormality Mouth: + dry oral mucous membranes Neck: no nuchal rigidity Respiratory: normal respiratory effort, + labored breathing (slight), + tachypneic and + paradoxical thoraco-abdominal movement Auscultation: + diminished lung sounds and + crackles (bibasilar) Cardiovascular: Rate/Rhythm: regular rate and regular rhythm Extremities: + edema (trace pretibial) Gastrointestinal (Abdomen): Inspection/Auscultation: normal bowel sounds Percussion/Palpation: + abdomen tender (L sided upper and danish lower abd TTP) and abdomen soft; no guarding Musculoskeletal: Extremities: strength 5/5 throughout Skin: no rashes, warm and dry Psychiatric: oriented to self and place Results & Data ([facility]) Vital Signs (Past 12 Hours) Vital Signs Temp Pulse Resp BP Pulse Ox O2 Del Method O2 Flow Rate 12/02/21 14:56 92 H 18 92 Nasal Cannula 5 12/02/21 08:12 36.5 C 84 16 112/69 93 Nasal Cannula 3 12/02/21 07:55 Nasal Cannula 3 12/02/21 06:18 81 22 93 Nasal Cannula 3 Laboratory Results 12/02/21 07:21 12/02/21 07:21
[2021-12-02] MEDS ORDERED: LORazepam 0.5 MG TAB PO PRN (16:39)
[2021-12-02] MEDS ORDERED: LORazepam 0.5 MG in SYRINGE 0.25 ML IV PRN (16:39)
[2021-12-02] MEDS ORDERED: MoRPHine SULFATE 5 MG/0.25 ML UDP PO PRN (16:39)
[2021-12-02] MEDS ORDERED: haloperidoL 1 MG TAB PO PRN (16:39)
[2021-12-02] MEDS ORDERED: ONDANSETRON 4 MG OD TAB SL PRN (16:39)
[2021-12-02] MEDS ORDERED: STAT IV Infusion **Titration per Protocol STA (16:39)
[2021-12-02] MEDS ORDERED: ONDANSETRON INJ 2 MG/ML 2 ML VIAL IV PRN (16:39)
[2021-12-02] MEDS ORDERED: MoRPHine SULF/NSS 100 MG/100 ML BAG IV SCH (16:45)
--- NOTE | 2021-12-02 16:50 | Hospitalist Progress Note ---
Date of Service December 02, 2021 Assessment & Plan (1) Metastatic cancer: Plan 89-year-old lady with PMH of diffuse large B-cell lymphoma of multiple recent status post chemo, HLD, glucose intolerance, HTN, vitamin D deficiency, osteoporosis, plantar fasciitis presented 11/19 to our ED with complaint of shortness of breath. 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 She received 6 cycles of mini R-CHOP treatment, last cycle was given in February 2021. She had a recent PET scan done in [facility] which showed lung involvement. She was saturating 87% on room air in the ED. She was managed for the following: Acute hypoxemic respiratory failure, most likely from extensive metastatic lung disease: Patient saturating 87% on room air at presentation with tachypnea. Status post high-dose Decadron and radiation therapy in hospital. No improvement. History of diffuse large B-cell lymphoma: seems to be high-grade, status post chemo see above Weakness likely secondary to high-dose steroid on the background progressive metastatic disease and old age: 7/25 CT head negative, 12/01 CXR reviewed. See above. Electrolyte abnormalities: Monitor and replete as appropriate. Hypercalcemia: Likely hypercalcemia of malignancy. Other chronic medical conditions: HTN, glucose intolerance ---> resume home meds as able. DNR/DNI On 12/02/2021 afternoon further discussion with the family member, family decided to go with comfort measures for the patient. Current active management discontinued, comfort measures medications instituted. Patient comfortable at bedside. Admission and Anticipated Discharge Date Admission Date: November 19, 2021 Subjective Patient seen and examined at bedside as a follow-up of acute hypoxemic respiratory failure most likely from extensive metastatic lung disease on the background of diffuse large B-cell lymphoma and weakness/confusion likely secondary to high-dose steroids, iatrogenic. Who is now comfort measures only status. Patient was lying in bed, on 3 L nasal cannula oxygen, lethargic, per RN extremely tired/lethargic/minimal appetite, pt reports being comfortable otherwi se though. Pt made aware of the current status and she accepts the fact that prognosis is poor, wouldn't want chemo or aggressive measures and would like to wait for family regarding other decisions. Further discussion with the family during the day, family would like to go ahead with comfort care measures only. Physical Exam Physical Exam: GENERAL: lethargic and oriented x3. NAD, on 3L NC O2. Old, frail, sick appearing. HEENT: No pallor, no icterus. Pupils equal, round and reactive to light. Oral mucosa moist. NECK: No JVD, no neck masses. HEART: S1 and S2 heard. Regular rate and rhythm. Systolic murmur at Aortic > Pulmonic area, no gallop. RESPIRATORY SYSTEM: Normal AP diameter. No accessory muscle use. No wheezing, no crackles. ABDOMEN: Soft, bowel sounds present, nontender, no distention. CENTRAL NERVOUS SYSTEM: No facial droop. Speech is clear. Obeys simple commands. Moves extremities. EXTREMITIES: No edema, no erythema seen. Results & Data Results & Data ([facility]) Vital Signs (Past 12 Hours) Vital Signs Temp Pulse Resp BP Pulse Ox O2 Del Method O2 Flow Rate 12/02/21 14:56 92 H 18 92 Nasal Cannula 5 12/02/21 08:12 36.5 C 84 16 112/69 93 Nasal Cannula 3 12/02/21 07:55 Nasal Cannula 3 12/02/21 06:18 81 22 93 Nasal Cannula 3
[2021-12-02] MEDS ORDERED: MoRPHine SULF/NSS 100 MG/100 ML BAG IV PRN (16:52)
[2021-12-03] MEDS: MoRPHine SULFATE 2 MG/ML CARP IV PRN ×2 (02:18→10:19)
--- NOTE | 2021-12-03 12:26 | Palliative Care Progress Note ---
Date of Service December 03, 2021 Assessment & Plan (1) Dyspnea: Plan: with hypoxic respiratory failure and B cell lymphoma PRN morphine effective. (2) Palliative care encounter: Plan: I spoke with her daughter Paige. Family is grieving but they accept Jovana's decision. They lost their father four years ago as well. Paige asked about morphine infusion. Would monitor prn morphine use as she is very comfortable at this time. Discussed transition to infusion of she is needing increasing or more frequent dosing. Paige agrees. She asked about prognosis which is likely a few days. It was very important to Paige that her son from [place] be here. He is in town and has been with her. Discussed with RN. Admission and Anticipated Discharge Date Admission Date: November 19, 2021 Subjective Patient and family decided over the weekend to shift focus of care to symptom management and comfort. She had some dyspnea earlier and received dose of morphine IV which was effective. At this time, she denies pain, dyspnea, anxiety. She is resting comfortably. Review of Systems Review of Systems: ESAS Pain 0/3 Dyspnea 0/3 Anxiety 0/3 Nausea 0/3 Drowsiness 1/3 PPS 30% Physical Exam Constitutional: no acute distress ENMT: Mouth: + dry oral mucous membranes Respiratory: normal respiratory effort; no labored breathing and does not use accessory muscles Neurologic: lethargic but arousable Results & Data ([facility]) Vital Signs (Past 12 Hours) Vital Signs O2 Del Method O2 Flow Rate 12/03/21 08:30 Nasal Cannula 5 PG Care Time/CCT Total # of Minutes Spent Total Time Spent: 28 Total Time Spent with Patient: Total time spent is greater than 50% in coordination of care (as documented) at patient's floor/unit and/or counseling patient: symptom management, family education and support Coding Level of Care Code 14128 Subseq Hosp Care Lvl 2 Diagnoses Dyspnea R06.00 Palliative care encounter Z51.5
--- NOTE | 2021-12-03 16:41 | Hospitalist Progress Note ---
Date of Service December 03, 2021 Assessment & Plan (1) Metastatic cancer: Plan 89-year-old lady with PMH of diffuse large B-cell lymphoma of multiple recent status post chemo, HLD, glucose intolerance, HTN, vitamin D deficiency, osteoporosis, plantar fasciitis presented 11/19 to our ED with complaint of shortness of breath. 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 She received 6 cycles of mini R-CHOP treatment, last cycle was given in February 2021. She had a recent PET scan done in [facility] which showed lung involvement. She was saturating 87% on room air in the ED. She was managed for the following: Acute hypoxemic respiratory failure, most likely from extensive metastatic lung disease: Patient saturating 87% on room air at presentation with tachypnea. Status post high-dose Decadron and radiation therapy in hospital. No improvement. History of diffuse large B-cell lymphoma: seems to be high-grade, status post chemo see above Weakness likely secondary to high-dose steroid on the background progressive metastatic disease and old age: 7/25 CT head negative, 12/01 CXR reviewed. See above. Electrolyte abnormalities: Monitor and replete as appropriate. Hypercalcemia: Likely hypercalcemia of malignancy. Other chronic medical conditions: HTN, glucose intolerance ---> resume home meds as able. DNR/DNI Patient on comfort measures status only, on as needed morphine, patient lying comfortably, denies any discomfort or pain. Admission and Anticipated Discharge Date Admission Date: November 19, 2021 Subjective Patient seen and examined at bedside as a follow-up of acute hypoxemic respiratory failure most likely from extensive metastatic lung disease on the background of diffuse large B-cell lymphoma and weakness/confusion likely secondary to high-dose steroids, iatrogenic. Who is now comfort measures only status Since 12/02/21. Patient was lying in bed, on 5 L nasal cannula oxygen, lethargic, per RN extremely tired/lethargic/minimal appetite, pt reports being comfortable otherwise though. Pt on comfort care meds. Physical Exam Physical Exam: GENERAL: lethargic and oriented x3. NAD, on 5L NC O2. Old, frail, sick appearing. Pt appears comfortable, no obvious tenderness on PA exam. No edema or erythema. Results & Data Results & Data ([facility]) Vital Signs (Past 12 Hours) Vital Signs O2 Del Method O2 Flow Rate 08/01/22 08:30 Nasal Cannula 5
[2021-12-04] MEDS: MoRPHine SULFATE 2 MG/ML CARP IV PRN ×3 (06:32→20:19)
--- NOTE | 2021-12-04 14:19 | Palliative Care Progress Note ---
Date of Service December 04, 2021 Assessment & Plan (1) Dyspnea: Plan: Intermittent. Continue prn morphine. (2) Palliative care encounter: Plan: Focus of care is comfort and symptom management. She is likely to within a week or two. I spoke with Paige and her brother Julius, on the phone and updated them. Discussed possibility of caring for Jovana at home with the support of hospice care. They were concerned that she may need opioid infusion and that would not be possible at home. Discussed some hospices have the ability to provide infusions but Jovana does not currently need that level of analgesia. They will consider this and discuss with case management. Discussed with Dr. De Paz and case management. Admission and Anticipated Discharge Date Admission Date: November 19, 2021 Subjective Awake and resting quietly. She denies pain or discomfort. Does have some anitone rtness of breath at times. She had one dose of morphine earlier this morning. Taking sips. She complains of feeling very tired and weak. Review of Systems Review of Systems: ESAS Pain 0/3 Dyspnea 1/3 Nausea 0/3 Anxiety 0/3 Fatigue 3/3 PPS30% Physical Exam Constitutional: + frail appearing ENMT: Mouth: + dry oral mucous membranes Respiratory: normal respiratory effort; no labored breathing Cardiovascular: LE Edema Neurologic: awake, confused at times, seems to think I am a family member Genitourinary: ivory catheter Results & Data ([facility]) Vital Signs (Past 12 Hours) Vital Signs Temp Pulse Resp BP Pulse Ox O2 Del Method O2 Flow Rate 12/04/21 08:15 Nasal Cannula 2 12/04/21 07:57 98.1 F 97 H 18 117/70 92 4 PG Care Time/CCT Total # of Minutes Spent Total Time Spent: 37 Total Time Spent with Patient: Total time spent is greater than 50% in coordination of care (as documented) at patient's floor/unit and/or counseling patient: symptom management, goals of care, family education and support, coordination of care. Coding Level of Care Code 80896 Subseq Hosp Care Lvl 3 Diagnoses Dyspnea R06.00 Palliative care encounter Z51.5
--- NOTE | 2021-12-04 17:32 | Hospitalist Progress Note ---
Date of Service December 04, 2021 Assessment & Plan (1) Metastatic cancer: Plan 89-year-old lady with PMH of diffuse large B-cell lymphoma of multiple recent status post chemo, HLD, glucose intolerance, HTN, vitamin D deficiency, osteoporosis, plantar fasciitis presented 11/19 to our ED with complaint of shortness of breath. 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 She received 6 cycles of mini R-CHOP treatment, last cycle was given in February 2021. She had a recent PET scan done in [facility] which showed lung involvement. She was saturating 87% on room air in the ED. She was managed for the following: Acute hypoxemic respiratory failure, most likely from extensive metastatic lung disease: Patient saturating 87% on room air at presentation with tachypnea. Status post high-dose Decadron and radiation therapy in hospital. No improvement. History of diffuse large B-cell lymphoma: seems to be high-grade, status post chemo see above Weakness likely secondary to high-dose steroid on the background progressive metastatic disease and old age: 7/25 CT head negative, 12/01 CXR reviewed. See above. Electrolyte abnormalities: Monitor and replete as appropriate. Hypercalcemia: Likely hypercalcemia of malignancy. Other chronic medical conditions: HTN, glucose intolerance ---> resume home meds as able. DNR/DNI Patient on comfort measures status only, on as needed morphine, patient lying comfortably, denies any discomfort or pain. Family updated at bedside, though she is in poor health but since we don't have or atleast we can't predict her further clinical worsening within few days, advised to consider hospice for which CM is helping. Admission and Anticipated Discharge Date Admission Date: November 19, 2021 Subjective Patient seen and examined at bedside as a follow-up of acute hypoxemic respiratory failure most likely from extensive metastatic lung disease on the background of diffuse large B-cell lymphoma and weakness/confusion likely secondary to high-dose steroids, iatrogenic. Who is now comfort measures only status Since 12/02/21. Patient was lying in bed, on 4 L nasal cannula oxygen, lethargic,ill looking, frail, reports tiredness/weak/some sob otherwise reports being comfortable. Physical Exam Physical Exam: GENERAL: ill, frail, elderly, lethargic and oriented x3. NAD, on 4L NC O2. Pt appears comfortable, no obvious tenderness on PA exam. No edema or erythema. Family at bedside. Results & Data Results & Data ([facility]) Vital Signs (Past 12 Hours) Vital Signs Temp Pulse Resp BP Pulse Ox O2 Del Method O2 Flow Rate 12/04/21 08:15 Nasal Cannula 2 12/04/21 07:57 36.7 C 97 H 18 117/70 92 4
[2021-12-04] MEDS: GLYCOPYRROLATE 0.2 MG/ML VIAL IV PRN (20:27)
[2021-12-05] MEDS: GLYCOPYRROLATE 0.2 MG/ML VIAL IV PRN ×4 (03:45→21:28)
[2021-12-05] MEDS: MoRPHine SULFATE 2 MG/ML CARP IV PRN ×2 (03:46→21:28)
--- NOTE | 2021-12-05 19:08 | Hospitalist Progress Note ---
Date of Service December 05, 2021 Assessment & Plan (1) Metastatic cancer: Plan 89-year-old lady with PMH of diffuse large B-cell lymphoma of multiple recent status post chemo, HLD, glucose intolerance, HTN, vitamin D deficiency, osteoporosis, plantar fasciitis presented 11/19 to our ED with complaint of shortness of breath. 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 She received 6 cycles of mini R-CHOP treatment, last cycle was given in February 2021. She had a recent PET scan done in [facility] which showed lung involvement. She was saturating 87% on room air in the ED. She was managed for the following: Acute hypoxemic respiratory failure, most likely from extensive metastatic lung disease: Patient saturating 87% on room air at presentation with tachypnea. Status post high-dose Decadron and radiation therapy in hospital. No improvement. History of diffuse large B-cell lymphoma: seems to be high-grade, status post chemo see above Weakness likely secondary to high-dose steroid on the background progressive metastatic disease and old age: 7/25 CT head negative, 12/01 CXR reviewed. See above. Electrolyte abnormalities: Monitor and replete as appropriate. Hypercalcemia: Likely hypercalcemia of malignancy. Other chronic medical conditions: HTN, glucose intolerance ---> resume home meds as able. DNR/DNI Patient on comfort measures status only, on as needed morphine, patient lying comfortably, denies any discomfort or pain. Family updated at bedside, though she is in poor health but since we don't have or atleast we can't predict her further clinical worsening within few days, advised to consider hospice for which CM is helping. Admission and Anticipated Discharge Date Admission Date: November 19, 2021 Subjective Patient seen and examined at bedside as a follow-up of acute hypoxemic respiratory failure most likely from extensive metastatic lung disease on the background of diffuse large B-cell lymphoma and weakness/confusion likely secondary to high-dose steroids, iatrogenic. Who is now comfort measures only status Since 12/02/21. Patient was lying in bed, on 4 L nasal cannula oxygen, lethargic,ill looking, frail, reports tiredness/weak/some sob otherwise reports being comfortable. Review of Systems Review of Systems: all noted and negative except for above Physical Exam Physical Exam: GENERAL: ill, frail, elderly, lethargic and oriented x3. NAD, on 4L NC O2. Pt appears comfortable, no obvious tenderness on PA exam. No edema or erythema. Rest of PE deferred to ensure patient comfort. Results & Data Results & Data ([facility]) Vital Signs (Past 12 Hours) Vital Signs Temp Pulse Resp BP Pulse Ox O2 Del Method O2 Flow Rate 12/05/21 14:42 36.6 C 91 H 16 132/83 93 Nasal Cannula 4
[2021-12-06] MEDS: MoRPHine SULFATE 2 MG/ML CARP IV PRN ×2 (06:01→15:10)
[2021-12-06] MEDS: GLYCOPYRROLATE 0.2 MG/ML VIAL IV PRN (06:01)
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
[2021-12-07] MEDS: GLYCOPYRROLATE 0.2 MG/ML VIAL IV PRN (03:13)
[2021-12-07] MEDS: MoRPHine SULFATE 2 MG/ML CARP IV PRN (03:13)
--- NOTE | 2021-12-07 10:53 | Palliative Care Progress Note ---
Date of Service December 07, 2021 Assessment & Plan (1) Dyspnea: Plan: with metastatic cancer. Morphine has been effective. Discussed with RN, would use roxanol rather than IV in anticipation of discharge home to ensure that it is effective. (2) Palliative care encounter: Plan: Anticipate discharge home to her daughter's home with hospice. Transport arranged for 3pm today. She will be followed by [facility]. Admission and Anticipated Discharge Date Admission Date: November 19, 2021 Subjective Sleeping but easily arousable. Denies pain or discomfort. Occasional cough. Used bedside commode this morning per RN. Review of Systems Review of Systems: ESAS Pain 0/3 Dyspnea 1/3 Nausea0/3 Drowsiness 1/3 PPS 40% Physical Exam Constitutional: no acute distress ENMT: Mouth: + dry oral mucous membranes Respiratory: normal respiratory effort; no labored breathing and does not use accessory muscles Cardiovascular: Rate/Rhythm: regular rate and regular rhythm Skin: warm and dry Results & Data ([facility]) Vital Signs (Past 12 Hours) Vital Signs Temp Pulse Pulse Resp BP Pulse Ox O2 Del Method 12/07/21 08:17 Nasal Cannula 12/07/21 07:24 98.2 F 92 H 92 H 16 144/79 H 94 Nasal Cannula O2 Flow Rate 12/07/21 08:17 2 12/07/21 07:24 4 PG Care Time/CCT Total # of Minutes Spent Total Time Spent with Patient: Total time spent is greater than 50% in coordination of care (as documented) at patient's floor/unit and/or counseling patient: Coding Level of Care Code 39421 Subseq Hosp Care Lvl 2 Diagnoses Dyspnea R06.00 Palliative care encounter Z51.5
--- NOTE | 2021-12-07 11:08 | Hospitalist Progress Note ---
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 She received 6 cycles of mini R-CHOP treatment, last cycle was given in February 2021. She had a recent PET scan done in [facility] which showed lung involvement. She was saturating 87% on room air in the ED. She was managed for the following: Acute hypoxemic respiratory failure, most likely from extensive metastatic lung disease: Patient saturating 87% on room air at presentation with tachypnea. Status post high-dose Decadron and radiation therapy in hospital. No improvement. History of diffuse large B-cell lymphoma: seems to be high-grade, status post chemo see above Weakness likely secondary to high-dose steroid on the background progressive metastatic disease and old age: 7/25 CT head negative, 12/01 CXR reviewed. See above. Electrolyte abnormalities: comfort measures - limit blood draws - pending home hospice today Hypercalcemia: Likely hypercalcemia of malignancy. Other chronic medical conditions: comfort measures DNR/DNI Patient on comfort measures status only and will be discharged to home hospice today 12/07/2021, on as needed morphine, patient lying comfortably, denies any discomfort or pain. Patient to be discharged to home hospice today 12/07/2021 Admission and Anticipated Discharge Date Admission Date: November 19, 2021 Subjective Patient sitting up in bed in NAD. Denies pain or discomfort. Occasional cough. Denies other complaints. Review of Systems Review of Systems: all noted and negative except for above Physical Exam Physical Exam: GENERAL: ill, frail, elderly, lethargic and oriented x3. NAD, on 4L NC O2. Pt appears comfortable, no obvious tenderness on PA exam. No edema or erythema. Rest of PE deferred to ensure patient comfort. Results & Data Results & Data ([facility]) Vital Signs (Past 12 Hours) Vital Signs Temp Pulse Pulse Resp BP Pulse Ox O2 Del Method 12/07/21 08:17 Nasal Cannula 12/07/21 07:24 36.8 C 92 H 92 H 16 144/79 H 94 Nasal Cannula O2 Flow Rate 08/05/22 08:17 2 12/07/21 07:24 4
--- NOTE | 2021-12-07 15:31 | Discharge Summary ---
Date of Service December 07, 2021 Admission HPI Per Admitting Provider This is an 89-year-old female with past medical history significant for hypertriglyceridemia, glucose intolerance, hypertension, vitamin D deficiency, osteoporosis, plantar fasciitis, diffuse large B-cell lymphoma of multiple regions, who presents with shortness of breath. The patient was diagnosed with large cell B-cell lymphoma in August of 2020. She received 6 cycles of mini R- CHOP treatment, last cycle was given in February 2021. It looks like recent PET scan is showing lung involvement and as per the daughter who is in the room patient was supposed to follow with hem/onc, but comes to the ER because of shor tness of breath and CT scan showing multiple lung lesions. She was 87% on room air, on 2 liters she is saturating okay, somewhat tachycardic, and blood pressure is high. Potassium was 3.1, magnesium was 1.3, calcium was 11.3. Denies any headache, denies any dizziness, no blurred visions, no earache, no runny nose, no sore throat. Has cough for some time. Appetite is poor. No difficulty swallowing. No chest pain. Has some shortness of breath on exertion. No nausea, no abdominal pain. Normal bowel and bladder movements. Has some swelling in the legs, and lately ambulating with a cane but doesn't ambulate much.. Lives with her daughter. Admission Exam Per Admitting Provider GENERAL: The patient is old and frail, not in acute distress. VITAL SIGNS: Temperature 36.8, pulse 105, respiratory rate currently in 20s, blood pressure 168/103, oxygen 93% on 2 liters. HEENT: Pupils equal, round and reactive to light. Oral mucosa moist. NECK: No JVD, no neck masses. CARDIOVASCULAR: S1 and S2 heard. Tachycardia. No murmurs. RESPIRATORY SYSTEM: Normal AP diameter. No accessory muscle use. No wheezing, no crackles. ABDOMEN: Soft, bowel sounds present, nontender, no distention. CENTRAL NERVOUS SYSTEM: Cranial nerves II-XII grossly intact, nonfocal. EXTREMITIES: Bilateral lower extremity edema present, no erythema seen. Principal Diagnosis hospice care Discharge Exam GENERAL: ill, frail, elderly, lethargic and oriented x3. NAD, on 4L NC O2. Pt appears comfortable, no obvious tenderness on PA exam. No edema or erythema. Rest of PE deferred to ensure patient comfort. 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 She received 6 cycles of mini R-CHOP treatment, last cycle was given in February 2021. She had a recent PET scan done in [facility] which showed lung involvement. She was saturating 87% on room air in the ED. She was managed for the following: Acute hypoxemic respiratory failure, most likely from extensive metastatic lung disease: Patient saturating 87% on room air at presentation with tachypnea. Status post high-dose Decadron and radiation therapy in hospital. No improvement. History of diffuse large B-cell lymphoma: seems to be high-grade, status post chemo see above Weakness likely secondary to high-dose steroid on the background progressive metastatic disease and old age: 7/25 CT head negative, 12/01 CXR reviewed. See above. Electrolyte abnormalities: comfort measures - limit blood draws - pending home hospice today Hypercalcemia: Likely hypercalcemia of malignancy. Other chronic medical conditions: comfort measures DNR/DNI Patient on comfort measures status only and will be discharged to home hospice today 12/07/2021, on as needed morphine, patient lying comfortably, denies any discomfort or pain. Patient to be discharged to home hospice today 12/07/2021 Total Time Total Time Spent Total Time Spent (In Minutes): 24 Total Time Includes: Examination of the Patient, Discharge Planning and Medication Reconciliation Discharge Plan Discharge Items Patient Disposition: Hospice - Home Reason For Visit: SOB Discharge Diagnosis: Hospice Activity: As commented below Activity Comment: comfort Non-emergency contact: Pain Management Call non-emergency contact if: you have any medication questions, your symptoms worsen and your pain is not controlled Follow-up/Referrals: Jossue Camara MD [Primary Care Provider] - Diet: Regular Addtl Attending Provider Instructions: You are being discharged to home hospice where your primary goal is comfort and to be around loved ones. Pending Studies at Discharge: No Stand-Alone Forms: My [facility] Medications and DC Order Prescriptions: New lorazepam [Ativan] 0.5 mg tablet 0.5 mg sublingual Q4H PRN (Reason: anxiety) Qty: 30 0RF morphine concentrate 100 mg/5 mL (20 mg/mL) solution 5 mg PO Q4H PRN (Reason: pain) Qty: 30 0RF Discontinued alendronate 70 mg tablet 70 mg PO WK Rx Instructions: TAKE THIS MED EVERY FRIDAY chlorthalidone 25 mg tablet 12.5 mg PO DAILY aspirin [Aspir-Low] 81 mg Tablet,Delayed Release (Dr/Ec) 81 mg PO DAILY calcium carbonate-vitamin D3 [Calcium 500 + D] 500 mg-5 mcg (200 unit) Tablet 1 tab PO DAILY cholecalciferol (vitamin D3) 50 mcg (2,000 unit) Tablet 50 mcg PO Q2D Rx Instructions: STANLEY THIS MED EVERY FRI/FRI/FRI/FRI alprazolam 0.5 mg tablet 0.25 mg PO HS polyethylene glycol 3350 [Miralax] 17 gram/dose Powder 17 g PO DAILY PRN (Reason: Constipation) Discharge Orders: Discharge Order (Routine); Ordered 12/07/21 Ordered By: Graeme Beck Admission Data Admit Date/Time: 11/19/21 22:54 Attending Provider: Graeme Beck Admit Provider: Francisco Teague Primary Care Provider: Jossue Camara Other Providers: Wilfrido De Paz ; Francisco Teague ; Mango Victor ; Ching Bañuelos ; Ritchie Hand Other Interventions: Discharge Summary Assessment (RN) Last Done: 12/07/21 12:00
--- NOTE | 2021-12-14 10:36 | Coding Query ---
CODING QUERY To promote full compliance with coding requirements relating to patient care, provider participation is requested in all cases of pediatric neurologist uncertainty. Please assist us with the question(s) below: Coding Question(s): There is documentation of history of Diffuse large B-cell Lymphoma and Nephrology Progress Notes on 11/27 and 11/28 document Hypercalcemia likeliest from her lymphoma, and the Radiation Oncology Consultation on 11/22 documents, "Reinitiation of systemic chemotherapy in light of the significant pulmonary recurrence", and, " February 2021. Patient completes her 6 cycles of mini R-CHOP. She tolerated chemotherapy well with complete disappearance of disease. She remains at high risk for recurrence. 09/28/2021. Patient is seen by Kelley PONCE. Patient complained of onset of cough for about a month COVID was ruled out. She recommended to surveillance CT of the chest abdomen and pelvis and neck and to return for follow-up with Dr. Eason in 4 months. 10/18/2021. CT of the neck with and without contrast was performed. This showed interval appearance of multiple masses in the visualized bilateral upper lobes highly concerning for progressive lymphoma. CT scan is recommended for further evaluation. Patient undergoes CT of the chest abdomen and pelvis with contrast IV and oral. This shows interval development of multiple bilateral pulmonary nodules and masses in the lungs with the largest on the right upper lobe measuring 4.8 x 3.9 cm. A confluent mass is noted in the left upper lobe extending into the hilum measuring 6.7 x 10.5 cm. There is a stable left adrenal nodule measuring 2.1 x 2.6 cm compatible with adenoma. There were no evidence of metastasis in the abdomen or pelvis. 11/16/2021. Patient undergoes restaging PET CT scan. This showed an increase in the size and number of intensely hypermetabolic pulmonary nodules/masses with diffuse involvement of the left upper lobe with activity up to 44.7 SUV. There was no metabolically active hilar, axillary or mediastinal adenopathy. In the abdomen and pelvis there was low-level activity associated with left adrenal adenoma but no metabolically active abdominal or pelvic lymphadenopathy. No abnormal bony findings appreciated and no abnormal head neck findings. Considering the intense activity and patient history they favor lymphomatous involvement [place] 5. 11/19/2021. Patient presents to the emergency department with complaint of hypoxia, shortness of breath, hypomagnesemia, hyperkalemia, metastatic lung carcinoma and hypokalemia. CT angiogram of the chest was performed. This revealed complete atelectasis of the left upper lobe with a small left pleural effusion. There were large mass lesions seen throughout both lungs consistent with multifocal metastatic disease with greater than 20 lesions identified. The largest lesion in the right lobe is seen in the upper lobe measuring up to 6 cm. The largest lesion in the left lung measured 4 cm. Upper lobe lesions cannot be evaluated due to atelectasis. There was complete occlusion of the left upper lobe bronchus. There is no mediastinal lymphadenopathy. The left hilum is partially obscured but no hilar adenopathy is clearly identified. No axillary adenopathy noted. A 2.2 cm left adrenal nodule is stable dating back to 2012. Skeletal structures are osteopenic with no lytic or blastic lesions noted. A stable 11 mm sclerotic focus in the left humeral head is unchanged since 2012. 11/20/2021. Dr. Eason recommended Decadron 40 mg daily for 4 days to ease her breathing. Clinically this has helped the patient. 11/22/2021. Patient seen by palliative care, Dr. Bañuelos. 11/22/2021. 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 She received 6 cycles of mini R-CHOP treatment, last cycle was given in February 2021. She had a recent PET scan done [facility] which showed lung involvement. She was saturating 87% on room air in the ED. She was managed for the following: Acute hypoxemic respiratory failure, most likely from extensive metastatic lung disease: Patient saturating 87% on room air at presentation with tachypnea. Status post high-dose Decadron and radiation therapy in hospital. No improvement. History of diffuse large B-cell lymphoma: seems to be high-grade, status post chemo see above". It is not clear, if there is Recurrence of the Diffuse B-Cell Lymphoma to the Lung, or intrathoracic Lymph Nodes or if this is Metastatic Lung Cancer with history of Diffuse B-Cell Lymphoma. Please specify below, in your clinical opinion. (X) Likely a Recurrence of Diffuse B-Cell Lymphoma to the Lung ( ) Likely a Recurrence of Diffuse B-Cell Lymphoma to the intrathoracic lymph nodes ( ) Likely Metastatic Lung Cancer from history of Diffuse B-Cell Lymphoma ( ) Other: Please Specify Physician's Response(s): Thank you Kady Barrios Principal Diagnosis: "that condition established after study, to be chiefly responsible for occasioning the admission of the patient to the hospital for care." Co-Existing Principal Diagnosis: "when two or more diagnoses equally meet the criteria for principal diagnosis as determined by the circumstances of admission, diagnostic work up, and/or therapy provided, and the Alphabetic Index, Tabular List, or another coding guideline does not provide sequencing direction, any one of the diagnoses may be sequenced first." "When the physician has documented what appears to be a current diagnosis in the body of the record, but has not included the diagnosis in the final diagnostic statement, the physician should be asked whether the diagnosis should be added." (Source [facility]oding [facility] 2 QTR90. p3-4) PHILLY
== END 2021-12-07 15:00 | disposition hospice, home (50) | DRG 840 ==
LOC: ED 18:34 → SUATTDRO 22:54 → 2S 22:54 → 2N 11-20 18:45 → 3W 11-29 01:53
DX: Z92.21 Personal history of antineoplastic chemotherapy; C83.39 Diffuse large B-cell lymphoma, extranodal and solid organ sites; E87.6 Hypokalemia; I10 Essential (primary) hypertension; J96.01 Acute respiratory failure with hypoxia; E83.52 Hypercalcemia; R41.0 Disorientation, unspecified; M81.0 Age-related osteoporosis without current pathological fracture; E87.3 Alkalosis; R60.0 Localized edema; E74.39 Other disorders of intestinal carbohydrate absorption; E55.9 Vitamin D deficiency, unspecified; Z66 Do not resuscitate; J85.0 Gangrene and necrosis of lung; R53.1 Weakness; Z79.82 Long term (current) use of aspirin; E83.42 Hypomagnesemia; T38.0X5A Adverse effect of glucocorticoids and synthetic analogues, initial encounter; Z79.899 Other long term (current) drug therapy; Z51.5 Encounter for palliative care